=== PATIENT | female | born 1945 | race Caucasian/White ===

== ENCOUNTER 2017-12-15 11:50 | Emergency (ER) | payer MEDICARE, SELFPAY ==
[2017-12-15 11:50] VITALS: BP 149/100; PULSE 80; RESP 24; TEMP 37.1; O2SAT 94; BMI 43.2
--- NOTE | 2017-12-15 12:20 | VDLE_ITS ---
Reason For Study: RLE SWELLING RIGHT GSV is normal. CFV is compressible, spontaneous, phasic, competent and demonstrates normal augmentation. FV is compressible, spontaneous, phasic, competent and demonstrates normal augmentation. POP V is compressible, spontaneous, phasic, competent and demonstrates normal augmentation. T/P Trunk is compressible. PTV is compressible. RT PerV is compressible. Procedure Exam performed portable in ED. The exam was diagnostic. The study was technically difficult. A preliminary report was called and/or faxed to ED. Interpretation Summary There is no evidence of right lower extremity deep vein thrombosis. Right greater saphenous vein appears patent and compressible segmentally. Technically difficult examination Ordering Physician: Mika Bonilla Referring Physician: Adrien Kerr Performed By: Erika Hong, HIGINIO, RVT
[2017-12-15] MEDS: Ondansetron 4 MG/2 ML Vial IV (12:57)
[2017-12-15] MEDS: Morphine 4 MG/ML Syringe IV (12:57)
[2017-12-15 13:17] LABS: Absolute Lymphocyte Count 1.42 X10^3/ul (0.83-4.51); Absolute Neutrophil Count 7.2 X10^3/uL (2.0-7.7); Anion Gap 10 (5-15); BUN 26 mg/dL (7-18); BUN/Creat Ratio 14.8 RATIO (10-20); Basophil# 0.03 X10^3/uL; Basophil% 0.3 % (0-1); Calcium,Total 8.8 mg/dL (8.5-10.1); Chloride 107 mmol/L (98-107); Creatinine, Serum 1.76 mg/dL (0.55-1.02); EST Glomerular Filtration Rate 30 mL/min (>60); Eosinophil# 0.28 X10^3/uL; Eosinophils% 2.7 % (0-5); Est Glom Filt Rate - Afr Amer 37 mL/min (>60); Estimated Creatinine Clearance 26.38 ml/min; Glucose 237 mg/dL (74-106); Hemoglobin 10.6 g/dl (12.0-15.0); Lymphocyte # 1.42 X10^3/ul (4.0); Lymphocyte % 13.9 % (19-41); Mean Corp Hgb Conc 30.3 g/gl (32-36); Mean Corpuscular Hgb 29.2 pg (27.0-32.0); Mean Corpuscular Volume 96.4 fL (81-99); Mean Platelet Vol. 10.4 fl (6.2-12.0); Monocyte% 11.7 % (0-10); Neutrophil # 7.24 X10^3/uL (2.7-7.7); Neutrophil % 70.8 % (47-70); POSITIVE COUNT NO; POSITIVE DIFFERENTIAL NO; POSITIVE MORPHOLOGY NO; Platelet Count 288 K/mm3 (150-450); Potassium 5.1 mmol/L (3.5-5.1); RBC Distribution Width CV 14.8 % (11.6-14.6); RBC Distribution Width SD 52.1 fl (35.1-43.9); Red Blood Count 3.63 M/mm3 (4.2-5.4); Sodium Level 140 mmol/L (136-145); White Blood Count 10.2 K/mm3 (4.4-11.0)
[2017-12-15] MEDS: Diphth,Pertuss(Acell),Tet Vac 0.5 ML Vial IM (14:29)
[2017-12-15 15:13] VITALS: RESP 16; O2SAT 98
--- NOTE | 2017-12-15 15:20 | ED.VISSUMM ---
- ER Visit Summary Date of Service: 12/15/17 Chief Complaint: Right leg wound History of Present Illness: The patient is a [address] Adrien Kerr. She reports that she had a blister on her right leg that opened up approximately 3 weeks ago. States that she was on Bactrim initially and then begin clindamycin on December 12. Reports that she had a stabbing pain is 10 out of 10 with symptoms in a dependent position and 9 out of 10 when it is elevated. She denies any constitutional symptoms. No fever, chills, nausea, or vomiting. Physical Examination: Vitals: Stable. Afebrile. General: Well-nourished and well-developed. Head: Normocephalic atraumatic. Neck: Supple, no lymphadenopathy. No JVD. Nontender. Cardiovascular: Regular rate and rhythm. No murmurs. Respiratory: No respiratory distress. Clear to auscultation bilaterally. Abdominal: Soft, nontender, nondistended, normal bowel sounds. No guarding, rebound, or peritoneal signs. Back: Nontender. Extremities: There is an approximately 6 x 8 cm superficial ulcer that appears to be from an unroofed blister. There is minimal surrounding erythema. She has chronic venous stasis changes in her legs bilaterally. She does have a palpable dorsalis pedis pulse. Skin: Normal color, no rash. Neurologic: Alert and oriented ?3. Cranial nerves II through XII are intact. Normal strength and sensation. Psych: Normal affect. Test Results: CBC is marked for an H&H 10.6 35.0, segment neutrophils 71, lymphs at 14, monocytes 12. Chem-7 more for BUN 26, creatinine 1.76, Chris 237. Right lower extreme Dopplers negative. Emergency Department Course and Treatment: Patient had her tetanus updated. She was given morphine and vancomycin IV. She is resting comfortably. Treatment Plan: Patient is already scheduled for a appointment at the wound clinic in 2 days. She is instructed to continue her clindamycin and keep this appointment. A wound culture was sent. She is being given a prescription for Percocet. Return to the emergency department for any worsening symptoms. Disposition: To home in improved and stable condition. Impression: 1. Right leg wound. This note was generated with [employer] dictation software. It may contain incorrect words, spelling, and punctuation that were not noted in review of the chart prior to signing ED Disposition - Plan for ED Patient: Disposition: Home or Assisted Living Chief Complaint: Wound Instructions: ED Wound Care Prescriptions: Oxycodone HCl/Acetaminophen [Percocet 5/325] 1 tablet PO Q6H PRN PRN 3 Days #12 tablet PRN Reason: Pain Referrals: Clinic,Wound [None] - Keep Aaron appointment
[2017-12-15 16:04] VITALS: BP 128/46; PULSE 80; RESP 16; O2SAT 93
== END 2017-12-15 16:06 | disposition home or self-care (01) ==
PROVIDERS: Emergency Provider Emergency Medicine; Family Provider Family Medicine; PCP Family Medicine
DX: L97.919 Non-pressure chronic ulcer of unspecified part of right lower leg with unspecified severity (principal); S80.821A Blister (nonthermal), right lower leg, initial encounter; I87.8 Other specified disorders of veins; X58.XXXA Exposure to other specified factors, initial encounter; Y93.9 Activity, unspecified; Y92.9 Unspecified place or not applicable; E11.9 Type 2 diabetes mellitus without complications; I10 Essential (primary) hypertension; H40.9 Unspecified glaucoma; E03.9 Hypothyroidism, unspecified; M19.90 Unspecified osteoarthritis, unspecified site; Z79.82 Long term (current) use of aspirin; Z79.4 Long term (current) use of insulin; Z79.84 Long term (current) use of oral hypoglycemic drugs; Z79.899 Other long term (current) drug therapy; M79.604 Pain in right leg
CPT/HCPCS: 80048; 85025; 87070; 87075; 87076; 87186; 87205; 90715; 93971; 96365; 96374; 96375; 99282; J7030; J7040; J2405

== ENCOUNTER 2017-12-17 08:19 | Outpatient (RCR) | payer MEDICARE, SELFPAY ==
[2017-12-17 09:06] VITALS: BP 149/69; PULSE 70; RESP 18; TEMP 36.3; BMI 41.9
--- NOTE | 2017-12-17 12:07 | PCM.WC.HP ---
(1) Ulcer of right lower extremity with fat layer exposed Status: Chronic Current Visit: Yes Code(s): L97.912 - Non-pressure chronic ulcer of unspecified part of right lower leg with fat layer exposed (2) Type II diabetes mellitus Status: Chronic Current Visit: Yes Code(s): E11.9 - Type 2 diabetes mellitus without complications History of Present Illness Chief Complaint: Right lower extremity ulcers. History of Wound: Ms. Rivera is a 72-year-old was in a stable state of health until couple weeks ago when she developed cellulitis with subsequent blistering of her right lower extremity. She was seen by primary care physician and started on antibiotics and was also recommended Darwin wraps. She subsequently developed 2 ulcers in the right lower extremity and again was seen by her primary care physician who advised continued wrapping. Ulcer persisted and she was subsequently referred to the wound center. Apart from wrapping wound they have not done any other treatments to the wound. She denies chills, fever or otherwise feeling of unwell. Past Medical History Past Medical History: Chronic Problems Ulcer of right lower extremity with fat layer exposed (Chronic) Type II diabetes mellitus (Chronic) Allergies/Adverse Reactions: Allergies No Known Allergies Allergy (Verified 12/15/17 11:50) Home Medications: Ambulatory Orders Medication Instructions Recorded Clindamycin HCl 300 mg PO 4X/DAY 12/15/17 Furosemide [Lasix] 40 mg PO DAILY 12/15/17 Leflunomide 10 mg PO DAILY 12/15/17 Levothyroxine [Synthroid] 125 mcg PO DAILY 12/15/17 Lisinopril [Zestril] 20 mg PO DAILY 12/15/17 Lovastatin [Mevacor] 40 mg PO DAILY 12/15/17 Metformin HCl [Glucophage] 500 mg PO BIDCM 12/15/17 Omeprazole 40 mg PO DAILY 12/15/17 Albuterol Inhaler [Ventolin Hfa 2 puff INHALATION Q4H PRN PRN 12/17/17 (SP)] Amlodipine Besylate [Norvasc] 10 mg PO DAILY 12/17/17 Aspirin 81 mg PO DAILY 12/17/17 Atenolol 50 mg PO BID 12/17/17 Doxazosin Mesylate [Cardura] 4 mg PO QHS 12/17/17 Ergocalciferol [Vitamin D] 50,000 unit PO Q7D 12/17/17 Golimumab [Simponi Aria] 50 mg IV 12/17/17 Hydroxyzine HCl 25 mg PO Q4H PRN PRN 12/17/17 Insulin NPH Human Isophane 70 unit SQ DAILY 12/17/17 [Novolin N] Insulin NPH/Reg 70/30 [Novolin 40 units SC BIDAC 12/17/17 70/30] Prednisone 2.5 mg PO DAILY 12/17/17 Timolol Maleate [Timoptic-XE 0.5%] 1 drop EACH EYE BID 12/17/17 Smoking Status: Former smoker Review of Systems Constitutional: Denies: Anorexia, Malaise, Weakness Eyes: Denies: Pain, Redness HEENT: Denies: Difficulty Hearing, Difficulty Swallowing Cardiovascular: Denies: Chest Pain, Chest Tightness Respiratory: Denies: Cough, Hemoptysis Gastrointestinal: Denies: Abdominal Pain, Hematemesis, Vomiting Skin: Denies: Jaundice - Physical Exam Vital Signs Temp Pulse Resp BP 97.3 F L 70 18 149/69 H 12/17/17 09:06 12/17/17 09:06 12/17/17 09:06 12/17/17 09:06 General: Alert, Oriented x3, Cooperative, No apparent distress HEENT: Atraumatic Oral: Moist Mucosa Neck: Supple Lungs: Clear to auscultation, Normal air movement Cardiovascular: Regular rate, Regular Rhythm Abdomen: Soft, Non Tender, Obese Extremities: No cyanosis, Edema Skin: Ulcer/ Wound Wound Measurements and Assessment WC - Nurse 1 - General Ulcer Measurement Start: 12/17/17 08:38 Freq: Status: Active Protocol: Activity Type Activity Date Activity User E-Sign Co-Sign Detail Recorded Client Recorded Date Recorded By Document 12/17/17 09:06 [id number] 12/17/17 09:14 12/17/17 09:06 Wound Center Nurse 1 [Ulcer Assessment] #2 RIGHT ABERNATHY -Combined with other wound No -Current Size (cm) - Length 8.2 -Current Size (cm) - Width 6.3 -Current Size (cm) - Depth 0.1 -Total Square Cm 51.66 -Date of Last Picture (Recall this 12/17/17 field) -Photo Taken Yes -Epithelialization None Present -Tunneling No -Undermining/Tunneling No -Circular Undermining No -Exudate Amt Medium (34-66%) -Exudate Type Serosanguineous -Wound Margin Distinct, Outline Attached -Granulation Amt Large (67-100%) -Granulation Quality Red -Slough/Fibrin Yes -Necrosis Amt None Present (0 %) -Necrotic Tissue Type Adherent Slough -Structure Exposed None/Limited to Skin Breakdown -Texture (Lilia-wound Skin Appearance) No Abnormality Assessed -Moisture (Lilia-wound Skin Appearance No Abnormality ) Assessed -Temperature (Lilia-wound Skin No Abnormality Appearance) (Pt Warm) -Tenderness on Palpation (Lilia-wound Yes Skin Appearance) -Ulcer Cleansing Rinsed/ Irrigated with Saline -Foul Odor after Cleansing No -Anesthetic Used 4% Lidocaine Solution #1 RIGHT POST. CALF -Combined with other wound No -Current Size (cm) - Length 2.5 -Current Size (cm) - Width 3.0 -Current Size (cm) - Depth 0.1 -Total Square Cm 7.50 -Date of Last Picture (Recall this 12/17/17 field) -Photo Taken Yes -Epithelialization None Present -Tunneling No -Undermining/Tunneling No -Circular Undermining No -Exudate Amt Medium (34-66%) -Exudate Type Serosanguineous -Wound Margin Distinct, Outline Attached -Granulation Amt Medium (34-66%) -Granulation Quality Red -Slough/Fibrin Yes -Necrosis Amt None Present (0 %) -Necrotic Tissue Type Adherent Slough -Structure Exposed None/Limited to Skin Breakdown -Texture (Lilia-wound Skin Appearance) No Abnormality Assessed -Moisture (Lilia-wound Skin Appearance No Abnormality ) Assessed -Color (Lilia-wound Skin Appearance) No Abnormality Assessed -Temperature (Lilia-wound Skin No Abnormality Appearance) (Pt Warm) -Tenderness on Palpation (Lilia-wound Yes Skin Appearance) -Ulcer Cleansing Rinsed/ Irrigated with Saline -Foul Odor after Cleansing No -Anesthetic Used 4% Lidocaine Solution [Edema Assessment] -Lower Limb Edema Present Yes -Right Calf (cm) 37 -Right Ankle (cm) 22 -Left Calf (cm) 40 -Left Ankle (cm) 21.5 WC - Nurse 2 - General Ulcer CM Notes Start: 12/17/17 08:38 Freq: Status: Active Protocol: Activity Type Activity Date Activity User E-Sign Co-Sign Detail Recorded Client Recorded Date Recorded By Document 12/17/17 09:31 MW [id number] 12/17/17 09:40 MW 12/17/17 09:31 Wound Center Nurse 2 [Procedure/Treatment] #2 RIGHT ABERNATHY -Time 09:32 -Correct Patient Yes -Correct Side, Site, Position Yes -Correct Procedure Yes -Procedure Performed Yes -Type of Procedure Debridement -Clinical Debridement Subcutaneous -Post Debridement Size (cm) - Length 8.6 -Post Debridement Size (cm) - Width 6.8 -Post Debridement Size (cm) - Depth 0.1 -Total Square Cm 58.48 -Wound/Ulcer Outcome Not Healed -Ulcer Cleansing Rinsed/ Irrigated with Saline -Foul Odor after Cleansing No -Bioengineered Tissue No -Bleeding Controlled with Pressure -Treatment Response Procedure Tolerated Well #1 RIGHT POST. CALF -Time 09:32 -Correct Patient Yes -Correct Side, Site, Position Yes -Correct Procedure Yes -Procedure Performed Yes -Type of Procedure Debridement -Clinical Debridement Subcutaneous -Post Debridement Size (cm) - Length 2.5 -Post Debridement Size (cm) - Width 2.6 -Post Debridement Size (cm) - Depth 0.1 -Total Square Cm 6.50 -Wound/Ulcer Outcome Not Healed -Ulcer Cleansing Rinsed/ Irrigated with Saline -Foul Odor after Cleansing No -Bioengineered Tissue No -Bleeding Controlled with Pressure -Treatment Response Procedure Tolerated Well [See Physician Procedure note for Specifics] Pain Scale: 0-10 Numeric [Pain] -Is Patient Pain Free? Yes Musculoskeletal: No Muscle Wasting Neurological: Cranial nerves II-XII grossly intact Psych/Mental Status: Normal Affect Debridement Note Post-Debridement Measurements/Treatment WC - Nurse 2 - General Ulcer CM Notes Start: 12/17/17 08:38 Freq: Status: Active Protocol: Activity Type Activity Date Activity User E-Sign Co-Sign Detail Recorded Client Recorded Date Recorded By Document 12/17/17 09:31 MW [id number] 12/17/17 09:40 MW 12/17/17 09:31 Wound Center Nurse 2 #2 RIGHT ABERNATHY -Time 09:32 -Correct Patient Yes -Correct Side, Site, Position Yes -Correct Procedure Yes -Procedure Performed Yes -Type of Procedure Debridement -Clinical Debridement Subcutaneous -Post Debridement Size (cm) - Length 8.6 -Post Debridement Size (cm) - Width 6.8 -Post Debridement Size (cm) - Depth 0.1 -Total Square Cm 58.48 -Wound/Ulcer Outcome Not Healed -Ulcer Cleansing Rinsed/ Irrigated with Saline -Foul Odor after Cleansing No -Bioengineered Tissue No -Bleeding Controlled with Pressure -Treatment Response Procedure Tolerated Well #1 RIGHT POST. CALF -Time 09:32 -Correct Patient Yes -Correct Side, Site, Position Yes -Correct Procedure Yes -Procedure Performed Yes -Type of Procedure Debridement -Clinical Debridement Subcutaneous -Post Debridement Size (cm) - Length 2.5 -Post Debridement Size (cm) - Width 2.6 -Post Debridement Size (cm) - Depth 0.1 -Total Square Cm 6.50 -Wound/Ulcer Outcome Not Healed -Ulcer Cleansing Rinsed/ Irrigated with Saline -Foul Odor after Cleansing No -Bioengineered Tissue No -Bleeding Controlled with Pressure -Treatment Response Procedure Tolerated Well Pain Scale: 0-10 Numeric Is Patient Pain Free? Yes Wound debrided: Right lower extremity abernathy Wound Grade/Stage: Stage II Type of Debridement: Excisional debridement Anesthesia Used: 4% Lidocaine Solution Depth: Down to and including healthy tissue, in the subcutaneous layer Instrument Used: 7mm curette Tissue Removed: Slough and devitalized tissue Severity: Fat Layer Exposed Amount of bleeding with debridement: Mild Bleeding Controlled with: Pressure Patient tolerated procedure well - Additional Wound Wound debrided: Right lower extremity posterior Wound Grade/Stage: Stage II Type of Debridement: Excisional debridement Anesthesia Used: 4% Lidocaine Solution Depth: Down to and including healthy tissue, in the subcutaneous layer Percentage of wound debrided: 100 Instrument Used: 3mm curette Tissue Removed: Slough and devitalized tissue Severity: Fat Layer Exposed Amount of bleeding with debridement: Mild Patient tolerated procedure: Patient tolerated procedure well Assessment/Plan Active Problems Ulcer of right lower extremity with fat layer exposed (Chronic) Type II diabetes mellitus (Chronic) Assessment: Right anterior lower extremity ulcer with slightly exposed. Nonhealing. Right posterior lower extremity ulcer with fat layer exposed. Nonhealing. Type 2 diabetes mellitus. Plan: Debridement of both ulcers done as documented above. Procedure was well-tolerated. Free recall to both ulcers with Adaptic over top. Change daily to twice daily depending on drainage. Tubigrip's for edema management. Advised to elevate lower extremities when sitting and in bed. Increase protein intake also recommended. Avoid idle standing. Exercise and weight loss as tolerated. Optimal blood sugar control also recommended, follow-up with PCP. All her questions were answered and she was advised to call with any further questions or concerns. Follow-up in 1 week. This note was generated with [employer] software. It may contain incorrect words, spelling, and punctuation that were not noted in checking the note before signing.
== END 2017-12-21 23:59 ==
LOC: WC 08:19
PROVIDERS: Family Provider Family Medicine; PCP Family Medicine; Visit Provider Internal Medicine
DX: E11.622 Type 2 diabetes mellitus with other skin ulcer (principal); L97.812 Non-pressure chronic ulcer of other part of right lower leg with fat layer exposed; Z79.84 Long term (current) use of oral hypoglycemic drugs; Z79.899 Other long term (current) drug therapy; Z87.891 Personal history of nicotine dependence
CPT/HCPCS: 11042; 11045; 99213; G0463

== ENCOUNTER 2018-01-15 08:30 | Outpatient (RCR) | payer MEDICARE, SELFPAY ==
[2017-12-22 01:49] VITALS: BP 149/69; PULSE 70; RESP 18; TEMP 36.3
[2017-12-25 12:21] VITALS: BP 114/86; PULSE 83; RESP 18; TEMP 36.3
--- NOTE | 2017-12-25 13:31 | PCM.WC.PN ---
(1) Ulcer of right lower extremity with fat layer exposed Status: Chronic Current Visit: Yes Code(s): L97.912 - Non-pressure chronic ulcer of unspecified part of right lower leg with fat layer exposed (2) Type II diabetes mellitus Status: Chronic Current Visit: No Code(s): E11.9 - Type 2 diabetes mellitus without complications Type of Wound Chief Complaint: Right lower extremity ulcers. History of Wound: Ms. Rivera is a 72-year-old was in a stable state of health until couple weeks ago when she developed cellulitis with subsequent blistering of her right lower extremity. She was seen by primary care physician and started on antibiotics and was also recommended Darwin wraps. She subsequently developed 2 ulcers in the right lower extremity and again was seen by her primary care physician who advised continued wrapping. Ulcer persisted and she was subsequently referred to the wound center. Apart from wrapping wound they have not done any other treatments to the wound. She denies chills, fever or otherwise feeling of unwell. Progress of Wound: Stable. Has completed her course of antibiotic but still reports significant pain. - Physical Exam Vital Signs Temp Pulse Resp BP 97.3 F L 83 18 114/86 H 12/25/17 12:21 12/25/17 12:21 12/25/17 12:21 12/25/17 12:21 General: Alert, Oriented x3, Cooperative, No apparent distress HEENT: Atraumatic Oral: Moist Mucosa Neck: Supple Lungs: Normal air movement Extremities: No cyanosis, Edema Skin: Ulcer/ Wound Wound Measurements and Assessment WC - Nurse 1 - General Ulcer Measurement Start: 12/25/17 12:19 Freq: Status: Active Protocol: Activity Type Activity Date Activity User E-Sign Co-Sign Detail Recorded Client Recorded Date Recorded By Document 12/25/17 12:21 [id number] 12/25/17 12:24 TM 12/25/17 12:21 Wound Center Nurse 1 [Ulcer Assessment] #2 RIGHT BRIZUELA -Combined with other wound No -Current Size (cm) - Length 8.0 -Current Size (cm) - Width 6.2 -Current Size (cm) - Depth 0.1 -Total Square Cm 49.60 -Photo Taken No -Epithelialization Small 1-33% -Tunneling No -Undermining/Tunneling No -Circular Undermining No -Classification - Thickness Full Thickness without Exposed Support Structure -Exudate Amt Large (67-100%) -Exudate Type Serosanguineous -Wound Margin Distinct, Outline Attached -Granulation Amt Large (67-100%) -Granulation Quality Red -Slough/Fibrin Yes -Necrosis Amt Small (1-33%) -Necrotic Tissue Type Adherent Slough -Structure Exposed Fascia Fat Layer Exposed -Texture (Lilia-wound Skin Appearance) Assessed Friable Localized Edema -Moisture (Lilia-wound Skin Appearance No Abnormality ) Assessed -Color (Lilia-wound Skin Appearance) Assessed Erythema -Temperature (Lilia-wound Skin No Abnormality Appearance) (Pt Warm) -Tenderness on Palpation (Lilia-wound Yes Skin Appearance) -Ulcer Cleansing Rinsed/ Irrigated with Saline -Foul Odor after Cleansing No -Anesthetic Used 4% Lidocaine Solution 5% Lidocaine Gel #1 RIGHT POST. CALF -Combined with other wound No -Current Size (cm) - Length 2.1 -Current Size (cm) - Width 1.7 -Current Size (cm) - Depth 0.1 -Total Square Cm 3.57 -Photo Taken No -Epithelialization Small 1-33% -Tunneling No -Undermining/Tunneling No -Circular Undermining No -Classification - Thickness Full Thickness without Exposed Support Structure -Exudate Amt Small (1-33%) -Exudate Type Serosanguineous -Wound Margin Distinct, Outline Attached -Granulation Amt Medium (34-66%) -Granulation Quality So-Hi -Slough/Fibrin Yes -Necrosis Amt Medium (34-66%) -Necrotic Tissue Type Adherent Slough -Structure Exposed Fascia Fat Layer Exposed -Texture (Lilia-wound Skin Appearance) Assessed Localized Edema -Moisture (Lilia-wound Skin Appearance No Abnormality ) Assessed -Color (Lilia-wound Skin Appearance) Assessed Erythema -Temperature (Lilia-wound Skin No Abnormality Appearance) (Pt Warm) -Tenderness on Palpation (Lilia-wound No Skin Appearance) -Ulcer Cleansing Rinsed/ Irrigated with Saline -Foul Odor after Cleansing No -Anesthetic Used 4% Lidocaine Solution [Edema Assessment] -Lower Limb Edema Present Yes -Right Calf (cm) 36.6 -Right Ankle (cm) 21.7 WC - Nurse 2 - General Ulcer CM Notes Start: 12/25/17 12:19 Freq: Status: Active Protocol: Activity Type Activity Date Activity User E-Sign Co-Sign Detail Recorded Client Recorded Date Recorded By Document 12/25/17 12:42 MW [id number] 12/25/17 12:47 MW 12/25/17 12:42 Wound Center Nurse 2 [Procedure/Treatment] #2 RIGHT BRIZUELA -Time 12:44 -Correct Patient Yes -Correct Side, Site, Position Yes -Correct Procedure Yes -Procedure Performed Yes -Type of Procedure Debridement -Clinical Debridement Subcutaneous -Post Debridement Size (cm) - Length 8.0 -Post Debridement Size (cm) - Width 6.3 -Post Debridement Size (cm) - Depth 0.1 -Total Square Cm 50.40 -Wound/Ulcer Outcome Not Healed -Ulcer Cleansing Rinsed/ Irrigated with Saline -Foul Odor after Cleansing No -Bioengineered Tissue No -Bleeding Controlled with Pressure -Treatment Response Procedure Tolerated Well #1 RIGHT POST. CALF -Time 12:45 -Correct Patient Yes -Correct Side, Site, Position Yes -Correct Procedure Yes -Procedure Performed Yes -Type of Procedure Debridement -Clinical Debridement Subcutaneous -Post Debridement Size (cm) - Length 1.7 -Post Debridement Size (cm) - Width 2.0 -Post Debridement Size (cm) - Depth 0.1 -Total Square Cm 3.40 -Wound/Ulcer Outcome Not Healed -Ulcer Cleansing Rinsed/ Irrigated with Saline -Foul Odor after Cleansing No -Bioengineered Tissue No -Bleeding Controlled with Pressure -Treatment Response Procedure Tolerated Well [See Physician Procedure note for Specifics] Pain Scale: 0-10 Numeric [Pain] -Is Patient Pain Free? Yes Musculoskeletal: No Muscle Wasting Neurological: Cranial nerves II-XII grossly intact Psych/Mental Status: Normal Affect Debridement Note Post-Debridement Measurements/Treatment WC - Nurse 2 - General Ulcer CM Notes Start: 12/25/17 12:19 Freq: Status: Active Protocol: Activity Type Activity Date Activity User E-Sign Co-Sign Detail Recorded Client Recorded Date Recorded By Document 12/25/17 12:42 MW [id number] 12/25/17 12:47 MW 12/25/17 12:42 Wound Center Nurse 2 #2 RIGHT BRIZUELA -Time 12:44 -Correct Patient Yes -Correct Side, Site, Position Yes -Correct Procedure Yes -Procedure Performed Yes -Type of Procedure Debridement -Clinical Debridement Subcutaneous -Post Debridement Size (cm) - Length 8.0 -Post Debridement Size (cm) - Width 6.3 -Post Debridement Size (cm) - Depth 0.1 -Total Square Cm 50.40 -Wound/Ulcer Outcome Not Healed -Ulcer Cleansing Rinsed/ Irrigated with Saline -Foul Odor after Cleansing No -Bioengineered Tissue No -Bleeding Controlled with Pressure -Treatment Response Procedure Tolerated Well #1 RIGHT POST. CALF -Time 12:45 -Correct Patient Yes -Correct Side, Site, Position Yes -Correct Procedure Yes -Procedure Performed Yes -Type of Procedure Debridement -Clinical Debridement Subcutaneous -Post Debridement Size (cm) - Length 1.7 -Post Debridement Size (cm) - Width 2.0 -Post Debridement Size (cm) - Depth 0.1 -Total Square Cm 3.40 -Wound/Ulcer Outcome Not Healed -Ulcer Cleansing Rinsed/ Irrigated with Saline -Foul Odor after Cleansing No -Bioengineered Tissue No -Bleeding Controlled with Pressure -Treatment Response Procedure Tolerated Well Pain Scale: 0-10 Numeric Is Patient Pain Free? Yes Wound debrided: Right lower extremity ( Brizuela ) Wound Grade/Stage: Stage II Type of Debridement: Excisional debridement Anesthesia Used: 4% Lidocaine Solution Depth: Down to and including healthy tissue, in the subcutaneous layer Percentage of wound debrided: 100 Instrument Used: 7mm curette Tissue Removed: SLough and devitalized tissye Severity: Fat Layer Exposed Amount of bleeding with debridement: Mild Bleeding Controlled with: Pressure Patient tolerated procedure well - Additional Wound Wound debrided: Right lower extremity ( Posterior ) Wound Grade/Stage: Stage II Type of Debridement: Excisional debridement Anesthesia Used: 4% Lidocaine Solution Depth: Down to and including healthy tissue, in the subcutaneous layer Percentage of wound debrided: 100 Instrument Used: 7mm curette Tissue Removed: Slough and devitalized tissue Severity: Fat Layer Exposed Amount of bleeding with debridement: Mild Bleeding Controlled with: Pressure Patient tolerated procedure: Patient tolerated procedure well Assessment/Plan Active Problems Ulcer of right lower extremity with fat layer exposed (Chronic) Assessment: Right anterior lower extremity ulcer with slightly exposed. Nonhealing. Right posterior lower extremity ulcer with fat layer exposed. Nonhealing. Type 2 diabetes mellitus. Plan: Debridement of both ulcers done as documented above. Procedure was well-tolerated. Cultures taken due to significant tenderness. No differential warmth appreciated. Continue Fibrochol to both ulcers with adaptoc over top. Continue Tubigrip's for edema management. Advised to elevate lower extremities when sitting and in bed. Increased protein intake also recommended. Avoid idle standing. Exercise and weight loss as tolerated. Optimal blood sugar control, follow-up with PCP. All her questions were answered and she was advised to call with any further questions or concerns. Follow-up in 1 week. This note was generated with [employer] software. It may contain incorrect words, spelling, and punctuation that were not noted in checking the note before signing.
--- NOTE | 2017-12-25 13:36 | PN.PCM_ITS ---
(1) Ulcer of right lower extremity with fat layer exposed Status: Chronic Current Visit: Yes Code(s): L97.912 - Non-pressure chronic ulcer of unspecified part of right lower leg with fat layer exposed (2) Type II diabetes mellitus Status: Chronic Current Visit: No Code(s): E11.9 - Type 2 diabetes mellitus without complications Type of Wound Chief Complaint: Right lower extremity ulcers. History of Wound: Ms. Rivera is a 72-year-old was in a stable state of health until couple weeks ago when she developed cellulitis with subsequent blistering of her right lower extremity. She was seen by primary care physician and started on antibiotics and was also recommended Darwin wraps. She subsequently developed 2 ulcers in the right lower extremity and again was seen by her primary care physician who advised continued wrapping. Ulcer persisted and she was subsequently referred to the wound center. Apart from wrapping wound they have not done any other treatments to the wound. She denies chills, fever or otherwise feeling of unwell. Progress of Wound: Stable. Has completed her course of antibiotic but still reports significant pain. - Physical Exam Vital Signs Temp Pulse Resp BP 97.3 F L 83 18 114/86 H 12/25/17 12:21 12/25/17 12:21 12/25/17 12:21 12/25/17 12:21 General: Alert, Oriented x3, Cooperative, No apparent distress HEENT: Atraumatic Oral: Moist Mucosa Neck: Supple Lungs: Normal air movement Extremities: No cyanosis, Edema Skin: Ulcer/ Wound Wound Measurements and Assessment WC - Nurse 1 - General Ulcer Measurement Start: 12/25/17 12:19 Freq: Status: Active Protocol: Activity Type Activity Date Activity User E-Sign Co-Sign Detail Recorded Client Recorded Date Recorded By Document 12/25/17 12:21 [id number] 12/25/17 12:24 TM 12/25/17 12:21 Wound Center Nurse 1 [Ulcer Assessment] #2 RIGHT BRIZEULA -Combined with other wound No -Current Size (cm) - Length 8.0 -Current Size (cm) - Width 6.2 -Current Size (cm) - Depth 0.1 -Total Square Cm 49.60 -Photo Taken No -Epithelialization Small 1-33% -Tunneling No -Undermining/Tunneling No -Circular Undermining No -Classification - Thickness Full Thickness without Exposed Support Structure -Exudate Amt Large (67-100%) -Exudate Type Serosanguineous -Wound Margin Distinct, Outline Attached -Granulation Amt Large (67-100%) -Granulation Quality Red -Slough/Fibrin Yes -Necrosis Amt Small (1-33%) -Necrotic Tissue Type Adherent Slough -Structure Exposed Fascia Fat Layer Exposed -Texture (Lilia-wound Skin Appearance) Assessed Friable Localized Edema -Moisture (Lilia-wound Skin Appearance No Abnormality ) Assessed -Color (Lilia-wound Skin Appearance) Assessed Erythema -Temperature (Lilia-wound Skin No Abnormality Appearance) (Pt Warm) -Tenderness on Palpation (Lilia-wound Yes Skin Appearance) -Ulcer Cleansing Rinsed/ Irrigated with Saline -Foul Odor after Cleansing No -Anesthetic Used 4% Lidocaine Solution 5% Lidocaine Gel #1 RIGHT POST. CALF -Combined with other wound No -Current Size (cm) - Length 2.1 -Current Size (cm) - Width 1.7 -Current Size (cm) - Depth 0.1 -Total Square Cm 3.57 -Photo Taken No -Epithelialization Small 1-33% -Tunneling No -Undermining/Tunneling No -Circular Undermining No -Classification - Thickness Full Thickness without Exposed Support Structure -Exudate Amt Small (1-33%) -Exudate Type Serosanguineous -Wound Margin Distinct, Outline Attached -Granulation Amt Medium (34-66%) -Granulation Quality [place] -Slough/Fibrin Yes -Necrosis Amt Medium (34-66%) -Necrotic Tissue Type Adherent Slough -Structure Exposed Fascia Fat Layer Exposed -Texture (Lilia-wound Skin Appearance) Assessed Localized Edema -Moisture (Lilia-wound Skin Appearance No Abnormality ) Assessed -Color (Lilia-wound Skin Appearance) Assessed Erythema -Temperature (Lilia-wound Skin No Abnormality Appearance) (Pt Warm) -Tenderness on Palpation (Lilia-wound No Skin Appearance) -Ulcer Cleansing Rinsed/ Irrigated with Saline -Foul Odor after Cleansing No -Anesthetic Used 4% Lidocaine Solution [Edema Assessment] -Lower Limb Edema Present Yes -Right Calf (cm) 36.6 -Right Ankle (cm) 21.7 WC - Nurse 2 - General Ulcer CM Notes Start: 12/25/17 12:19 Freq: Status: Active Protocol: Activity Type Activity Date Activity User E-Sign Co-Sign Detail Recorded Client Recorded Date Recorded By Document 12/25/17 12:42 MW [id number] 12/25/17 12:47 MW 12/25/17 12:42 Wound Center Nurse 2 [Procedure/Treatment] #2 RIGHT BRIZUELA -Time 12:44 -Correct Patient Yes -Correct Side, Site, Position Yes -Correct Procedure Yes -Procedure Performed Yes -Type of Procedure Debridement -Clinical Debridement Subcutaneous -Post Debridement Size (cm) - Length 8.0 -Post Debridement Size (cm) - Width 6.3 -Post Debridement Size (cm) - Depth 0.1 -Total Square Cm 50.40 -Wound/Ulcer Outcome Not Healed -Ulcer Cleansing Rinsed/ Irrigated with Saline -Foul Odor after Cleansing No -Bioengineered Tissue No -Bleeding Controlled with Pressure -Treatment Response Procedure Tolerated Well #1 RIGHT POST. CALF -Time 12:45 -Correct Patient Yes -Correct Side, Site, Position Yes -Correct Procedure Yes -Procedure Performed Yes -Type of Procedure Debridement -Clinical Debridement Subcutaneous -Post Debridement Size (cm) - Length 1.7 -Post Debridement Size (cm) - Width 2.0 -Post Debridement Size (cm) - Depth 0.1 -Total Square Cm 3.40 -Wound/Ulcer Outcome Not Healed -Ulcer Cleansing Rinsed/ Irrigated with Saline -Foul Odor after Cleansing No -Bioengineered Tissue No -Bleeding Controlled with Pressure -Treatment Response Procedure Tolerated Well [See Physician Procedure note for Specifics] Pain Scale: 0-10 Numeric [Pain] -Is Patient Pain Free? Yes Musculoskeletal: No Muscle Wasting Neurological: Cranial nerves II-XII grossly intact Psych/Mental Status: Normal Affect Debridement Note Post-Debridement Measurements/Treatment WC - Nurse 2 - General Ulcer CM Notes Start: 12/25/17 12:19 Freq: Status: Active Protocol: Activity Type Activity Date Activity User E-Sign Co-Sign Detail Recorded Client Recorded Date Recorded By Document 12/25/17 12:42 MW [id number] 12/25/17 12:47 MW 12/25/17 12:42 Wound Center Nurse 2 #2 RIGHT BRIZUELA -Time 12:44 -Correct Patient Yes -Correct Side, Site, Position Yes -Correct Procedure Yes -Procedure Performed Yes -Type of Procedure Debridement -Clinical Debridement Subcutaneous -Post Debridement Size (cm) - Length 8.0 -Post Debridement Size (cm) - Width 6.3 -Post Debridement Size (cm) - Depth 0.1 -Total Square Cm 50.40 -Wound/Ulcer Outcome Not Healed -Ulcer Cleansing Rinsed/ Irrigated with Saline -Foul Odor after Cleansing No -Bioengineered Tissue No -Bleeding Controlled with Pressure -Treatment Response Procedure Tolerated Well #1 RIGHT POST. CALF -Time 12:45 -Correct Patient Yes -Correct Side, Site, Position Yes -Correct Procedure Yes -Procedure Performed Yes -Type of Procedure Debridement -Clinical Debridement Subcutaneous -Post Debridement Size (cm) - Length 1.7 -Post Debridement Size (cm) - Width 2.0 -Post Debridement Size (cm) - Depth 0.1 -Total Square Cm 3.40 -Wound/Ulcer Outcome Not Healed -Ulcer Cleansing Rinsed/ Irrigated with Saline -Foul Odor after Cleansing No -Bioengineered Tissue No -Bleeding Controlled with Pressure -Treatment Response Procedure Tolerated Well Pain Scale: 0-10 Numeric Is Patient Pain Free? Yes Wound debrided: Right lower extremity ( Brizuela ) Wound Grade/Stage: Stage II Type of Debridement: Excisional debridement Anesthesia Used: 4% Lidocaine Solution Depth: Down to and including healthy tissue, in the subcutaneous layer Percentage of wound debrided: 100 Instrument Used: 7mm curette Tissue Removed: SLough and devitalized tissye Severity: Fat Layer Exposed Amount of bleeding with debridement: Mild Bleeding Controlled with: Pressure Patient tolerated procedure well - Additional Wound Wound debrided: Right lower extremity ( Posterior ) Wound Grade/Stage: Stage II Type of Debridement: Excisional debridement Anesthesia Used: 4% Lidocaine Solution Depth: Down to and including healthy tissue, in the subcutaneous layer Percentage of wound debrided: 100 Instrument Used: 7mm curette Tissue Removed: Slough and devitalized tissue Severity: Fat Layer Exposed Amount of bleeding with debridement: Mild Bleeding Controlled with: Pressure Patient tolerated procedure: Patient tolerated procedure well Assessment/Plan Active Problems Ulcer of right lower extremity with fat layer exposed (Chronic) Assessment: Right anterior lower extremity ulcer with slightly exposed. Nonhealing. Right posterior lower extremity ulcer with fat layer exposed. Nonhealing. Type 2 diabetes mellitus. Plan: Debridement of both ulcers done as documented above. Procedure was well- tolerated. Cultures taken due to significant tenderness. No differential warmth appreciated. Continue Fibrochol to both ulcers with adaptoc over top. Continue Tubigrip's for edema management. Advised to elevate lower extremities when sitting and in bed. Increased protein intake also recommended. Avoid idle standing. Exercise and weight loss as tolerated. Optimal blood sugar control, follow-up with PCP. All her questions were answered and she was advised to call with any further questions or concerns. Follow-up in 1 week. This note was generated with [employer] software. It may contain incorrect words, spelling, and punctuation that were not noted in checking the note before signing.
--- NOTE | 2017-12-28 11:55 | LEAS ---
Arterial Study - Arterial Study Arterial Study: This is a 72-year-old female with a history of diabetes mellitus. She also presents with a history of peripheral arterial occlusive disease. She is brought to the noninvasive vascular laboratory at this time for the purpose of bilateral noninvasive lower extremity arterial assessment. Doppler signal assessment was used to evaluate the pulses at ankle level bilaterally. On the right, the posterior tibial pulse was monophasic. The right dorsalis pedis pulse was biphasic. The left posterior tibial pulse was monophasic. The left dorsalis pedis pulse was biphasic. Segmental limb pressures were obtained bilaterally. The right ankle pressure, as determined by posterior tibial pulse, was measured at 82 mmHg. The right ankle pressure, as determined by dorsalis pedis pulse, could not be determined due to the noncompressibility of the vasculature. The right digital pressure was measured at 54 mmHg. The left ankle pressure, as determined by posterior tibial and dorsalis pedis pulses, could not be determined due to the noncompressibility of the vasculature. The left digital pressure was measured at 52 mmHg. Pulse?volume recordings were obtained bilaterally and segmentally. Waveform amplitudes appeared to be satisfactory at all levels bilaterally, including low thigh, calf, ankle, and digital levels. The resting right ankle?brachial index wass calculated to be 0.44. The resting left ankle?brachial index could not be calculated due to the noncompressibility of the vasculature. Digital?brachial indices were calculated bilaterally. The right digital-brachial index was calculated to be 0.29. The left digital-brachial index was calculated to be 0.28. Impression: Based upon the findings of this resting noninvasive lower extremity arterial study, there is evidence of severe arterial occlusive disease in the lower extremities bilaterally. Monophasic and biphasic waveforms were noted at ankle level bilaterally, suggesting moderate to severe arterial occlusive disease bilaterally. Furthermore, the resting right ankle?brachial index is severely diminished, suggesting the presence of severe arterial occlusive disease at ankle level on the right. The resting left ankle?brachial index could not be calculated due to the noncompressibility of the vasculature. Digital-brachial indices are severely diminished bilaterally, suggesting severe impairment of arterial flow at digital levels bilaterally. Clinical correlation is advised.
--- NOTE | 2017-12-28 12:04 | LEAS_ITS ---
Arterial Study - Arterial Study Arterial Study: This is a 72-year-old female with a history of diabetes mellitus. She also presents with a history of peripheral arterial occlusive disease. She is brought to the noninvasive vascular laboratory at this time for the purpose of bilateral noninvasive lower extremity arterial assessment. Doppler signal assessment was used to evaluate the pulses at ankle level bilaterally. On the right, the posterior tibial pulse was monophasic. The right dorsalis pedis pulse was biphasic. The left posterior tibial pulse was monophasic. The left dorsalis pedis pulse was biphasic. Segmental limb pressures were obtained bilaterally. The right ankle pressure, as determined by posterior tibial pulse, was measured at 82 mmHg. The right ankle pressure, as determined by dorsalis pedis pulse, could not be determined due to the noncompressibility of the vasculature. The right digital pressure was measured at 54 mmHg. The left ankle pressure, as determined by posterior tibial and dorsalis pedis pulses, could not be determined due to the noncompressibility of the vasculature. The left digital pressure was measured at 52 mmHg. Pulse?volume recordings were obtained bilaterally and segmentally. Waveform amplitudes appeared to be satisfactory at all levels bilaterally, including low thigh, calf, ankle, and digital levels. The resting right ankle?brachial index wass calculated to be 0.44. The resting left ankle?brachial index could not be calculated due to the noncompressibility of the vasculature. Digital?brachial indices were calculated bilaterally. The right digital- brachial index was calculated to be 0.29. The left digital-brachial index was calculated to be 0.28. Impression: Based upon the findings of this resting noninvasive lower extremity arterial study, there is evidence of severe arterial occlusive disease in the lower extremities bilaterally. Monophasic and biphasic waveforms were noted at ankle level bilaterally, suggesting moderate to severe arterial occlusive disease bilaterally. Furthermore, the resting right ankle?brachial index is se verely diminished, suggesting the presence of severe arterial occlusive disease at ankle level on the right. The resting left ankle?brachial index could not be calculated due to the noncompressibility of the vasculature. Digital-brachial indices are severely diminished bilaterally, suggesting severe impairment of arterial flow at digital levels bilaterally. Clinical correlation is advised.
[2018-01-01 12:40] VITALS: BP 135/73; PULSE 73; RESP 16; TEMP 36.3
--- NOTE | 2018-01-01 16:02 | PCM.WC.PN ---
(1) Ulcer of right lower extremity with fat layer exposed Status: Chronic Current Visit: Yes Code(s): L97.912 - Non-pressure chronic ulcer of unspecified part of right lower leg with fat layer exposed (2) Type II diabetes mellitus Status: Chronic Current Visit: No Code(s): E11.9 - Type 2 diabetes mellitus without complications Type of Wound Date of Service: 01/01/18 Chief Complaint: Right lower extremity ulcers. History of Wound: Ms. Rivera is a 72-year-old was in a stable state of health until couple weeks ago when she developed cellulitis with subsequent blistering of her right lower extremity. She was seen by primary care physician and started on antibiotics and was also recommended Darwin wraps. She subsequently developed 2 ulcers in the right lower extremity and again was seen by her primary care physician who advised continued wrapping. Ulcer persisted and she was subsequently referred to the wound center. Apart from wrapping wound they have not done any other treatments to the wound. She denies chills, fever or otherwise feeling of unwell. Progress of Wound: No acute complaints at this time. Still reports significant right lower extremity pain. Has had her vascular studies done. - Physical Exam Vital Signs Temp Pulse Resp BP 97.3 F L 73 16 135/73 H 01/01/18 12:40 01/01/18 12:40 01/01/18 12:40 01/01/18 12:40 General: Alert, Oriented x3, Cooperative, No apparent distress HEENT: Atraumatic Oral: Moist Mucosa Neck: Supple Lungs: Normal air movement Extremities: No cyanosis, Edema Skin: Ulcer/ Wound Wound Measurements and Assessment WC - Nurse 1 - General Ulcer Measurement Start: 12/25/17 12:19 Freq: Status: Active Protocol: Activity Type Activity Date Activity User E-Sign Co-Sign Detail Recorded Client Recorded Date Recorded By Document 01/01/18 12:40 [facility] [id number] 01/01/18 12:48 [facility] 01/01/18 12:40 Wound Center Nurse 1 [Ulcer Assessment] #2 RIGHT JONES -Combined with other wound No -Current Size (cm) - Length 7.3 -Current Size (cm) - Width 4.5 -Current Size (cm) - Depth 0.1 -Total Square Cm 32.85 -Photo Taken No -Epithelialization Small 1-33% -Tunneling No -Undermining/Tunneling No -Circular Undermining No -Exudate Amt Small (1-33%) -Exudate Type Serosanguineous -Wound Margin Distinct, Outline Attached -Granulation Amt Medium (34-66%) -Granulation Quality Red -Slough/Fibrin Yes -Necrosis Amt Medium (34-66%) -Necrotic Tissue Type Adherent Slough -Texture (Lilia-wound Skin Appearance) Scarring -Moisture (Lilia-wound Skin Appearance Dry/Scaly ) -Color (Lilia-wound Skin Appearance) Assessed -Temperature (Lilia-wound Skin No Abnormality Appearance) (Pt Warm) -Tenderness on Palpation (Lilia-wound Yes Skin Appearance) -Ulcer Cleansing Rinsed/ Irrigated with Saline -Foul Odor after Cleansing No -Anesthetic Used 4% Lidocaine Solution 5% Lidocaine Gel #1 RIGHT POST. CALF -Combined with other wound No -Current Size (cm) - Length 0.8 -Current Size (cm) - Width 0.8 -Current Size (cm) - Depth 0.1 -Total Square Cm 0.64 -Photo Taken No -Epithelialization None Present -Tunneling No -Undermining/Tunneling No -Circular Undermining No -Exudate Amt Small (1-33%) -Exudate Type Serosanguineous -Wound Margin Distinct, Outline Attached -Granulation Amt Medium (34-66%) -Granulation Quality Red -Slough/Fibrin Yes -Necrosis Amt Medium (34-66%) -Necrotic Tissue Type Adherent Slough -Texture (Lilia-wound Skin Appearance) Scarring -Moisture (Lilia-wound Skin Appearance Dry/Scaly ) -Color (Lilia-wound Skin Appearance) Assessed -Temperature (Lilia-wound Skin No Abnormality Appearance) (Pt Warm) -Tenderness on Palpation (Lilia-wound Yes Skin Appearance) -Ulcer Cleansing Rinsed/ Irrigated with Saline -Foul Odor after Cleansing No -Anesthetic Used 4% Lidocaine Solution 5% Lidocaine Gel [Edema Assessment] -Lower Limb Edema Present Yes -Right Calf (cm) 38 -Right Ankle (cm) 21.5 WC - Nurse 2 - General Ulcer CM Notes Start: 12/25/17 12:19 Freq: Status: Active Protocol: Activity Type Activity Date Activity User E-Sign Co-Sign Detail Recorded Client Recorded Date Recorded By Document 01/01/18 12:53 MW [id number] 01/01/18 13:02 MW 01/01/18 12:53 Wound Center Nurse 2 [Procedure/Treatment] #2 RIGHT JONES -Time 12:53 -Correct Patient Yes -Correct Side, Site, Position Yes -Correct Procedure Yes -Procedure Performed Yes -Type of Procedure Debridement -Clinical Debridement Subcutaneous -Post Debridement Size (cm) - Length 7.0 -Post Debridement Size (cm) - Width 5.8 -Post Debridement Size (cm) - Depth 0.1 -Total Square Cm 40.60 -Wound/Ulcer Outcome Not Healed -Ulcer Cleansing Rinsed/ Irrigated with Saline -Foul Odor after Cleansing No -Bioengineered Tissue No -Bleeding Controlled with Pressure -Treatment Response Procedure Tolerated Well #1 RIGHT POST. CALF -Time 12:56 -Correct Patient Yes -Correct Side, Site, Position Yes -Correct Procedure Yes -Procedure Performed Yes -Type of Procedure Debridement -Clinical Debridement Subcutaneous -Post Debridement Size (cm) - Length 1.2 -Post Debridement Size (cm) - Width 1.3 -Post Debridement Size (cm) - Depth 0.1 -Total Square Cm 1.56 -Wound/Ulcer Outcome Not Healed -Ulcer Cleansing Rinsed/ Irrigated with Saline -Foul Odor after Cleansing No -Bioengineered Tissue No -Bleeding Controlled with Pressure -Treatment Response Procedure Tolerated Well [See Physician Procedure note for Specifics] Pain Scale: 0-10 Numeric [Pain] -Is Patient Pain Free? Yes Musculoskeletal: No Muscle Wasting Neurological: Cranial nerves II-XII grossly intact Psych/Mental Status: Normal Affect Debridement Note Post-Debridement Measurements/Treatment WC - Nurse 2 - General Ulcer CM Notes Start: 12/25/17 12:19 Freq: Status: Active Protocol: Activity Type Activity Date Activity User E-Sign Co-Sign Detail Recorded Client Recorded Date Recorded By Document 12/25/17 12:42 MW [id number] 12/25/17 12:47 MW Document 01/01/18 12:53 MW [id number] 01/01/18 13:02 MW 12/25/17 01/01/18 12:42 12:53 Wound Center Nurse 2 #2 RIGHT JONES -Time 12:44 12:53 -Correct Patient Yes Yes -Correct Side, Site, Position Yes Yes -Correct Procedure Yes Yes -Procedure Performed Yes Yes -Type of Procedure Debridement Debridement -Clinical Debridement Subcutaneous Subcutaneous -Post Debridement Size (cm) - Length 8.0 7.0 -Post Debridement Size (cm) - Width 6.3 5.8 -Post Debridement Size (cm) - Depth 0.1 0.1 -Total Square Cm 50.40 40.60 -Wound/Ulcer Outcome Not Healed Not Healed -Ulcer Cleansing Rinsed/ Rinsed/ Irrigated with Irrigated with Saline Saline -Foul Odor after Cleansing No No -Bioengineered Tissue No No -Bleeding Controlled with Pressure Pressure -Treatment Response Procedure Procedure Tolerated Well Tolerated Well #1 RIGHT POST. CALF -Time 12:45 12:56 -Correct Patient Yes Yes -Correct Side, Site, Position Yes Yes -Correct Procedure Yes Yes -Procedure Performed Yes Yes -Type of Procedure Debridement Debridement -Clinical Debridement Subcutaneous Subcutaneous -Post Debridement Size (cm) - Length 1.7 1.2 -Post Debridement Size (cm) - Width 2.0 1.3 -Post Debridement Size (cm) - Depth 0.1 0.1 -Total Square Cm 3.40 1.56 -Wound/Ulcer Outcome Not Healed Not Healed -Ulcer Cleansing Rinsed/ Rinsed/ Irrigated with Irrigated with Saline Saline -Foul Odor after Cleansing No No -Bioengineered Tissue No No -Bleeding Controlled with Pressure Pressure -Treatment Response Procedure Procedure Tolerated Well Tolerated Well Pain Scale: 0-10 Numeric Is Patient Pain Free? Yes Yes Wound debrided: Right lower extremity anterior Wound Grade/Stage: Stage II Type of Debridement: Excisional debridement Anesthesia Used: 4% Lidocaine Solution Depth: Down to and including healthy tissue, in the subcutaneous layer Percentage of wound debrided: 100 Instrument Used: 7mm curette Tissue Removed: Devitalized tissue and slough Severity: Fat Layer Exposed Amount of bleeding with debridement: Mild Bleeding Controlled with: Pressure Patient tolerated procedure well - Additional Wound Wound debrided: Right lower extremity posterior Wound Grade/Stage: Stage II Type of Debridement: Excisional debridement Anesthesia Used: 4% Lidocaine Solution Depth: Down to and including healthy tissue, in the subcutaneous layer Percentage of wound debrided: 100 Instrument Used: 7mm curette Tissue Removed: Slough and devitalized tissue Severity: Fat Layer Exposed Amount of bleeding with debridement: Mild Bleeding Controlled with: Pressure Patient tolerated procedure: Patient tolerated procedure well Assessment/Plan Active Problems Ulcer of right lower extremity with fat layer exposed (Chronic) Assessment: Right anterior lower extremity ulcer with slightly exposed. Nonhealing. Right posterior lower extremity ulcer with fat layer exposed. Nonhealing. Type 2 diabetes mellitus. Plan: Vascular studies suggestive of moderate - severe peripheral arterial disease on her bilateral lower extremity. Debridement of both ulcers done as documented above. Procedure was well-tolerated. Continue Fibracol with Adaptic over top. Change daily. Will start on ciprofloxacin per culture and sensitivity. Continue Tubigrip's for edema management. Advised to elevate lower extremities when sitting and in bed. Increased protein intake also recommended. Avoid idle standing. Exercise and weight loss as tolerated. Optimal blood sugar control, follow-up with PCP. Referred to Dr. Carrizales for management of peripheral arterial disease. All her questions were answered and she was advised to call with any further questions or concerns. Follow-up in 2 weeks. This note was generated with [employer] dictation software. It may contain incorrect words, spelling, and punctuation that were not noted in checking the note before signing.
--- NOTE | 2018-01-01 16:06 | PN.PCM_ITS ---
(1) Ulcer of right lower extremity with fat layer exposed Status: Chronic Current Visit: Yes Code(s): L97.912 - Non-pressure chronic ulcer of unspecified part of right lower leg with fat layer exposed (2) Type II diabetes mellitus Status: Chronic Current Visit: No Code(s): E11.9 - Type 2 diabetes mellitus without complications Type of Wound Date of Service: 01/01/18 Chief Complaint: Right lower extremity ulcers. History of Wound: Ms. Rivera is a 72-year-old was in a stable state of health until couple weeks ago when she developed cellulitis with subsequent blistering of her right lower extremity. She was seen by primary care physician and started on antibiotics and was also recommended Darwin wraps. She subsequently developed 2 ulcers in the right lower extremity and again was seen by her primary care physician who advised continued wrapping. Ulcer persisted and she was subsequently referred to the wound center. Apart from wrapping wound they have not done any other treatments to the wound. She denies chills, fever or otherwise feeling of unwell. Progress of Wound: No acute complaints at this time. Still reports significant right lower extremity pain. Has had her vascular studies done. - Physical Exam Vital Signs Temp Pulse Resp BP 97.3 F L 73 16 135/73 H 01/01/18 12:40 01/01/18 12:40 01/01/18 12:40 01/01/18 12:40 General: Alert, Oriented x3, Cooperative, No apparent distress HEENT: Atraumatic Oral: Moist Mucosa Neck: Supple Lungs: Normal air movement Extremities: No cyanosis, Edema Skin: Ulcer/ Wound Wound Measurements and Assessment WC - Nurse 1 - General Ulcer Measurement Start: 12/25/17 12:19 Freq: Status: Active Protocol: Activity Type Activity Date Activity User E-Sign Co-Sign Detail Recorded Client Recorded Date Recorded By Document 01/01/18 12:40 [facility] [id number] 01/01/18 12:48 [facility] 01/01/18 12:40 Wound Center Nurse 1 [Ulcer Assessment] #2 RIGHT JONES -Combined with other wound No -Current Size (cm) - Length 7.3 -Current Size (cm) - Width 4.5 -Current Size (cm) - Depth 0.1 -Total Square Cm 32.85 -Photo Taken No -Epithelialization Small 1-33% -Tunneling No -Undermining/Tunneling No -Circular Undermining No -Exudate Amt Small (1-33%) -Exudate Type Serosanguineous -Wound Margin Distinct, Outline Attached -Granulation Amt Medium (34-66%) -Granulation Quality Red -Slough/Fibrin Yes -Necrosis Amt Medium (34-66%) -Necrotic Tissue Type Adherent Slough -Texture (Lilia-wound Skin Appearance) Scarring -Moisture (Lilia-wound Skin Appearance Dry/Scaly ) -Color (Lilia-wound Skin Appearance) Assessed -Temperature (Lilia-wound Skin No Abnormality Appearance) (Pt Warm) -Tenderness on Palpation (Lilia-wound Yes Skin Appearance) -Ulcer Cleansing Rinsed/ Irrigated with Saline -Foul Odor after Cleansing No -Anesthetic Used 4% Lidocaine Solution 5% Lidocaine Gel #1 RIGHT POST. CALF -Combined with other wound No -Current Size (cm) - Length 0.8 -Current Size (cm) - Width 0.8 -Current Size (cm) - Depth 0.1 -Total Square Cm 0.64 -Photo Taken No -Epithelialization None Present -Tunneling No -Undermining/Tunneling No -Circular Undermining No -Exudate Amt Small (1-33%) -Exudate Type Serosanguineous -Wound Margin Distinct, Outline Attached -Granulation Amt Medium (34-66%) -Granulation Quality Red -Slough/Fibrin Yes -Necrosis Amt Medium (34-66%) -Necrotic Tissue Type Adherent Slough -Texture (Lilia-wound Skin Appearance) Scarring -Moisture (Lilia-wound Skin Appearance Dry/Scaly ) -Color (Lilia-wound Skin Appearance) Assessed -Temperature (Lilia-wound Skin No Abnormality Appearance) (Pt Warm) -Tenderness on Palpation (Lilia-wound Yes Skin Appearance) -Ulcer Cleansing Rinsed/ Irrigated with Saline -Foul Odor after Cleansing No -Anesthetic Used 4% Lidocaine Solution 5% Lidocaine Gel [Edema Assessment] -Lower Limb Edema Present Yes -Right Calf (cm) 38 -Right Ankle (cm) 21.5 WC - Nurse 2 - General Ulcer CM Notes Start: 12/25/17 12:19 Freq: Status: Active Protocol: Activity Type Activity Date Activity User E-Sign Co-Sign Detail Recorded Client Recorded Date Recorded By Document 01/01/18 12:53 MW [id number] 01/01/18 13:02 MW 01/01/18 12:53 Wound Center Nurse 2 [Procedure/Treatment] #2 RIGHT JONES -Time 12:53 -Correct Patient Yes -Correct Side, Site, Position Yes -Correct Procedure Yes -Procedure Performed Yes -Type of Procedure Debridement -Clinical Debridement Subcutaneous -Post Debridement Size (cm) - Length 7.0 -Post Debridement Size (cm) - Width 5.8 -Post Debridement Size (cm) - Depth 0.1 -Total Square Cm 40.60 -Wound/Ulcer Outcome Not Healed -Ulcer Cleansing Rinsed/ Irrigated with Saline -Foul Odor after Cleansing No -Bioengineered Tissue No -Bleeding Controlled with Pressure -Treatment Response Procedure Tolerated Well #1 RIGHT POST. CALF -Time 12:56 -Correct Patient Yes -Correct Side, Site, Position Yes -Correct Procedure Yes -Procedure Performed Yes -Type of Procedure Debridement -Clinical Debridement Subcutaneous -Post Debridement Size (cm) - Length 1.2 -Post Debridement Size (cm) - Width 1.3 -Post Debridement Size (cm) - Depth 0.1 -Total Square Cm 1.56 -Wound/Ulcer Outcome Not Healed -Ulcer Cleansing Rinsed/ Irrigated with Saline -Foul Odor after Cleansing No -Bioengineered Tissue No -Bleeding Controlled with Pressure -Treatment Response Procedure Tolerated Well [See Physician Procedure note for Specifics] Pain Scale: 0-10 Numeric [Pain] -Is Patient Pain Free? Yes Musculoskeletal: No Muscle Wasting Neurological: Cranial nerves II-XII grossly intact Psych/Mental Status: Normal Affect Debridement Note Post-Debridement Measurements/Treatment WC - Nurse 2 - General Ulcer CM Notes Start: 12/25/17 12:19 Freq: Status: Active Protocol: Activity Type Activity Date Activity User E-Sign Co-Sign Detail Recorded Client Recorded Date Recorded By Document 12/25/17 12:42 MW [id number] 12/25/17 12:47 MW Document 01/01/18 12:53 MW [id number] 01/01/18 13:02 MW 12/25/17 01/01/18 12:42 12:53 Wound Center Nurse 2 #2 RIGHT JONES -Time 12:44 12:53 -Correct Patient Yes Yes -Correct Side, Site, Position Yes Yes -Correct Procedure Yes Yes -Procedure Performed Yes Yes -Type of Procedure Debridement Debridement -Clinical Debridement Subcutaneous Subcutaneous -Post Debridement Size (cm) - Length 8.0 7.0 -Post Debridement Size (cm) - Width 6.3 5.8 -Post Debridement Size (cm) - Depth 0.1 0.1 -Total Square Cm 50.40 40.60 -Wound/Ulcer Outcome Not Healed Not Healed -Ulcer Cleansing Rinsed/ Rinsed/ Irrigated with Irrigated with Saline Saline -Foul Odor after Cleansing No No -Bioengineered Tissue No No -Bleeding Controlled with Pressure Pressure -Treatment Response Procedure Procedure Tolerated Well Tolerated Well #1 RIGHT POST. CALF -Time 12:45 12:56 -Correct Patient Yes Yes -Correct Side, Site, Position Yes Yes -Correct Procedure Yes Yes -Procedure Performed Yes Yes -Type of Procedure Debridement Debridement -Clinical Debridement Subcutaneous Subcutaneous -Post Debridement Size (cm) - Length 1.7 1.2 -Post Debridement Size (cm) - Width 2.0 1.3 -Post Debridement Size (cm) - Depth 0.1 0.1 -Total Square Cm 3.40 1.56 -Wound/Ulcer Outcome Not Healed Not Healed -Ulcer Cleansing Rinsed/ Rinsed/ Irrigated with Irrigated with Saline Saline -Foul Odor after Cleansing No No -Bioengineered Tissue No No -Bleeding Controlled with Pressure Pressure -Treatment Response Procedure Procedure Tolerated Well Tolerated Well Pain Scale: 0-10 Numeric Is Patient Pain Free? Yes Yes Wound debrided: Right lower extremity anterior Wound Grade/Stage: Stage II Type of Debridement: Excisional debridement Anesthesia Used: 4% Lidocaine Solution Depth: Down to and including healthy tissue, in the subcutaneous layer Percentage of wound debrided: 100 Instrument Used: 7mm curette Tissue Removed: Devitalized tissue and slough Severity: Fat Layer Exposed Amount of bleeding with debridement: Mild Bleeding Controlled with: Pressure Patient tolerated procedure well - Additional Wound Wound debrided: Right lower extremity posterior Wound Grade/Stage: Stage II Type of Debridement: Excisional debridement Anesthesia Used: 4% Lidocaine Solution Depth: Down to and including healthy tissue, in the subcutaneous layer Percentage of wound debrided: 100 Instrument Used: 7mm curette Tissue Removed: Slough and devitalized tissue Severity: Fat Layer Exposed Amount of bleeding with debridement: Mild Bleeding Controlled with: Pressure Patient tolerated procedure: Patient tolerated procedure well Assessment/Plan Active Problems Ulcer of right lower extremity with fat layer exposed (Chronic) Assessment: Right anterior lower extremity ulcer with slightly exposed. Nonhealing. Right posterior lower extremity ulcer with fat layer exposed. Nonhealing. Type 2 diabetes mellitus. Plan: Vascular studies suggestive of moderate - severe peripheral arterial disease on her bilateral lower extremity. Debridement of both ulcers done as documented above. Procedure was well-tolerated. Continue Fibracol with Adaptic over top. Change daily. Will start on ciprofloxacin per culture and sensitivity. Continue Tubigrip's for edema management. Advised to elevate lower extremities when sitting and in bed. Increased protein intake also recommended. Avoid idle standing. Exercise and weight loss as tolerated. Optimal blood sugar control, follow-up with PCP. Referred to Dr. Carrizales for management of peripheral arterial disease. All her questions were answered and she was advised to call with any further questions or concerns. Follow-up in 2 weeks. This note was generated with [employer] dictation software. It may contain incorrect words, spelling, and punctuation that were not noted in checking the n ote before signing.
[2018-01-08 10:18] VITALS: BP 109/54; PULSE 71; RESP 18; TEMP 35.9
[2018-01-15 08:44] VITALS: BP 127/50; PULSE 75; RESP 18; TEMP 36.6
--- NOTE | 2018-01-15 11:17 | PCM.WC.PN ---
(1) Ulcer of right lower extremity with fat layer exposed Status: Chronic Current Visit: Yes Code(s): L97.912 - Non-pressure chronic ulcer of unspecified part of right lower leg with fat layer exposed (2) Type II diabetes mellitus Status: Chronic Current Visit: No Code(s): E11.9 - Type 2 diabetes mellitus without complications Type of Wound Chief Complaint: Right lower extremity ulcers. History of Wound: Ms. Rivera is a 72-year-old was in a stable state of health until couple weeks ago when she developed cellulitis with subsequent blistering of her right lower extremity. She was seen by primary care physician and started on antibiotics and was also recommended Darwin wraps. She subsequently developed 2 ulcers in the right lower extremity and again was seen by her primary care physician who advised continued wrapping. Ulcer persisted and she was subsequently referred to the wound center. Apart from wrapping wound they have not done any other treatments to the wound. She denies chills, fever or otherwise feeling of unwell. Progress of Wound: No new complaints at this time. Yet to follow-up with vascular surgery. - Physical Exam Vital Signs Temp Pulse Resp BP 97.9 F 75 18 127/50 H 01/15/18 08:44 01/15/18 08:44 01/15/18 08:44 01/15/18 08:44 General: Alert, Oriented x3, Cooperative, No apparent distress HEENT: Atraumatic Oral: Moist Mucosa Neck: Supple Lungs: Normal air movement Extremities: No cyanosis, Edema Skin: Ulcer/ Wound Wound Measurements and Assessment WC - Nurse 1 - General Ulcer Measurement Start: 12/25/17 12:19 Freq: Status: Active Protocol: Activity Type Activity Date Activity User E-Sign Co-Sign Detail Recorded Client Recorded Date Recorded By Document 01/15/18 08:44 RB [id number] 01/15/18 08:49 RB 01/15/18 08:44 Wound Center Nurse 1 [Ulcer Assessment] #2 RIGHT JONES -Combined with other wound No -Current Size (cm) - Length 6 -Current Size (cm) - Width 4 -Current Size (cm) - Depth 0.1 -Total Square Cm 24 -Photo Taken No -Tunneling No -Undermining/Tunneling No -Circular Undermining No -Exudate Amt Small (1-33%) -Exudate Type Serosanguineous -Wound Margin Distinct, Outline Attached -Granulation Amt Large (67-100%) -Granulation Quality [place] Red -Slough/Fibrin Yes -Necrosis Amt Small (1-33%) -Necrotic Tissue Type Adherent Slough -Structure Exposed N/A -Texture (Lilia-wound Skin Appearance) Assessed -Moisture (Lilia-wound Skin Appearance Assessed ) -Color (Lilia-wound Skin Appearance) Hemosiderin Staining -Temperature (Lilia-wound Skin No Abnormality Appearance) (Pt Warm) -Tenderness on Palpation (Lilia-wound No Skin Appearance) -Ulcer Cleansing Rinsed/ Irrigated with Saline -Foul Odor after Cleansing No -Anesthetic Used 4% Lidocaine Solution 5% Lidocaine Gel #1 RIGHT POST. CALF -Combined with other wound No -Current Size (cm) - Length 0.2 -Current Size (cm) - Width 0.3 -Current Size (cm) - Depth 0.1 -Total Square Cm 0.06 -Photo Taken No -Tunneling No -Undermining/Tunneling No -Circular Undermining No -Exudate Amt Small (1-33%) -Exudate Type Serosanguineous -Wound Margin Distinct, Outline Attached -Granulation Amt Small (1-33%) -Granulation Quality [place] -Slough/Fibrin Yes -Necrosis Amt Medium (34-66%) -Necrotic Tissue Type Adherent Slough -Structure Exposed N/A -Texture (Lilia-wound Skin Appearance) Assessed -Moisture (Lilia-wound Skin Appearance Assessed ) -Color (Lilia-wound Skin Appearance) Assessed -Temperature (Lilia-wound Skin No Abnormality Appearance) (Pt Warm) -Ulcer Cleansing Rinsed/ Irrigated with Saline -Anesthetic Used 4% Lidocaine Solution 5% Lidocaine Gel [Edema Assessment] -Lower Limb Edema Present Yes -Right Calf (cm) 37 -Right Ankle (cm) 22 WC - Nurse 2 - General Ulcer CM Notes Start: 12/25/17 12:19 Freq: Status: Active Protocol: Activity Type Activity Date Activity User E-Sign Co-Sign Detail Recorded Client Recorded Date Recorded By Document 01/15/18 09:05 MW [id number] 01/15/18 09:12 MW 01/15/18 09:05 Wound Center Nurse 2 [Procedure/Treatment] #2 RIGHT JONES -Time 09:05 -Correct Patient Yes -Correct Side, Site, Position Yes -Correct Procedure Yes -Procedure Performed Yes -Type of Procedure Debridement -Clinical Debridement Subcutaneous -Post Debridement Size (cm) - Length 5.7 -Post Debridement Size (cm) - Width 3.3 -Post Debridement Size (cm) - Depth 0.1 -Total Square Cm 18.81 -Wound/Ulcer Outcome Not Healed -Ulcer Cleansing Rinsed/ Irrigated with Saline -Foul Odor after Cleansing No -Bioengineered Tissue No -Bleeding Controlled with Pressure -Treatment Response Procedure Tolerated Well #1 RIGHT POST. CALF -Time 09:06 -Correct Patient Yes -Correct Side, Site, Position Yes -Correct Procedure Yes -Procedure Performed Yes -Type of Procedure Debridement -Clinical Debridement Subcutaneous -Post Debridement Size (cm) - Length 0.6 -Post Debridement Size (cm) - Width 0.5 -Post Debridement Size (cm) - Depth 0.1 -Total Square Cm 0.30 -Wound/Ulcer Outcome Not Healed -Ulcer Cleansing Rinsed/ Irrigated with Saline -Foul Odor after Cleansing No -Bioengineered Tissue No -Bleeding Controlled with Pressure -Treatment Response Procedure Tolerated Well [See Physician Procedure note for Specifics] Pain Scale: 0-10 Numeric [Pain] -Is Patient Pain Free? Yes Musculoskeletal: No Muscle Wasting Neurological: Cranial nerves II-XII grossly intact Psych/Mental Status: Normal Affect Debridement Note Post-Debridement Measurements/Treatment WC - Nurse 2 - General Ulcer CM Notes Start: 12/25/17 12:19 Freq: Status: Active Protocol: Activity Type Activity Date Activity User E-Sign Co-Sign Detail Recorded Client Recorded Date Recorded By Document 12/25/17 12:42 MW [id number] 12/25/17 12:47 MW Document 01/01/18 12:53 MW [id number] 01/01/18 13:02 MW Document 01/15/18 09:05 MW [id number] 01/15/18 09:12 MW 12/25/17 01/01/18 01/15/18 12:42 12:53 09:05 Wound Center Nurse 2 #2 RIGHT JONES -Time 12:44 12:53 09:05 -Correct Patient Yes Yes Yes -Correct Side, Site, Position Yes Yes Yes -Correct Procedure Yes Yes Yes -Procedure Performed Yes Yes Yes -Type of Procedure Debridement Debridement Debridement -Clinical Debridement Subcutaneous Subcutaneous Subcutaneous -Post Debridement Size (cm) - Length 8.0 7.0 5.7 -Post Debridement Size (cm) - Width 6.3 5.8 3.3 -Post Debridement Size (cm) - Depth 0.1 0.1 0.1 -Total Square Cm 50.40 40.60 18.81 -Wound/Ulcer Outcome Not Healed Not Healed Not Healed -Ulcer Cleansing Rinsed/ Rinsed/ Rinsed/ Irrigated with Irrigated with Irrigated with Saline Saline Saline -Foul Odor after Cleansing No No No -Bioengineered Tissue No No No -Bleeding Controlled with Pressure Pressure Pressure -Treatment Response Procedure Procedure Procedure Tolerated Well Tolerated Well Tolerated Well #1 RIGHT POST. CALF -Time 12:45 12:56 09:06 -Correct Patient Yes Yes Yes -Correct Side, Site, Position Yes Yes Yes -Correct Procedure Yes Yes Yes -Procedure Performed Yes Yes Yes -Type of Procedure Debridement Debridement Debridement -Clinical Debridement Subcutaneous Subcutaneous Subcutaneous -Post Debridement Size (cm) - Length 1.7 1.2 0.6 -Post Debridement Size (cm) - Width 2.0 1.3 0.5 -Post Debridement Size (cm) - Depth 0.1 0.1 0.1 -Total Square Cm 3.40 1.56 0.30 -Wound/Ulcer Outcome Not Healed Not Healed Not Healed -Ulcer Cleansing Rinsed/ Rinsed/ Rinsed/ Irrigated with Irrigated with Irrigated with Saline Saline Saline -Foul Odor after Cleansing No No No -Bioengineered Tissue No No No -Bleeding Controlled with Pressure Pressure Pressure -Treatment Response Procedure Procedure Procedure Tolerated Well Tolerated Well Tolerated Well Pain Scale: 0-10 Numeric Is Patient Pain Free? Yes Yes Yes Wound debrided: Right lower extremity anterior Wound Grade/Stage: Stage II Type of Debridement: Excisional debridement Anesthesia Used: 4% Lidocaine Solution Depth: Down to and including healthy tissue, in the subcutaneous layer Percentage of wound debrided: 100 Instrument Used: 7mm curette Tissue Removed: Slough and devitalized tissue Severity: Fat Layer Exposed Amount of bleeding with debridement: Mild Bleeding Controlled with: Pressure Patient tolerated procedure well - Additional Wound Wound debrided: Right lower extremity posterior Wound Grade/Stage: Stage II Type of Debridement: Excisional debridement Anesthesia Used: 4% Lidocaine Solution Depth: Down to and including healthy tissue, in the subcutaneous layer Percentage of wound debrided: 100 Instrument Used: 7mm curette Tissue Removed: Slough and devitalized tissue Severity: Fat Layer Exposed Amount of bleeding with debridement: Mild Bleeding Controlled with: Pressure Patient tolerated procedure: Patient tolerated procedure well Assessment/Plan Active Problems Ulcer of right lower extremity with fat layer exposed (Chronic) Assessment: Right anterior lower extremity ulcer with slightly exposed. Nonhealing. Right posterior lower extremity ulcer with fat layer exposed. Nonhealing. Type 2 diabetes mellitus. Plan: Both ulcers continue to show very good improvement. Debridement of both ulcers done as documented above. Procedure was well-tolerated. Continue Fibracol with Adaptic over top. Change daily. Continue Tubigrip's for edema management. Advised to elevate lower extremities when sitting and in bed. Increased protein intake also recommended. Avoid idle standing. Exercise and weight loss as tolerated. Optimal blood sugar control, follow-up with PCP. Referred to Dr. Carrizales for management of peripheral arterial disease. All her questions were answered and she was advised to call with any further questions or concerns. Follow-up in 1 week. This note was generated with [employer] dictation software. It may contain incorrect words, spelling, and punctuation that were not noted in checking the note before signing.
--- NOTE | 2018-01-15 11:20 | PN.PCM_ITS ---
(1) Ulcer of right lower extremity with fat layer exposed Status: Chronic Current Visit: Yes Code(s): L97.912 - Non-pressure chronic ulcer of unspecified part of right lower leg with fat layer exposed (2) Type II diabetes mellitus Status: Chronic Current Visit: No Code(s): E11.9 - Type 2 diabetes mellitus without complications Type of Wound Chief Complaint: Right lower extremity ulcers. History of Wound: Ms. Rivera is a 72-year-old was in a stable state of health until couple weeks ago when she developed cellulitis with subsequent blistering of her right lower extremity. She was seen by primary care physician and started on antibiotics and was also recommended Darwin wraps. She subsequently developed 2 ulcers in the right lower extremity and again was seen by her primary care physician who advised continued wrapping. Ulcer persisted and she was subsequently referred to the wound center. Apart from wrapping wound they have not done any other treatments to the wound. She denies chills, fever or otherwise feeling of unwell. Progress of Wound: No new complaints at this time. Yet to follow-up with vascular surgery. - Physical Exam Vital Signs Temp Pulse Resp BP 97.9 F 75 18 127/50 H 01/15/18 08:44 01/15/18 08:44 01/15/18 08:44 01/15/18 08:44 General: Alert, Oriented x3, Cooperative, No apparent distress HEENT: Atraumatic Oral: Moist Mucosa Neck: Supple Lungs: Normal air movement Extremities: No cyanosis, Edema Skin: Ulcer/ Wound Wound Measurements and Assessment WC - Nurse 1 - General Ulcer Measurement Start: 12/25/17 12:19 Freq: Status: Active Protocol: Activity Type Activity Date Activity User E-Sign Co-Sign Detail Recorded Client Recorded Date Recorded By Document 01/15/18 08:44 RB [id number] 01/15/18 08:49 RB 01/15/18 08:44 Wound Center Nurse 1 [Ulcer Assessment] #2 RIGHT JONES -Combined with other wound No -Current Size (cm) - Length 6 -Current Size (cm) - Width 4 -Current Size (cm) - Depth 0.1 -Total Square Cm 24 -Photo Taken No -Tunneling No -Undermining/Tunneling No -Circular Undermining No -Exudate Amt Small (1-33%) -Exudate Type Serosanguineous -Wound Margin Distinct, Outline Attached -Granulation Amt Large (67-100%) -Granulation Quality [place] Red -Slough/Fibrin Yes -Necrosis Amt Small (1-33%) -Necrotic Tissue Type Adherent Slough -Structure Exposed N/A -Texture (Lilia-wound Skin Appearance) Assessed -Moisture (Lilia-wound Skin Appearance Assessed ) -Color (Lilia-wound Skin Appearance) Hemosiderin Staining -Temperature (Lilia-wound Skin No Abnormality Appearance) (Pt Warm) -Tenderness on Palpation (Lilia-wound No Skin Appearance) -Ulcer Cleansing Rinsed/ Irrigated with Saline -Foul Odor after Cleansing No -Anesthetic Used 4% Lidocaine Solution 5% Lidocaine Gel #1 RIGHT POST. CALF -Combined with other wound No -Current Size (cm) - Length 0.2 -Current Size (cm) - Width 0.3 -Current Size (cm) - Depth 0.1 -Total Square Cm 0.06 -Photo Taken No -Tunneling No -Undermining/Tunneling No -Circular Undermining No -Exudate Amt Small (1-33%) -Exudate Type Serosanguineous -Wound Margin Distinct, Outline Attached -Granulation Amt Small (1-33%) -Granulation Quality [place] -Slough/Fibrin Yes -Necrosis Amt Medium (34-66%) -Necrotic Tissue Type Adherent Slough -Structure Exposed N/A -Texture (Lilia-wound Skin Appearance) Assessed -Moisture (Lilia-wound Skin Appearance Assessed ) -Color (Lilia-wound Skin Appearance) Assessed -Temperature (Lilia-wound Skin No Abnormality Appearance) (Pt Warm) -Ulcer Cleansing Rinsed/ Irrigated with Saline -Anesthetic Used 4% Lidocaine Solution 5% Lidocaine Gel [Edema Assessment] -Lower Limb Edema Present Yes -Right Calf (cm) 37 -Right Ankle (cm) 22 WC - Nurse 2 - General Ulcer CM Notes Start: 12/25/17 12:19 Freq: Status: Active Protocol: Activity Type Activity Date Activity User E-Sign Co-Sign Detail Recorded Client Recorded Date Recorded By Document 01/15/18 09:05 MW [id number] 01/15/18 09:12 MW 01/15/18 09:05 Wound Center Nurse 2 [Procedure/Treatment] #2 RIGHT JONES -Time 09:05 -Correct Patient Yes -Correct Side, Site, Position Yes -Correct Procedure Yes -Procedure Performed Yes -Type of Procedure Debridement -Clinical Debridement Subcutaneous -Post Debridement Size (cm) - Length 5.7 -Post Debridement Size (cm) - Width 3.3 -Post Debridement Size (cm) - Depth 0.1 -Total Square Cm 18.81 -Wound/Ulcer Outcome Not Healed -Ulcer Cleansing Rinsed/ Irrigated with Saline -Foul Odor after Cleansing No -Bioengineered Tissue No -Bleeding Controlled with Pressure -Treatment Response Procedure Tolerated Well #1 RIGHT POST. CALF -Time 09:06 -Correct Patient Yes -Correct Side, Site, Position Yes -Correct Procedure Yes -Procedure Performed Yes -Type of Procedure Debridement -Clinical Debridement Subcutaneous -Post Debridement Size (cm) - Length 0.6 -Post Debridement Size (cm) - Width 0.5 -Post Debridement Size (cm) - Depth 0.1 -Total Square Cm 0.30 -Wound/Ulcer Outcome Not Healed -Ulcer Cleansing Rinsed/ Irrigated with Saline -Foul Odor after Cleansing No -Bioengineered Tissue No -Bleeding Controlled with Pressure -Treatment Response Procedure Tolerated Well [See Physician Procedure note for Specifics] Pain Scale: 0-10 Numeric [Pain] -Is Patient Pain Free? Yes Musculoskeletal: No Muscle Wasting Neurological: Cranial nerves II-XII grossly intact Psych/Mental Status: Normal Affect Debridement Note Post-Debridement Measurements/Treatment WC - Nurse 2 - General Ulcer CM Notes Start: 12/25/17 12:19 Freq: Status: Active Protocol: Activity Type Activity Date Activity User E-Sign Co-Sign Detail Recorded Client Recorded Date Recorded By Document 12/25/17 12:42 MW [id number] 12/25/17 12:47 MW Document 01/01/18 12:53 MW [id number] 01/01/18 13:02 MW Document 01/15/18 09:05 MW [id number] 01/15/18 09:12 MW 12/25/17 01/01/18 01/15/18 12:42 12:53 09:05 Wound Center Nurse 2 #2 RIGHT JONES -Time 12:44 12:53 09:05 -Correct Patient Yes Yes Yes -Correct Side, Site, Position Yes Yes Yes -Correct Procedure Yes Yes Yes -Procedure Performed Yes Yes Yes -Type of Procedure Debridement Debridement Debridement -Clinical Debridement Subcutaneous Subcutaneous Subcutaneous -Post Debridement Size (cm) - Length 8.0 7.0 5.7 -Post Debridement Size (cm) - Width 6.3 5.8 3.3 -Post Debridement Size (cm) - Depth 0.1 0.1 0.1 -Total Square Cm 50.40 40.60 18.81 -Wound/Ulcer Outcome Not Healed Not Healed Not Healed -Ulcer Cleansing Rinsed/ Rinsed/ Rinsed/ Irrigated with Irrigated with Irrigated with Saline Saline Saline -Foul Odor after Cleansing No No No -Bioengineered Tissue No No No -Bleeding Controlled with Pressure Pressure Pressure -Treatment Response Procedure Procedure Procedure Tolerated Well Tolerated Well Tolerated Well #1 RIGHT POST. CALF -Time 12:45 12:56 09:06 -Correct Patient Yes Yes Yes -Correct Side, Site, Position Yes Yes Yes -Correct Procedure Yes Yes Yes -Procedure Performed Yes Yes Yes -Type of Procedure Debridement Debridement Debridement -Clinical Debridement Subcutaneous Subcutaneous Subcutaneous -Post Debridement Size (cm) - Length 1.7 1.2 0.6 -Post Debridement Size (cm) - Width 2.0 1.3 0.5 -Post Debridement Size (cm) - Depth 0.1 0.1 0.1 -Total Square Cm 3.40 1.56 0.30 -Wound/Ulcer Outcome Not Healed Not Healed Not Healed -Ulcer Cleansing Rinsed/ Rinsed/ Rinsed/ Irrigated with Irrigated with Irrigated with Saline Saline Saline -Foul Odor after Cleansing No No No -Bioengineered Tissue No No No -Bleeding Controlled with Pressure Pressure Pressure -Treatment Response Procedure Procedure Procedure Tolerated Well Tolerated Well Tolerated Well Pain Scale: 0-10 Numeric Is Patient Pain Free? Yes Yes Yes Wound debrided: Right lower extremity anterior Wound Grade/Stage: Stage II Type of Debridement: Excisional debridement Anesthesia Used: 4% Lidocaine Solution Depth: Down to and including healthy tissue, in the subcutaneous layer Percentage of wound debrided: 100 Instrument Used: 7mm curette Tissue Removed: Slough and devitalized tissue Severity: Fat Layer Exposed Amount of bleeding with debridement: Mild Bleeding Controlled with: Pressure Patient tolerated procedure well - Additional Wound Wound debrided: Right lower extremity posterior Wound Grade/Stage: Stage II Type of Debridement: Excisional debridement Anesthesia Used: 4% Lidocaine Solution Depth: Down to and including healthy tissue, in the subcutaneous layer Percentage of wound debrided: 100 Instrument Used: 7mm curette Tissue Removed: Slough and devitalized tissue Severity: Fat Layer Exposed Amount of bleeding with debridement: Mild Bleeding Controlled with: Pressure Patient tolerated procedure: Patient tolerated procedure well Assessment/Plan Active Problems Ulcer of right lower extremity with fat layer exposed (Chronic) Assessment: Right anterior lower extremity ulcer with slightly exposed. Nonhealing. Right posterior lower extremity ulcer with fat layer exposed. Nonhealing. Type 2 diabetes mellitus. Plan: Both ulcers continue to show very good improvement. Debridement of both ulcers done as documented above. Procedure was well-tolerated. Continue Fibracol with Adaptic over top. Change daily. Continue Tubigrip's for edema management. Advised to elevate lower extremities when sitting and in bed. Increased protein intake also recommended. Avoid idle standing. Exercise and weight loss as tolerated. Optimal blood sugar control, follow-up with PCP. Referred to Dr. Carrizales for management of peripheral arterial disease. All her questions were answered and she was advised to call with any further questions or concerns. Follow-up in 1 week. This note was generated with [employer] dictation software. It may contain incorrect words, spelling, and punctuation that were not noted in checking the note before signing.
== END 2018-01-21 23:59 ==
LOC: WC 08:30
PROVIDERS: Family Provider Family Medicine; PCP Family Medicine; Referring Provider Internal Medicine; Visit Provider Internal Medicine
DX: E11.622 Type 2 diabetes mellitus with other skin ulcer (principal); L97.812 Non-pressure chronic ulcer of other part of right lower leg with fat layer exposed; E11.51 Type 2 diabetes mellitus with diabetic peripheral angiopathy without gangrene
CPT/HCPCS: 11042; 11045; 87070; 87075; 87077; 87186; 87205; 93923; 99212; G0463

== ENCOUNTER 2018-02-11 10:15 | Outpatient (RCR) | payer MEDICARE, SELFPAY ==
[2018-01-22 01:46] VITALS: BP 127/50; PULSE 75; RESP 18; TEMP 36.6
[2018-01-22 11:00] VITALS: BP 123/64; PULSE 78; RESP 18; TEMP 35.9
--- NOTE | 2018-01-22 12:06 | PN.PCM_ITS ---
(1) Type II diabetes mellitus Status: Chronic Current Visit: No Code(s): E11.9 - Type 2 diabetes mellitus without complications (2) Ulcer of right lower extremity with fat layer exposed Status: Chronic Current Visit: No Code(s): L97.912 - Non-pressure chronic ulcer of unspecified part of right lower leg with fat layer exposed (3) Peripheral arterial disease Status: Acute Current Visit: Yes Code(s): I73.9 - Peripheral vascular disease, unspecified Type of Wound Chief Complaint: Right lower extremity ulcers. History of Wound: Ms. Rivera is a 72-year-old was in a stable state of health until couple weeks ago when she developed cellulitis with subsequent blistering of her right lower extremity. She was seen by primary care physician and started on antibiotics and was also recommended Darwin wraps. She subsequently developed 2 ulcers in the right lower extremity and again was seen by her primary care physician who advised continued wrapping. Ulcer persisted and she was subsequently referred to the wound center. Apart from wrapping wound they have not done any other treatments to the wound. She denies chills, fever or otherwise feeling of unwell. Progress of Wound: Improving. - Physical Exam Vital Signs Temp Pulse Resp BP 96.7 F L 78 18 123/64 H 01/22/18 11:00 01/22/18 11:00 01/22/18 11:00 01/22/18 11:00 General: Alert, Oriented x3, Cooperative, No apparent distress HEENT: Atraumatic Oral: Moist Mucosa Neck: Supple Lungs: Normal air movement Extremities: No cyanosis, Edema Skin: Ulcer/ Wound Wound Measurements and Assessment WC - Nurse 1 - General Ulcer Measurement Start: 01/22/18 11:00 Freq: Status: Active Protocol: Activity Type Activity Date Activity User E-Sign Co-Sign Detail Recorded Client Recorded Date Recorded By Document 01/22/18 11:00 DL [id number] 01/22/18 11:12 DL 01/22/18 11:00 Wound Center Nurse 1 [Ulcer Assessment] #2 RIGHT JONES -Current Size (cm) - Length 5 -Current Size (cm) - Width 3.1 -Current Size (cm) - Depth 0.1 -Total Square Cm 15.5 -Photo Taken No -Exudate Amt Small (1-33%) -Exudate Type Serosanguineous -Wound Margin Distinct, Outline Attached -Granulation Amt Large (67-100%) -Granulation Quality Red -Necrosis Amt Small (1-33%) -Necrotic Tissue Type Adherent Slough -Texture (Lilia-wound Skin Appearance) Scarring -Moisture (Lilia-wound Skin Appearance Dry/Scaly ) -Color (Lilia-wound Skin Appearance) Hemosiderin Staining -Temperature (Lilia-wound Skin No Abnormality Appearance) (Pt Warm) -Tenderness on Palpation (Lilia-wound No Skin Appearance) -Ulcer Cleansing Rinsed/ Irrigated with Saline -Foul Odor after Cleansing No -Anesthetic Used 4% Lidocaine Solution 5% Lidocaine Gel #1 RIGHT POST. CALF -Current Size (cm) - Length 0.3 -Current Size (cm) - Width 0.3 -Current Size (cm) - Depth 0.1 -Total Square Cm 0.09 -Photo Taken No -Exudate Amt None Present (0 %) -Wound Margin Flat & Intact -Granulation Amt Small (1-33%) -Granulation Quality [place] -Necrosis Amt Small (1-33%) -Necrotic Tissue Type Eschar -Structure Exposed N/A -Texture (Lilia-wound Skin Appearance) Scarring -Moisture (Lilia-wound Skin Appearance No Abnormality ) -Color (Lilia-wound Skin Appearance) Hemosiderin Staining -Temperature (Lilia-wound Skin No Abnormality Appearance) (Pt Warm) -Tenderness on Palpation (Lilia-wound No Skin Appearance) -Ulcer Cleansing Rinsed/ Irrigated with Saline -Foul Odor after Cleansing No -Anesthetic Used 4% Lidocaine Solution [Edema Assessment] -Right Calf (cm) 34.6 -Right Ankle (cm) 20.8 WC - Nurse 2 - General Ulcer CM Notes Start: 01/22/18 11:00 Freq: Status: Active Protocol: Activity Type Activity Date Activity User E-Sign Co-Sign Detail Recorded Client Recorded Date Recorded By Document 01/22/18 11:21 MW [id number] 01/22/18 11:25 MW 01/22/18 11:21 Wound Center Nurse 2 [Procedure/Treatment] #2 RIGHT JONES -Time 11:21 -Correct Patient Yes -Correct Side, Site, Position Yes -Correct Procedure Yes -Procedure Performed Yes -Type of Procedure Debridement -Clinical Debridement Subcutaneous -Post Debridement Size (cm) - Length 5.0 -Post Debridement Size (cm) - Width 2.7 -Post Debridement Size (cm) - Depth 0.1 -Total Square Cm 13.50 -Wound/Ulcer Outcome Not Healed -Ulcer Cleansing Rinsed/ Irrigated with Saline -Foul Odor after Cleansing No -Bioengineered Tissue No -Bleeding Controlled with Pressure -Treatment Response Procedure Tolerated Well #1 RIGHT POST. CALF -Time 11:22 -Correct Patient Yes -Correct Side, Site, Position Yes -Correct Procedure Yes -Procedure Performed Yes -Type of Procedure Debridement -Clinical Debridement Subcutaneous -Post Debridement Size (cm) - Length 0.1 -Post Debridement Size (cm) - Width 0.1 -Post Debridement Size (cm) - Depth 0.1 -Total Square Cm 0.01 -Wound/Ulcer Outcome Not Healed -Ulcer Cleansing Rinsed/ Irrigated with Saline -Foul Odor after Cleansing No -Bioengineered Tissue No -Bleeding Controlled with Pressure -Treatment Response Procedure Tolerated Well [See Physician Procedure note for Specifics] Pain Scale: 0-10 Numeric [Pain] -Is Patient Pain Free? Yes Musculoskeletal: No Muscle Wasting Neurological: Cranial nerves II-XII grossly intact Psych/Mental Status: Normal Affect Debridement Note Post-Debridement Measurements/Treatment WC - Nurse 2 - General Ulcer CM Notes Start: 01/22/18 11:00 Freq: Status: Active Protocol: Activity Type Activity Date Activity User E-Sign Co-Sign Detail Recorded Client Recorded Date Recorded By Document 01/22/18 11:21 MW [id number] 01/22/18 11:25 MW 01/22/18 11:21 Wound Center Nurse 2 #2 RIGHT JONES -Time 11:21 -Correct Patient Yes -Correct Side, Site, Position Yes -Correct Procedure Yes -Procedure Performed Yes -Type of Procedure Debridement -Clinical Debridement Subcutaneous -Post Debridement Size (cm) - Length 5.0 -Post Debridement Size (cm) - Width 2.7 -Post Debridement Size (cm) - Depth 0.1 -Total Square Cm 13.50 -Wound/Ulcer Outcome Not Healed -Ulcer Cleansing Rinsed/ Irrigated with Saline -Foul Odor after Cleansing No -Bioengineered Tissue No -Bleeding Controlled with Pressure -Treatment Response Procedure Tolerated Well #1 RIGHT POST. CALF -Time 11:22 -Correct Patient Yes -Correct Side, Site, Position Yes -Correct Procedure Yes -Procedure Performed Yes -Type of Procedure Debridement -Clinical Debridement Subcutaneous -Post Debridement Size (cm) - Length 0.1 -Post Debridement Size (cm) - Width 0.1 -Post Debridement Size (cm) - Depth 0.1 -Total Square Cm 0.01 -Wound/Ulcer Outcome Not Healed -Ulcer Cleansing Rinsed/ Irrigated with Saline -Foul Odor after Cleansing No -Bioengineered Tissue No -Bleeding Controlled with Pressure -Treatment Response Procedure Tolerated Well Pain Scale: 0-10 Numeric Is Patient Pain Free? Yes Wound debrided: Right lower extremity anterior Wound Grade/Stage: Stage II Type of Debridement: Excisional debridement Anesthesia Used: 4% Lidocaine Solution Depth: Down to and including healthy tissue, in the subcutaneous layer Percentage of wound debrided: 100 Instrument Used: 7mm curette Tissue Removed: Slough and devitalized tissue Severity: Fat Layer Exposed Amount of bleeding with debridement: Mild Bleeding Controlled with: Pressure Patient tolerated procedure well - Additional Wound Wound debrided: Right lower extremity posterior Wound Grade/Stage: Stage II Type of Debridement: Excisional debridement Anesthesia Used: 4% Lidocaine Solution Depth: Down to and including healthy tissue, in the subcutaneous layer Percentage of wound debrided: 100 Instrument Used: 7mm curette Tissue Removed: Slough and devitalized tissue Severity: Fat Layer Exposed Amount of bleeding with debridement: Mild Bleeding Controlled with: Pressure Patient tolerated procedure: Patient tolerated procedure well Assessment/Plan Active Problems Peripheral arterial disease (Acute) Assessment: Right anterior lower extremity ulcer with slightly exposed. Nonhealing. Right posterior lower extremity ulcer with fat layer exposed. Nonhealing. Type 2 diabetes mellitus. Plan: Both ulcers continue to show very good improvement. Debridement of both ulcers done as documented above. Procedure was well-tolerated. Continue Fibracol with Adaptic over top. Change daily. Continue Tubigrip's for edema management. Advised to elevate lower extremities when sitting and in bed. Increased protein intake also recommended. Avoid idle standing. Exercise and weight loss as tolerated. Optimal blood sugar control, follow-up with PCP. Referred to Dr. Carrizales for management of peripheral arterial disease. Yet to see. All her questions were answered and she was advised to call with any further questions or concerns. Follow-up in 1 week. This note was generated with [employer] software. It may contain incorrect words, spelling, and punctuation that were not noted in checking the note before signing.
[2018-01-29 10:58] VITALS: BP 106/48; PULSE 58; RESP 16; TEMP 36.7
--- NOTE | 2018-01-29 11:26 | PN.PCM_ITS ---
(1) Type II diabetes mellitus Status: Chronic Current Visit: No Code(s): E11.9 - Type 2 diabetes mellitus without complications (2) Ulcer of right lower extremity with fat layer exposed Status: Chronic Current Visit: No Code(s): L97.912 - Non-pressure chronic ulcer of unspecified part of right lower leg with fat layer exposed (3) Peripheral arterial disease Status: Acute Current Visit: Yes Code(s): I73.9 - Peripheral vascular disease, unspecified Type of Wound Chief Complaint: Right lower extremity ulcers. History of Wound: Ms. Rivera is a 72-year-old was in a stable state of health until couple weeks ago when she developed cellulitis with subsequent blistering of her right lower extremity. She was seen by primary care physician and started on antibiotics and was also recommended Darwin wraps. She subsequently developed 2 ulcers in the right lower extremity and again was seen by her primary care physician who advised continued wrapping. Ulcer persisted and she was subsequently referred to the wound center. Apart from wrapping wound they have not done any other treatments to the wound. She denies chills, fever or otherwise feeling of unwell. Progress of Wound: Improving. - Physical Exam Vital Signs Temp Pulse Resp BP 98.0 F 58 L 16 106/48 L 01/29/18 10:58 01/29/18 10:58 01/29/18 10:58 01/29/18 10:58 General: Alert, Oriented x3, Cooperative, No apparent distress HEENT: Atraumatic Oral: Moist Mucosa Neck: Supple Lungs: Normal air movement Extremities: No cyanosis Skin: Ulcer/ Wound Wound Measurements and Assessment WC - Nurse 1 - General Ulcer Measurement Start: 01/22/18 11:00 Freq: Status: Active Protocol: Activity Type Activity Date Activity User E-Sign Co-Sign Detail Recorded Client Recorded Date Recorded By Document 01/29/18 10:58 [id number] 01/29/18 11:08 01/29/18 10:58 Wound Center Nurse 1 [Ulcer Assessment] #2 RIGHT ABERNATHY -Combined with other wound No -Current Size (cm) - Length 4.3 -Current Size (cm) - Width 3.0 -Current Size (cm) - Depth 0.1 -Total Square Cm 12.90 -Date of Last Picture (Recall this 01/29/18 field) -Photo Taken Yes -Epithelialization Medium 34-66% -Tunneling No -Undermining/Tunneling No -Circular Undermining No -Exudate Amt Medium (34-66%) -Exudate Type Serosanguineous -Wound Margin Distinct, Outline Attached -Granulation Amt Large (67-100%) -Granulation Quality Red -Slough/Fibrin Yes -Necrosis Amt Small (1-33%) -Necrotic Tissue Type Adherent Slough -Texture (Lilia-wound Skin Appearance) Assessed Scarring -Moisture (Lilia-wound Skin Appearance No Abnormality ) Assessed -Color (Lilia-wound Skin Appearance) No Abnormality Assessed -Temperature (Lilia-wound Skin No Abnormality Appearance) (Pt Warm) -Tenderness on Palpation (Lilia-wound No Skin Appearance) -Ulcer Cleansing Rinsed/ Irrigated with Saline -Foul Odor after Cleansing No -Anesthetic Used 4% Lidocaine Solution [Edema Assessment] -Right Calf (cm) 38 -Right Ankle (cm) 23 WC - Nurse 2 - General Ulcer CM Notes Start: 01/22/18 11:00 Freq: Status: Active Protocol: Activity Type Activity Date Activity User E-Sign Co-Sign Detail Recorded Client Recorded Date Recorded By Document 01/29/18 11:19 MW [id number] 01/29/18 11:22 MW 01/29/18 11:19 Wound Center Nurse 2 [Procedure/Treatment] #2 RIGHT ABERNATHY -Time 11:20 -Correct Patient Yes -Correct Side, Site, Position Yes -Correct Procedure Yes -Procedure Performed Yes -Type of Procedure Debridement -Clinical Debridement Subcutaneous -Post Debridement Size (cm) - Length 4.2 -Post Debridement Size (cm) - Width 3.0 -Post Debridement Size (cm) - Depth 0.1 -Total Square Cm 12.60 -Wound/Ulcer Outcome Not Healed -Ulcer Cleansing Rinsed/ Irrigated with Saline -Foul Odor after Cleansing No -Bioengineered Tissue No -Bleeding Controlled with Pressure -Treatment Response Procedure Tolerated Well #1 RIGHT POST. CALF -Time 11:20 -Correct Patient Yes -Correct Side, Site, Position Yes -Correct Procedure Yes -Procedure Performed Yes -Type of Procedure Debridement -Clinical Debridement Selective -Post Debridement Size (cm) - Length 0.1 -Post Debridement Size (cm) - Width 0.1 -Post Debridement Size (cm) - Depth 0.1 -Total Square Cm 0.01 -Wound/Ulcer Outcome Not Healed -Ulcer Cleansing Rinsed/ Irrigated with Saline -Foul Odor after Cleansing No -Bioengineered Tissue No -Bleeding Controlled with Pressure -Treatment Response Procedure Tolerated Well [See Physician Procedure note for Specifics] Pain Scale: 0-10 Numeric [Pain] -Is Patient Pain Free? Yes Musculoskeletal: No Muscle Wasting Neurological: Cranial nerves II-XII grossly intact Psych/Mental Status: Normal Affect Debridement Note Post-Debridement Measurements/Treatment WC - Nurse 2 - General Ulcer CM Notes Start: 01/22/18 11:00 Freq: Status: Active Protocol: Activity Type Activity Date Activity User E-Sign Co-Sign Detail Recorded Client Recorded Date Recorded By Document 01/22/18 11:21 MW [id number] 01/22/18 11:25 MW Document 01/29/18 11:19 MW [id number] 01/29/18 11:22 MW 01/22/18 01/29/18 11:21 11:19 Wound Center Nurse 2 #2 RIGHT ABERNATHY -Time 11:21 11:20 -Correct Patient Yes Yes -Correct Side, Site, Position Yes Yes -Correct Procedure Yes Yes -Procedure Performed Yes Yes -Type of Procedure Debridement Debridement -Clinical Debridement Subcutaneous Subcutaneous -Post Debridement Size (cm) - Length 5.0 4.2 -Post Debridement Size (cm) - Width 2.7 3.0 -Post Debridement Size (cm) - Depth 0.1 0.1 -Total Square Cm 13.50 12.60 -Wound/Ulcer Outcome Not Healed Not Healed -Ulcer Cleansing Rinsed/ Rinsed/ Irrigated with Irrigated with Saline Saline -Foul Odor after Cleansing No No -Bioengineered Tissue No No -Bleeding Controlled with Pressure Pressure -Treatment Response Procedure Procedure Tolerated Well Tolerated Well #1 RIGHT POST. CALF -Time 11:22 11:20 -Correct Patient Yes Yes -Correct Side, Site, Position Yes Yes -Correct Procedure Yes Yes -Procedure Performed Yes Yes -Type of Procedure Debridement Debridement -Clinical Debridement Subcutaneous Selective -Post Debridement Size (cm) - Length 0.1 0.1 -Post Debridement Size (cm) - Width 0.1 0.1 -Post Debridement Size (cm) - Depth 0.1 0.1 -Total Square Cm 0.01 0.01 -Wound/Ulcer Outcome Not Healed Not Healed -Ulcer Cleansing Rinsed/ Rinsed/ Irrigated with Irrigated with Saline Saline -Foul Odor after Cleansing No No -Bioengineered Tissue No No -Bleeding Controlled with Pressure Pressure -Treatment Response Procedure Procedure Tolerated Well Tolerated Well Pain Scale: 0-10 Numeric Is Patient Pain Free? Yes Yes Wound debrided: Right lower extremity posterior Wound Grade/Stage: Stage II Type of Debridement: Selective debridement Anesthesia Used: 4% Lidocaine Solution Depth: Down to and including healthy tissue Percentage of wound debrided: 100 Instrument Used: 3mm curette Tissue Removed: Devitalized tissue Severity: Limited To Skin Breakdown Amount of bleeding with debridement: Mild Bleeding Controlled with: Pressure Patient tolerated procedure well - Additional Wound Wound debrided: Right lower extremity abernathy Wound Grade/Stage: Stage II Type of Debridement: Excisional debridement Anesthesia Used: 4% Lidocaine Solution Depth: Down to and including healthy tissue, in the subcutaneous layer Percentage of wound debrided: 100 Instrument Used: 3mm curette Tissue Removed: Slough and devitalized tissue Severity: Fat Layer Exposed Amount of bleeding with debridement: Mild Bleeding Controlled with: Pressure Patient tolerated procedure: Patient tolerated procedure well Assessment/Plan Active Problems Peripheral arterial disease (Acute) Assessment: Right anterior lower extremity ulcer with slightly exposed. Nonhealing. Right posterior lower extremity ulcer with fat layer exposed. Nonhealing. Type 2 diabetes mellitus. Plan: Both ulcers continue to show very good improvement. Debridement of both ulcers done as documented above. Procedure was well-tolerated. Continue Fibra col with Adaptic over top. Change daily. Continue Tubigrip's for edema management. Advised to elevate lower extremities when sitting and in bed. Increased protein intake also recommended. Avoid idle standing. Exercise and weight loss as tolerated. Optimal blood sugar control, follow-up with PCP. Referred to Dr. Carrizales for management of peripheral arterial disease. First visit scheduled for February. All her questions were answered and she was advised to call with any further questions or concerns. Follow-up in 2 weeks due to family constraints. This note was generated with [employer] dictation software. It may contain incorrect words, spelling, and punctuation that were not noted in checking the note before signing.
[2018-02-11 10:56] VITALS: BP 141/64; PULSE 79; RESP 16; TEMP 36.3
--- NOTE | 2018-02-11 12:28 | PN.PCM_ITS ---
(1) Type II diabetes mellitus Status: Chronic Current Visit: No Code(s): E11.9 - Type 2 diabetes mellitus without complications (2) Ulcer of right lower extremity with fat layer exposed Status: Chronic Current Visit: No Code(s): L97.912 - Non-pressure chronic ulcer of unspecified part of right lower leg with fat layer exposed (3) Peripheral arterial disease Status: Acute Current Visit: Yes Code(s): I73.9 - Peripheral vascular disease, unspecified Type of Wound Chief Complaint: Right lower extremity ulcers. History of Wound: Ms. Rivera is a 72-year-old was in a stable state of health until couple weeks ago when she developed cellulitis with subsequent blistering of her right lower extremity. She was seen by primary care physician and started on antibiotics and was also recommended Darwin wraps. She subsequently developed 2 ulcers in the right lower extremity and again was seen by her primary care physician who advised continued wrapping. Ulcer persisted and she was subsequently referred to the wound center. Apart from wrapping wound they have not done any other treatments to the wound. She denies chills, fever or otherwise feeling of unwell. Progress of Wound: Improving. - Physical Exam Vital Signs Temp Pulse Resp BP 97.3 F L 79 16 141/64 H 02/11/18 10:56 02/11/18 10:56 02/11/18 10:56 02/11/18 10:56 General: Alert, Oriented x3, Cooperative, No apparent distress HEENT: Atraumatic, Normocephalic Oral: Moist Mucosa Neck: Supple Lungs: Normal air movement Abdomen: Non Tender Extremities: No cyanosis Skin: Ulcer/ Wound Wound Measurements and Assessment WC - Nurse 1 - General Ulcer Measurement Start: 01/22/18 11:00 Freq: Status: Active Protocol: Activity Type Activity Date Activity User E-Sign Co-Sign Detail Recorded Client Recorded Date Recorded By Document 02/11/18 10:56 [facility] [id number] 02/11/18 11:02 [facility] 02/11/18 10:56 Wound Center Nurse 1 [Ulcer Assessment] #2 RIGHT JONES -Combined with other wound No -Current Size (cm) - Length 3.6 -Current Size (cm) - Width 2.0 -Current Size (cm) - Depth 0.1 -Total Square Cm 7.20 -Photo Taken No -Epithelialization Small 1-33% -Tunneling No -Undermining/Tunneling No -Circular Undermining No -Exudate Amt Small (1-33%) -Exudate Type Serosanguineous -Wound Margin Distinct, Outline Attached -Granulation Amt Large (67-100%) -Granulation Quality Pale Red -Slough/Fibrin Yes -Necrosis Amt Small (1-33%) -Necrotic Tissue Type Adherent Slough -Texture (Lilia-wound Skin Appearance) Scarring -Moisture (Lilia-wound Skin Appearance Dry/Scaly ) -Color (Lilia-wound Skin Appearance) Erythema -Temperature (Lilia-wound Skin No Abnormality Appearance) (Pt Warm) -Tenderness on Palpation (Lilia-wound No Skin Appearance) -Ulcer Cleansing Rinsed/ Irrigated with Saline -Foul Odor after Cleansing No -Anesthetic Used 4% Lidocaine Solution #1 RIGHT POST. CALF -Combined with other wound No -Current Size (cm) - Length 0.1 -Current Size (cm) - Width 0.1 -Current Size (cm) - Depth 0.1 -Total Square Cm 0.01 -Epithelialization Large 67-100% -Texture (Lilia-wound Skin Appearance) Scarring -Moisture (Lilia-wound Skin Appearance Dry/Scaly ) -Color (Lilia-wound Skin Appearance) Assessed -Temperature (Lilia-wound Skin No Abnormality Appearance) (Pt Warm) -Tenderness on Palpation (Lilia-wound No Skin Appearance) -Ulcer Cleansing Rinsed/ Irrigated with Saline -Foul Odor after Cleansing No -Anesthetic Used 4% Lidocaine Solution [Edema Assessment] -Lower Limb Edema Present Yes -Right Calf (cm) 34.5 -Right Ankle (cm) 21 WC - Nurse 2 - General Ulcer CM Notes Start: 01/22/18 11:00 Freq: Status: Active Protocol: Activity Type Activity Date Activity User E-Sign Co-Sign Detail Recorded Client Recorded Date Recorded By Document 02/11/18 11:10 MW [id number] 02/11/18 11:16 MW 02/11/18 11:10 Wound Center Nurse 2 [Procedure/Treatment] #2 RIGHT JONES -Time 11:11 -Correct Patient Yes -Correct Side, Site, Position Yes -Correct Procedure Yes -Procedure Performed Yes -Type of Procedure Debridement -Clinical Debridement Subcutaneous -Post Debridement Size (cm) - Length 3.6 -Post Debridement Size (cm) - Width 2.0 -Post Debridement Size (cm) - Depth 0.1 -Total Square Cm 7.20 -Wound/Ulcer Outcome Not Healed -Ulcer Cleansing Rinsed/ Irrigated with Saline -Foul Odor after Cleansing No -Bioengineered Tissue No -Bleeding Controlled with Pressure -Treatment Response Procedure Tolerated Well #1 RIGHT POST. CALF -Time 11:11 -Correct Patient Yes -Correct Side, Site, Position Yes -Correct Procedure Yes -Procedure Performed No -Post Debridement Size (cm) - Length 0 -Post Debridement Size (cm) - Width 0 -Post Debridement Size (cm) - Depth 0 -Total Square Cm 0 -Wound/Ulcer Outcome Healed- Epithelialized -Ulcer Cleansing Rinsed/ Irrigated with Saline -Foul Odor after Cleansing No -Bioengineered Tissue No -Bleeding Controlled with NA -Treatment Response Procedure Tolerated Well [See Physician Procedure note for Specifics] Pain Scale: 0-10 Numeric [Pain] -Is Patient Pain Free? Yes Musculoskeletal: No Muscle Wasting Neurological: Cranial nerves II-XII grossly intact Psych/Mental Status: Normal Affect Debridement Note Post-Debridement Measurements/Treatment WC - Nurse 2 - General Ulcer CM Notes Start: 01/22/18 11:00 Freq: Status: Active Protocol: Activity Type Activity Date Activity User E-Sign Co-Sign Detail Recorded Client Recorded Date Recorded By Document 01/22/18 11:21 MW [id number] 01/22/18 11:25 MW Document 01/29/18 11:19 MW [id number] 01/29/18 11:22 MW Document 02/11/18 11:10 MW [id number] 02/11/18 11:16 MW 01/22/18 01/29/18 02/11/18 11:21 11:19 11:10 Wound Center Nurse 2 #2 RIGHT JONES -Time 11:21 11:20 11:11 -Correct Patient Yes Yes Yes -Correct Side, Site, Position Yes Yes Yes -Correct Procedure Yes Yes Yes -Procedure Performed Yes Yes Yes -Type of Procedure Debridement Debridement Debridement -Clinical Debridement Subcutaneous Subcutaneous Subcutaneous -Post Debridement Size (cm) - Length 5.0 4.2 3.6 -Post Debridement Size (cm) - Width 2.7 3.0 2.0 -Post Debridement Size (cm) - Depth 0.1 0.1 0.1 -Total Square Cm 13.50 12.60 7.20 -Wound/Ulcer Outcome Not Healed Not Healed Not Healed -Ulcer Cleansing Rinsed/ Rinsed/ Rinsed/ Irrigated with Irrigated with Irrigated with Saline Saline Saline -Foul Odor after Cleansing No No No -Bioengineered Tissue No No No -Bleeding Controlled with Pressure Pressure Pressure -Treatment Response Procedure Procedure Procedure Tolerated Well Tolerated Well Tolerated Well #1 RIGHT POST. CALF -Time 11:22 11:20 11:11 -Correct Patient Yes Yes Yes -Correct Side, Site, Position Yes Yes Yes -Correct Procedure Yes Yes Yes -Procedure Performed Yes Yes No -Type of Procedure Debridement Debridement -Clinical Debridement Subcutaneous Selective -Post Debridement Size (cm) - Length 0.1 0.1 0 -Post Debridement Size (cm) - Width 0.1 0.1 0 -Post Debridement Size (cm) - Depth 0.1 0.1 0 -Total Square Cm 0.01 0.01 0 -Wound/Ulcer Outcome Not Healed Not Healed Healed- Epithelialized -Ulcer Cleansing Rinsed/ Rinsed/ Rinsed/ Irrigated with Irrigated with Irrigated with Saline Saline Saline -Foul Odor after Cleansing No No No -Bioengineered Tissue No No No -Bleeding Controlled with Pressure Pressure NA -Treatment Response Procedure Procedure Procedure Tolerated Well Tolerated Well Tolerated Well Pain Scale: 0-10 Numeric Is Patient Pain Free? Yes Yes Yes Wound debrided: Right lower extremity Wound Grade/Stage: Stage 2 Type of Debridement: Excisional debridement Anesthesia Used: 4% Lidocaine Solution Depth: Down to and including healthy tissue, in the subcutaneous layer Percentage of wound debrided: 100 Instrument Used: 3mm curette Tissue Removed: Slough and devitalized tissue Severity: Fat Layer Exposed Amount of bleeding with debridement: Mild Bleeding Controlled with: Pressure Patient tolerated procedure well Assessment/Plan Active Problems Peripheral arterial disease (Acute) Assessment: Right anterior lower extremity ulcer with slightly exposed. Nonhealing. Right posterior lower extremity ulcer with fat layer exposed. Nonhealing. Type 2 diabetes mellitus. Plan: Posterior ulcer has healed. Debridement done as documented above. Procedure was well-tolerated. Continue Fibracol with Adaptic over top. Change daily. Continue Tubigrip's for edema management. Advised to elevate lower extremities when sitting and in bed. Increased protein intake also recommended. Avoid idle standing. Exercise and weight loss as tolerated. Optimal blood sugar control, follow-up with PCP. Referred to Dr. Carrizales for management of peripheral arterial disease. First visit scheduled for February. All her questions were answered and she was advised to call with any further questions or concerns. Follow-up in 2 weeks due to family constraints. This note was generated with [employer] software. It may contain incorrect words, spelling, and punctuation that were not noted in checking the note before signing.
== END 2018-02-20 23:59 ==
LOC: WC 10:15
PROVIDERS: Family Provider Family Medicine; PCP Family Medicine; Referring Provider Internal Medicine; Visit Provider Internal Medicine
DX: E11.622 Type 2 diabetes mellitus with other skin ulcer (principal); L97.812 Non-pressure chronic ulcer of other part of right lower leg with fat layer exposed; E11.51 Type 2 diabetes mellitus with diabetic peripheral angiopathy without gangrene
CPT/HCPCS: 11042; 97597

== ENCOUNTER 2018-03-19 11:00 | Outpatient (RCR) | payer MEDICARE, SELFPAY ==
[2018-02-21 01:26] VITALS: BP 141/64; PULSE 79; RESP 16; TEMP 36.3
[2018-02-26 11:17] VITALS: BP 91/44; PULSE 80; RESP 18; TEMP 36.2
[2018-03-05 11:29] VITALS: BP 140/61; PULSE 80; RESP 18; TEMP 36.8
--- NOTE | 2018-03-05 11:53 | PCM.WC.PN ---
(1) Ulcer of right lower extremity with fat layer exposed Status: Chronic Current Visit: Yes Code(s): L97.912 - Non-pressure chronic ulcer of unspecified part of right lower leg with fat layer exposed (2) Peripheral arterial disease Status: Acute Current Visit: No Code(s): I73.9 - Peripheral vascular disease, unspecified (3) Type II diabetes mellitus Status: Chronic Current Visit: No Code(s): E11.9 - Type 2 diabetes mellitus without complications Type of Wound Chief Complaint: Right lower extremity ulcers. History of Wound: Ms. Rivera is a 72-year-old was in a stable state of health until couple weeks ago when she developed cellulitis with subsequent blistering of her right lower extremity. She was seen by primary care physician and started on antibiotics and was also recommended Darwin wraps. She subsequently developed 2 ulcers in the right lower extremity and again was seen by her primary care physician who advised continued wrapping. Ulcer persisted and she was subsequently referred to the wound center. Apart from wrapping wound they have not done any other treatments to the wound. She denies chills, fever or otherwise feeling of unwell. Progress of Wound: Improving. - Physical Exam Vital Signs Temp Pulse Resp BP 98.2 F 80 18 140/61 H 03/05/18 11:29 03/05/18 11:29 03/05/18 11:29 03/05/18 11:29 General: Alert, Oriented x3, Cooperative, No apparent distress HEENT: Atraumatic, Normocephalic Oral: Moist Mucosa Neck: Supple Lungs: Normal air movement Abdomen: Non Tender Extremities: No cyanosis Skin: Ulcer/ Wound Wound Measurements and Assessment WC - Nurse 1 - General Ulcer Measurement Start: 02/26/18 11:17 Freq: Status: Active Protocol: Activity Type Activity Date Activity User E-Sign Co-Sign Detail Recorded Client Recorded Date Recorded By Document 03/05/18 11:29 [id number] 03/05/18 11:32 RB 03/05/18 11:29 Wound Center Nurse 1 [Ulcer Assessment] #2 RIGHT JONES -Combined with other wound No -Current Size (cm) - Length 2.3 -Current Size (cm) - Width 1 -Current Size (cm) - Depth 0.1 -Total Square Cm 2.3 -Photo Taken No -Tunneling No -Undermining/Tunneling No -Circular Undermining No -Exudate Amt Small (1-33%) -Exudate Type Serosanguineous -Wound Margin Distinct, Outline Attached -Granulation Amt Large (67-100%) -Granulation Quality [place] -Slough/Fibrin Yes -Necrosis Amt Small (1-33%) -Necrotic Tissue Type Adherent Slough -Structure Exposed N/A -Texture (Lilia-wound Skin Appearance) Assessed -Moisture (Lilia-wound Skin Appearance Assessed ) -Color (Lilia-wound Skin Appearance) Assessed -Temperature (Lilia-wound Skin No Abnormality Appearance) (Pt Warm) -Tenderness on Palpation (Lilia-wound No Skin Appearance) -Ulcer Cleansing Rinsed/ Irrigated with Saline -Foul Odor after Cleansing No -Anesthetic Used 5% Lidocaine Gel [Edema Assessment] -Lower Limb Edema Present Yes -Right Calf (cm) 36 -Right Ankle (cm) 21 WC - Nurse 2 - General Ulcer CM Notes Start: 02/26/18 11:17 Freq: Status: Active Protocol: Activity Type Activity Date Activity User E-Sign Co-Sign Detail Recorded Client Recorded Date Recorded By Document 03/05/18 11:51 MW [id number] 03/05/18 11:52 MW 03/05/18 11:51 Wound Center Nurse 2 [Procedure/Treatment] #2 RIGHT JONES -Time 11:51 -Correct Patient Yes -Correct Side, Site, Position Yes -Correct Procedure Yes -Procedure Performed Yes -Type of Procedure Debridement -Clinical Debridement Subcutaneous -Post Debridement Size (cm) - Length 2.3 -Post Debridement Size (cm) - Width 0.7 -Post Debridement Size (cm) - Depth 0.1 -Total Square Cm 1.61 -Wound/Ulcer Outcome Not Healed -Ulcer Cleansing Rinsed/ Irrigated with Saline -Foul Odor after Cleansing No -Bioengineered Tissue No -Bleeding Controlled with Pressure -Offloading No -Treatment Response Procedure Tolerated Well [See Physician Procedure note for Specifics] Pain Scale: 0-10 Numeric [Pain] -Is Patient Pain Free? Yes Musculoskeletal: No Muscle Wasting Neurological: Cranial nerves II-XII grossly intact Psych/Mental Status: Normal Affect Debridement Note Post-Debridement Measurements/Treatment WC - Nurse 2 - General Ulcer CM Notes Start: 02/26/18 11:17 Freq: Status: Active Protocol: Activity Type Activity Date Activity User E-Sign Co-Sign Detail Recorded Client Recorded Date Recorded By Document 03/05/18 11:51 MW [id number] 03/05/18 11:52 MW 03/05/18 11:51 Wound Center Nurse 2 #2 RIGHT JONES -Time 11:51 -Correct Patient Yes -Correct Side, Site, Position Yes -Correct Procedure Yes -Procedure Performed Yes -Type of Procedure Debridement -Clinical Debridement Subcutaneous -Post Debridement Size (cm) - Length 2.3 -Post Debridement Size (cm) - Width 0.7 -Post Debridement Size (cm) - Depth 0.1 -Total Square Cm 1.61 -Wound/Ulcer Outcome Not Healed -Ulcer Cleansing Rinsed/ Irrigated with Saline -Foul Odor after Cleansing No -Bioengineered Tissue No -Bleeding Controlled with Pressure -Offloading No -Treatment Response Procedure Tolerated Well Pain Scale: 0-10 Numeric Is Patient Pain Free? Yes Wound debrided: Right lower extremity Wound Grade/Stage: Stage II Type of Debridement: Excisional debridement Anesthesia Used: 4% Lidocaine Solution Depth: Down to and including healthy tissue, in the subcutaneous layer Percentage of wound debrided: 100 Instrument Used: 3mm curette Tissue Removed: Slough adn devitalized tissue Severity: Fat Layer Exposed Amount of bleeding with debridement: Mild Bleeding Controlled with: Pressure Patient tolerated procedure well Assessment/Plan Active Problems Ulcer of right lower extremity with fat layer exposed (Chronic) Assessment: Right anterior lower extremity ulcer with slightly exposed. Nonhealing. Right posterior lower extremity ulcer with fat layer exposed. Nonhealing. Type 2 diabetes mellitus. Plan: Improving. Debridement done as documented above. Procedure was well-tolerated. Continue Fibracol with Adaptic over top. Change daily. Continue Tubigrip's for edema management. Advised to elevate lower extremities when sitting and in bed. Increased protein intake also recommended. Avoid idle standing. Exercise and weight loss also recommended. Optimal blood sugar control, follow-up with PCP. Vascular surgery for PAD. All her questions were answered and she was advised to call with any further questions or concerns. Follow-up in 2 weeks due to family constraints. This note was generated with [employer] software. It may contain incorrect words, spelling, and punctuation that were not noted in checking the note before signing.
--- NOTE | 2018-03-05 11:56 | PN.PCM_ITS ---
(1) Ulcer of right lower extremity with fat layer exposed Status: Chronic Current Visit: Yes Code(s): L97.912 - Non-pressure chronic ulcer of unspecified part of right lower leg with fat layer exposed (2) Peripheral arterial disease Status: Acute Current Visit: No Code(s): I73.9 - Peripheral vascular disease, unspecified (3) Type II diabetes mellitus Status: Chronic Current Visit: No Code(s): E11.9 - Type 2 diabetes mellitus without complications Type of Wound Chief Complaint: Right lower extremity ulcers. History of Wound: Ms. Rivera is a 72-year-old was in a stable state of health until couple weeks ago when she developed cellulitis with subsequent blistering of her right lower extremity. She was seen by primary care physician and started on antibiotics and was also recommended Darwin wraps. She subsequently developed 2 ulcers in the right lower extremity and again was seen by her primary care physician who advised continued wrapping. Ulcer persisted and she was subsequently referred to the wound center. Apart from wrapping wound they have not done any other treatments to the wound. She denies chills, fever or otherwise feeling of unwell. Progress of Wound: Improving. - Physical Exam Vital Signs Temp Pulse Resp BP 98.2 F 80 18 140/61 H 03/05/18 11:29 03/05/18 11:29 03/05/18 11:29 03/05/18 11:29 General: Alert, Oriented x3, Cooperative, No apparent distress HEENT: Atraumatic, Normocephalic Oral: Moist Mucosa Neck: Supple Lungs: Normal air movement Abdomen: Non Tender Extremities: No cyanosis Skin: Ulcer/ Wound Wound Measurements and Assessment WC - Nurse 1 - General Ulcer Measurement Start: 02/26/18 11:17 Freq: Status: Active Protocol: Activity Type Activity Date Activity User E-Sign Co-Sign Detail Recorded Client Recorded Date Recorded By Document 03/05/18 11:29 [id number] 03/05/18 11:32 RB 03/05/18 11:29 Wound Center Nurse 1 [Ulcer Assessment] #2 RIGHT JONES -Combined with other wound No -Current Size (cm) - Length 2.3 -Current Size (cm) - Width 1 -Current Size (cm) - Depth 0.1 -Total Square Cm 2.3 -Photo Taken No -Tunneling No -Undermining/Tunneling No -Circular Undermining No -Exudate Amt Small (1-33%) -Exudate Type Serosanguineous -Wound Margin Distinct, Outline Attached -Granulation Amt Large (67-100%) -Granulation Quality [place] -Slough/Fibrin Yes -Necrosis Amt Small (1-33%) -Necrotic Tissue Type Adherent Slough -Structure Exposed N/A -Texture (Lilia-wound Skin Appearance) Assessed -Moisture (Lilia-wound Skin Appearance Assessed ) -Color (Lilia-wound Skin Appearance) Assessed -Temperature (Lilia-wound Skin No Abnormality Appearance) (Pt Warm) -Tenderness on Palpation (Lilia-wound No Skin Appearance) -Ulcer Cleansing Rinsed/ Irrigated with Saline -Foul Odor after Cleansing No -Anesthetic Used 5% Lidocaine Gel [Edema Assessment] -Lower Limb Edema Present Yes -Right Calf (cm) 36 -Right Ankle (cm) 21 WC - Nurse 2 - General Ulcer CM Notes Start: 02/26/18 11:17 Freq: Status: Active Protocol: Activity Type Activity Date Activity User E-Sign Co-Sign Detail Recorded Client Recorded Date Recorded By Document 03/05/18 11:51 MW [id number] 03/05/18 11:52 MW 03/05/18 11:51 Wound Center Nurse 2 [Procedure/Treatment] #2 RIGHT JONES -Time 11:51 -Correct Patient Yes -Correct Side, Site, Position Yes -Correct Procedure Yes -Procedure Performed Yes -Type of Procedure Debridement -Clinical Debridement Subcutaneous -Post Debridement Size (cm) - Length 2.3 -Post Debridement Size (cm) - Width 0.7 -Post Debridement Size (cm) - Depth 0.1 -Total Square Cm 1.61 -Wound/Ulcer Outcome Not Healed -Ulcer Cleansing Rinsed/ Irrigated with Saline -Foul Odor after Cleansing No -Bioengineered Tissue No -Bleeding Controlled with Pressure -Offloading No -Treatment Response Procedure Tolerated Well [See Physician Procedure note for Specifics] Pain Scale: 0-10 Numeric [Pain] -Is Patient Pain Free? Yes Musculoskeletal: No Muscle Wasting Neurological: Cranial nerves II-XII grossly intact Psych/Mental Status: Normal Affect Debridement Note Post-Debridement Measurements/Treatment WC - Nurse 2 - General Ulcer CM Notes Start: 02/26/18 11:17 Freq: Status: Active Protocol: Activity Type Activity Date Activity User E-Sign Co-Sign Detail Recorded Client Recorded Date Recorded By Document 03/05/18 11:51 MW [id number] 03/05/18 11:52 MW 03/05/18 11:51 Wound Center Nurse 2 #2 RIGHT JONES -Time 11:51 -Correct Patient Yes -Correct Side, Site, Position Yes -Correct Procedure Yes -Procedure Performed Yes -Type of Procedure Debridement -Clinical Debridement Subcutaneous -Post Debridement Size (cm) - Length 2.3 -Post Debridement Size (cm) - Width 0.7 -Post Debridement Size (cm) - Depth 0.1 -Total Square Cm 1.61 -Wound/Ulcer Outcome Not Healed -Ulcer Cleansing Rinsed/ Irrigated with Saline -Foul Odor after Cleansing No -Bioengineered Tissue No -Bleeding Controlled with Pressure -Offloading No -Treatment Response Procedure Tolerated Well Pain Scale: 0-10 Numeric Is Patient Pain Free? Yes Wound debrided: Right lower extremity Wound Grade/Stage: Stage II Type of Debridement: Excisional debridement Anesthesia Used: 4% Lidocaine Solution Depth: Down to and including healthy tissue, in the subcutaneous layer Percentage of wound debrided: 100 Instrument Used: 3mm curette Tissue Removed: Slough adn devitalized tissue Severity: Fat Layer Exposed Amount of bleeding with debridement: Mild Bleeding Controlled with: Pressure Patient tolerated procedure well Assessment/Plan Active Problems Ulcer of right lower extremity with fat layer exposed (Chronic) Assessment: Right anterior lower extremity ulcer with slightly exposed. Nonhealing. Right posterior lower extremity ulcer with fat layer exposed. Nonhealing. Type 2 diabetes mellitus. Plan: Improving. Debridement done as documented above. Procedure was well- tolerated. Continue Fibracol with Adaptic over top. Change daily. Continue Tubigrip's for edema management. Advised to elevate lower extremities when sitting and in bed. Increased protein intake also recommended. Avoid idle standing. Exercise and weight loss also recommended. Optimal blood sugar control, follow-up with PCP. Vascular surgery for PAD. All her questions were answered and she was advised to call with any further questions or concerns. Follow-up in 2 weeks due to family constraints. This note was generated with [employer] software. It may contain incorrect words, spelling, and punctuation that were not noted in checking the note before signing.
[2018-03-19 11:36] VITALS: BP 141/62; PULSE 83; RESP 18; TEMP 36.2
--- NOTE | 2018-03-19 12:55 | PCM.WC.PN ---
(1) Ulcer of right lower extremity with fat layer exposed Status: Chronic Current Visit: Yes Code(s): L97.912 - Non-pressure chronic ulcer of unspecified part of right lower leg with fat layer exposed (2) Peripheral arterial disease Status: Acute Current Visit: No Code(s): I73.9 - Peripheral vascular disease, unspecified (3) Type II diabetes mellitus Status: Chronic Current Visit: No Code(s): E11.9 - Type 2 diabetes mellitus without complications Type of Wound Chief Complaint: Right lower extremity ulcers. History of Wound: Ms. Rivera is a 72-year-old was in a stable state of health until couple weeks ago when she developed cellulitis with subsequent blistering of her right lower extremity. She was seen by primary care physician and started on antibiotics and was also recommended Darwin wraps. She subsequently developed 2 ulcers in the right lower extremity and again was seen by her primary care physician who advised continued wrapping. Ulcer persisted and she was subsequently referred to the wound center. Apart from wrapping wound they have not done any other treatments to the wound. She denies chills, fever or otherwise feeling of unwell. Progress of Wound: Improving. - Physical Exam Vital Signs Temp Pulse Resp BP 97.1 F L 83 18 141/62 H 03/19/18 11:36 03/19/18 11:36 03/19/18 11:36 03/19/18 11:36 General: Alert, Cooperative, No apparent distress HEENT: Atraumatic, Normocephalic Oral: Moist Mucosa Neck: Supple Lungs: Normal air movement Abdomen: Obese Extremities: No cyanosis Skin: Ulcer/ Wound Wound Measurements and Assessment WC - Nurse 1 - General Ulcer Measurement Start: 02/26/18 11:17 Freq: Status: Active Protocol: Activity Type Activity Date Activity User E-Sign Co-Sign Detail Recorded Client Recorded Date Recorded By Document 03/19/18 11:36 [id number] 03/19/18 11:46 RB 03/19/18 11:36 Wound Center Nurse 1 [Ulcer Assessment] #2 RIGHT JONES -Combined with other wound No -Current Size (cm) - Length 1.3 -Current Size (cm) - Width 0.4 -Current Size (cm) - Depth 0.1 -Total Square Cm 0.52 -Photo Taken No -Tunneling No -Undermining/Tunneling No -Circular Undermining No -Exudate Amt Small (1-33%) -Exudate Type Serosanguineous -Wound Margin Distinct, Outline Attached -Granulation Amt Large (67-100%) -Granulation Quality [place] -Slough/Fibrin Yes -Necrosis Amt Small (1-33%) -Necrotic Tissue Type Adherent Slough -Texture (Lilia-wound Skin Appearance) Assessed -Moisture (Lilia-wound Skin Appearance Assessed ) -Color (Lilia-wound Skin Appearance) Assessed -Temperature (Lilia-wound Skin No Abnormality Appearance) (Pt Warm) -Tenderness on Palpation (Lilia-wound No Skin Appearance) -Ulcer Cleansing Rinsed/ Irrigated with Saline -Foul Odor after Cleansing No -Anesthetic Used 5% Lidocaine Gel [Edema Assessment] -Lower Limb Edema Present Yes -Right Calf (cm) 36.5 -Right Ankle (cm) 21.6 Musculoskeletal: No Muscle Wasting Neurological: Cranial nerves II-XII grossly intact Psych/Mental Status: Normal Affect Debridement Note Post-Debridement Measurements/Treatment WC - Nurse 2 - General Ulcer CM Notes Start: 02/26/18 11:17 Freq: Status: Active Protocol: Activity Type Activity Date Activity User E-Sign Co-Sign Detail Recorded Client Recorded Date Recorded By Document 03/05/18 11:51 MW [id number] 03/05/18 11:52 MW 03/05/18 11:51 Wound Center Nurse 2 #2 RIGHT JONES -Time 11:51 -Correct Patient Yes -Correct Side, Site, Position Yes -Correct Procedure Yes -Procedure Performed Yes -Type of Procedure Debridement -Clinical Debridement Subcutaneous -Post Debridement Size (cm) - Length 2.3 -Post Debridement Size (cm) - Width 0.7 -Post Debridement Size (cm) - Depth 0.1 -Total Square Cm 1.61 -Wound/Ulcer Outcome Not Healed -Ulcer Cleansing Rinsed/ Irrigated with Saline -Foul Odor after Cleansing No -Bioengineered Tissue No -Bleeding Controlled with Pressure -Offloading No -Treatment Response Procedure Tolerated Well Pain Scale: 0-10 Numeric Is Patient Pain Free? Yes Wound debrided: Right lower extremity Wound Grade/Stage: Stage II Type of Debridement: Excisional debridement Anesthesia Used: 4% Lidocaine Solution Depth: Down to and including healthy tissue, in the subcutaneous layer Percentage of wound debrided: 100 Instrument Used: 3mm curette Tissue Removed: Slough and devitalized tissue Severity: Fat Layer Exposed Amount of bleeding with debridement: Mild Bleeding Controlled with: Pressure Patient tolerated procedure well Assessment/Plan Active Problems Ulcer of right lower extremity with fat layer exposed (Chronic) Assessment: Right anterior lower extremity ulcer with slightly exposed. Nonhealing. Right posterior lower extremity ulcer with fat layer exposed. Nonhealing. Type 2 diabetes mellitus. Plan: Improving. Debridement done as documented above. Procedure was well-tolerated. Continue Fibracol with Adaptic over top. Change daily. Continue Tubigrip's for edema management. Advised to elevate lower extremities when sitting and in bed. Increased protein intake also recommended. Avoid idle standing. Exercise and weight loss also recommended. Optimal blood sugar control, follow-up with PCP. Vascular surgery for PAD. All her questions were answered and she was advised to call with any further questions or concerns. Follow-up in 2 weeks. This note was generated with [employer] dictation software. It may contain incorrect words, spelling, and punctuation that were not noted in checking the note before signing.
== END 2018-03-23 23:59 ==
LOC: WC 11:00
PROVIDERS: Family Provider Family Medicine; PCP Family Medicine; Referring Provider Internal Medicine; Visit Provider Internal Medicine
DX: E11.622 Type 2 diabetes mellitus with other skin ulcer (principal); E11.51 Type 2 diabetes mellitus with diabetic peripheral angiopathy without gangrene; L97.812 Non-pressure chronic ulcer of other part of right lower leg with fat layer exposed
CPT/HCPCS: 11042; 99212; G0463

== ENCOUNTER 2018-04-01 07:38 | Outpatient (RCR) | payer MEDICARE, SELFPAY ==
[2018-03-24 01:00] VITALS: BP 141/62; PULSE 83; RESP 18; TEMP 36.2
[2018-04-01 09:52] VITALS: BP 111/42; PULSE 80; RESP 18; TEMP 36.3
--- NOTE | 2018-04-01 12:26 | PN.PCM_ITS ---
(1) Ulcer of right lower extremity with fat layer exposed Status: Chronic Current Visit: Yes Code(s): L97.912 - Non-pressure chronic ulcer of unspecified part of right lower leg with fat layer exposed Type of Wound Chief Complaint: Right lower extremity ulcers. History of Wound: Ms. Rivera is a 72-year-old was in a stable state of health until couple weeks ago when she developed cellulitis with subsequent blistering of her right lower extremity. She was seen by primary care physician and started on antibiotics and was also recommended Darwin wraps. She subsequently developed 2 ulcers in the right lower extremity and again was seen by her primary care physician who advised continued wrapping. Ulcer persisted and she was subsequently referred to the wound center. Apart from wrapping wound they have not done any other treatments to the wound. She denies chills, fever or otherwise feeling of unwell. Progress of Wound: Healed. - Physical Exam Vital Signs Temp Pulse Resp BP 97.3 F L 80 18 111/42 L 04/01/18 09:52 04/01/18 09:52 04/01/18 09:52 04/01/18 09:52 General: Alert, Oriented x3, Cooperative, No apparent distress HEENT: Atraumatic Oral: Moist Mucosa Neck: Supple Lungs: Normal air movement Extremities: No cyanosis, Edema Wound Measurements and Assessment WC - Nurse 1 - General Ulcer Measurement Start: 04/01/18 09:52 Freq: Status: Active Protocol: Activity Type Activity Date Activity User E-Sign Co-Sign Detail Recorded Client Recorded Date Recorded By Document 04/01/18 09:52 [id number] 04/01/18 09:59 04/01/18 09:52 Wound Center Nurse 1 [Ulcer Assessment] #2 RIGHT JONES -Combined with other wound No -Current Size (cm) - Length 0.1 -Current Size (cm) - Width 0.1 -Current Size (cm) - Depth 0.1 -Total Square Cm 0.01 -Date of Last Picture (Recall this 04/01/18 field) -Photo Taken Yes -Epithelialization Medium 34-66% -Tunneling No -Undermining/Tunneling No -Circular Undermining No -Exudate Amt None Present -Granulation Quality N/A -Necrosis Amt Large (67-100%) -Necrotic Tissue Type Adherent Slough -Temperature (Lilia-wound Skin No Abnormality Appearance) (Pt Warm) -Tenderness on Palpation (Lilia-wound No Skin Appearance) -Ulcer Cleansing Rinsed/ Irrigated with Saline -Anesthetic Used 4% Lidocaine Solution [Edema Assessment] -Lower Limb Edema Present No -Right Calf (cm) 36 -Right Ankle (cm) 21.5 WC - Nurse 2 - General Ulcer CM Notes Start: 04/01/18 09:52 Freq: Status: Active Protocol: Activity Type Activity Date Activity User E-Sign Co-Sign Detail Recorded Client Recorded Date Recorded By Document 04/01/18 10:20 MW [id number] 04/01/18 10:22 MW 04/01/18 10:20 Wound Center Nurse 2 [Procedure/Treatment] #2 RIGHT JONES -Time 10:21 -Correct Patient Yes -Correct Side, Site, Position Yes -Correct Procedure Yes -Procedure Performed No -Post Debridement Size (cm) - Length 0 -Post Debridement Size (cm) - Width 0 -Post Debridement Size (cm) - Depth 0 -Total Square Cm 0 -Wound/Ulcer Outcome Healed- Epithelialized [See Physician Procedure note for Specifics] Pain Scale: 0-10 Numeric [Pain] -Is Patient Pain Free? Yes Musculoskeletal: No Muscle Wasting Neurological: Cranial nerves II-XII grossly intact Debridement Note Post-Debridement Measurements/Treatment WC - Nurse 2 - General Ulcer CM Notes Start: 04/01/18 09:52 Freq: Status: Active Protocol: Activity Type Activity Date Activity User E-Sign Co-Sign Detail Recorded Client Recorded Date Recorded By Document 04/01/18 10:20 MW [id number] 04/01/18 10:22 MW 04/01/18 10:20 Wound Center Nurse 2 #2 RIGHT JONES -Time 10:21 -Correct Patient Yes -Correct Side, Site, Position Yes -Correct Procedure Yes -Procedure Performed No -Post Debridement Size (cm) - Length 0 -Post Debridement Size (cm) - Width 0 -Post Debridement Size (cm) - Depth 0 -Total Square Cm 0 -Wound/Ulcer Outcome Healed- Epithelialized Pain Scale: 0-10 Numeric Is Patient Pain Free? Yes No debridement was completed today Assessment/Plan Active Problems Ulcer of right lower extremity with fat layer exposed (Chronic) Assessment: Right anterior lower extremity ulcer with slightly exposed. Nonhealing. Right posterior lower extremity ulcer with fat layer exposed. Nonhealing. Type 2 diabetes mellitus. Plan: Healed. No debridement completed today. Continue Adaptic over top for 2 weeks. Continue compression stockings for compression. Elevate lower extremities when seated in bed. Advised to call with any questions or concerns. Discharged from the wound clinic. This note was generated with [employer] dictation software. It may contain incorrect words, spelling, and punctuation that were not noted in checking the note before signing.
== END 2018-04-23 23:59 ==
LOC: WC 07:38
PROVIDERS: Family Provider Family Medicine; PCP Family Medicine; Referring Provider Internal Medicine; Visit Provider Internal Medicine
DX: Z09 Encounter for follow-up examination after completed treatment for conditions other than malignant neoplasm (principal); E11.51 Type 2 diabetes mellitus with diabetic peripheral angiopathy without gangrene
CPT/HCPCS: 99213; G0463

== ENCOUNTER 2021-01-30 06:26 | Inpatient (IN) | payer MEDICARE, SELFPAY ==
[2021-01-30 06:27] VITALS: BP 127/37; PULSE 142; RESP 18; TEMP 36.6; O2SAT 100; BMI 40.1
--- NOTE | 2021-01-30 06:50 | CT_ITS ---
STUDY: CT BRAIN WITHOUT CONTRAST REASON FOR EXAM: Female, 75 years old. fall, weakness RADIATION DOSAGE (If Supplied By Facility): CTDIvol = ( 44.99 ) mGy, DLP = ( 846.73 ) mGycm TECHNIQUE: Transaxial CT imaging of the brain was performed without administration of intravenous contrast material. Individualized dose optimization techniques were used for this CT. COMPARISON: No relevant priors. FINDINGS: Normal soft tissue structures. Normal calvarium. Normal size ventricles and extra-axial spaces for the patient''s age. There are areas of decreased attenuation within the white matter tracts of the supratentorial brain, consistent with microvascular disease changes. Normal basal ganglia and thalami. Normal brainstem. Normal cerebellum. There is no intracranial hemorrhage. There are no findings of an acute ischemic infarction. Normal visualized paranasal sinuses. CT/Brain/Head without Contrast IMPRESSION: Chronic involutional changes of the brain. Electronically Signed: Zachary Daily MD at 8:05 EST Tel , Service support ,
--- NOTE | 2021-01-30 06:50 | RAD_ITS ---
STUDY: X-RAY CHEST REASON FOR EXAM: Female, 75 years old. weakness , fall 1 week ago TECHNIQUE: AP COMPARISON: None FINDINGS: EKG leads project over the chest. No airspace consolidation. There is no demonstrated pleural abnormality. Normal size heart. Normal mediastinum and alexsandra. Normal visualized pulmonary arteries. There is atherosclerotic tortuosity of the aortic arch and descending thoracic aorta. No acute bony process. There is no demonstrated abnormality of the visualized soft tissue structures of the upper abdomen. RAD/Chest 1 View (Portable) IMPRESSION: Nonacute portable x-ray examination of the chest. Electronically Signed: Earl Sierra MD ([place]) at 7:52 EST , Service support ,
--- NOTE | 2021-01-30 06:51 | EKG12_ITS ---
Test Reason : FALL Blood Pressure : / mmHG Vent. Rate : 136 BPM Atrial Rate : 136 BPM P-R Int : 122 ms QRS Dur : 056 ms QT Int : 302 ms P-R-T Axes : 068 057 053 degrees QTc Int : 454 ms Sinus tachycardia Low voltage QRS Nonspecific ST abnormality Abnormal ECG Confirmed by SHER JONES, SUMA ([id number]), editor trade journal GALA JACOME ([id number]) on 01/31/2021 9:24:19 AM Referred By: NOÉ Confirmed By:SUMA OLIVAREZ MD
--- NOTE | 2021-01-30 06:52 | RAD_ITS ---
STUDY: X-RAY - RIGHT FOOT CLINICAL: Female, 75 years old. Injury/Pain TECHNIQUE: 3 view(s) of the foot. COMPARISON: None. FINDINGS: There is demineralization of the rear and midfoot bones. Normal visualized subtalar, talonavicular, calcaneocuboid, tarsal and tarsometatarsal articulations. There is demineralization of the metatarsi. There is degenerative arthrosis of the metatarsophalangeal joint of the hallux with a hallux valgus deformity. Normal tibial and fibular sesamoid bones. Normal interphalangeal joint of the great toe. Nondisplaced fracture of the proximal phalanx of the big toe Normal second through fifth metatarsophalangeal joints. There is nondisplaced fracture of the base of the proximal phalanx of the second toe. The soft tissue structures are unremarkable. RAD/Foot min 3 Views IMPRESSION: Nondisplaced fracture of the proximal phalanx of the big toe There is nondisplaced fracture of the base of the proximal phalanx of the second toe. Electronically Signed: Zachary Daily MD at 8:02 EST Tel , Service support ,
--- NOTE | 2021-01-30 06:52 | RAD_ITS ---
STUDY: X-RAY - PELVIS AND RIGHT HIP REASON FOR EXAM: Female, 75 years old. Injury/Pain TECHNIQUE: 3 views of the pelvis and hip. COMPARISON: None. FINDINGS: There is a non-specific bowel gas pattern. Normal visualized soft tissue structures. There is narrowing with cortical sclerosis and osteophyte formation of the sacroiliac joint consistent with degenerative osteoarthritic changes. Normal bilateral superior and inferior pubic rami. There are degenerative changes of the pubic symphysis with articular narrowing and sclerosis. Normal bilateral ischial tuberosities. There are osteoarthritic changes of the femoral head with marginal osteophyte formation. Normal acetabulum. Normal hip joint. 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 Electronically Signed: Zachary Daily MD at 8:05 EST Tel , Service support ,
--- NOTE | 2021-01-30 06:57 | NURSING ---
NO OLD EKGS
[2021-01-30 07:13] VITALS: PULSE 136; RESP 18; O2SAT 96
[2021-01-30] MEDS: Morphine 4 MG/ML Syringe IV (07:15)
--- NOTE | 2021-01-30 07:16 | RAD_ITS ---
STUDY: X-RAY - RIGHT ANKLE REASON FOR EXAM: Female, 75 years old. fall. pain TECHNIQUE: History view(s) of the ankle. COMPARISON: None. FINDINGS: Demineralization of the visualized distal tibia and fibula. Normal medial and lateral malleoli. Normal tibiotalar articulation and ankle mortise. Normal visualized talus and calcaneus. The visualized subtalar, talonavicular, calcaneocuboid and tarsal articulations are normal. There are atherosclerotic calcifications. RAD/Ankle min 3 Views IMPRESSION: Degenerative changes of the ankle. Electronically Signed: Zachary Daily MD at 8:03 EST Tel , Service support ,
--- NOTE | 2021-01-30 07:17 | EDS_ITS ---
HPI History of Present Illness Chief Complaint: Neuro S/Sx Informant: patient and spouse/S.O. Onset/Context/Timing Onset: Today Current Severity: Mild Maximum Severity: Moderate Narrative Narrative: 75 female history of diabetes, rheumatoid arthritis peripheral arterial disease. For weeks to months she has had weakness in her right lower extremity and difficulty ambulating. She has rheumatoid arthritis and is also had numbness in the right leg. says it gives her great difficulty in standing. Now it is causing her at falls. She fell x2 yesterday. No LOC. No head injury. She complains of pain in her right ankle. She is not on any blood thinners. She denies any recent nausea, vomiting or diarrhea. No dysuria or fever. She denies any recent illness. Or hospitalization. Prior similar symptoms: Yes Recent Illness/Hospitalization: No [facility] Medical History (Updated 01/30/21 @ 08:[address] Kali Hardin MD) Diabetes Hypertension Hypothyroidism Peripheral vascular disease Rheumatoid arthritis Home Medications clindamycin HCl 300 mg PO 4X/DAY 12/15/17 [History Last Taken Unknown] furosemide 40 mg PO DAILY 12/15/17 [History Last Taken Unknown] leflunomide 10 mg PO DAILY 12/15/17 [History Last Taken Unknown] levothyroxine 125 mcg PO DAILY 12/15/17 [History Last Taken Unknown] lisinopril 40 mg PO DAILY 12/15/17 [History Last Taken Unknown] lovastatin 40 mg PO DAILY 12/15/17 [History Last Taken Unknown] metformin 500 mg PO BIDCM 12/15/17 [History Last Taken Unknown] albuterol sulfate [Ventolin Hfa (SP)] 2 puff INHALATION Q4H PRN PRN 12/17/17 [History Last Taken Unknown] amlodipine [Norvasc] 10 mg PO DAILY 12/17/17 [History Last Taken Unknown] aspirin 81 mg PO DAILY 12/17/17 [History Last Taken Unknown] atenolol 50 mg PO BID 12/17/17 [History Last Taken Unknown] doxazosin 4 mg PO QHS 12/17/17 [History Last Taken Unknown] ergocalciferol (vitamin D2) [Vitamin D] 50,000 unit PO Q7D 12/17/17 [History Last Taken Unknown] golimumab [Simponi Aria] See Rx Instructions .ROUTE .COMPLEX 12/17/17 [History Last Taken Unknown] hydroxyzine HCl 25 mg PO Q4H PRN PRN 12/17/17 [History Last Taken Unknown] insulin NPH and regular human [Novolin 70/30] 40 units SUBCUT BIDAC 12/17/17 [History Last Taken Unknown] insulin NPH isoph U-100 human [Novolin N] 70 unit SQ DAILY 12/17/17 [History Last Taken Unknown] prednisone 2.5 mg PO DAILY 12/17/17 [History Last Taken Unknown] timolol maleate [Timoptic-XE 0.5%] 1 drp EACH EYE BID 12/17/17 [History Last Taken Unknown] Allergy/AdvReac Type Severity Reaction Status Date / Time No Known Allergies Allergy Verified 01/30/21 07:26 Social History Smoking Status: Former smoker ROS ROS ED ROS Narrative Denies recent illness. Review of Systems ROS Unobtainable: Denies due to encephalopathy Constitutional Constitutional ED: Denies fever(s) Eyes Eyes: Denies change in vision ENT ENT ED: Denies ear pain Cardiovascular Cardiovascular: Denies chest pain Respiratory/Chest Respiratory/Chest: Denies cough or dyspnea Gastrointestinal Gastrointestinal: Denies abdominal pain, diarrhea, nausea or vomiting Genitourinary Genitourinary ED: Denies dysuria Musculoskeletal Musculoskeletal: Denies myalgias Integumentary Denies rash Neurologic Neurologic: Denies headache(s) Psychiatric Psychiatric: Denies depression Endocrine Endocrinology: Denies polyuria Allergic/Immunologic Allergic/Immunologic ED: Denies urticaria EXAM Physical Exam Narrative Exam Narrative: Older female no acute distress. She is tachycardic at 140 range. H EENT exam unremarkable atraumatic. Moist mucous memories. Neck nontender. Lungs clear to auscultation. Heart tachycardic rate about 140 no murmur. Abdomen soft nontender. Normal bowel sounds no peritoneal signs. Pelvic girdle intact. She has pain in her right ankle and abrasions to her lower leg. Pain on palpation of the right ankle. No deformity. Neurologically she is awake. She is alert. She is answering questions and following commands. She moves all 4 extremities but she is decreased range of motion, strength and sensation in the right lower extremity. Const Vital Signs: 01/30/21 06:27 01/30/21 07:13 01/30/21 07:21 Temperature 97.9 F Temperature Source Oral Pulse Rate 142 H 136 H Respiratory Rate 18 18 Respiratory Effort Short of Breath Blood Pressure 127/37 H Blood Pressure Mean 67 Pulse Ox 100 96 Oxygen Delivery Method Room Air Room Air Positive well nourished, well developed and obese; Negative for cachectic, contractures or unkempt General Appearance ED: well developed; Negative for unkempt, cachectic, contractures, cyanotic, diaphoretic or NAD Nutritional Appearance: obese; Negative for cachectic HEENT Reports moist mucous membranes Negative for trauma or tenderness Eyes PERRL and EOMs intact bilaterally Neck no lymphadenopathy, supple and no JVD General: Negative for tenderness Chest Wall inspection of chest normal and palpation of chest normal Resp normal respiratory effort and clear to auscultation bilaterally Auscultation: Negative for rales, rhonchi or wheezes Cardio regular rhythm, S1 normal heart sound, S2 normal heart sound and no murmurs Rate: tachycardic GI normal to inspection, nondistended, normoactive bowel sounds, non-tender, non- distended and no masses Inspection: Negative for abdominal distention Auscultation: normoactive bowel sounds Palpation: soft; Negative for tender, guarding or rebound tenderness present Back/Spine no CVA tenderness General Back: Negative for CVA tenderness Cervical Spine: Negative for cervical spine tenderness Thoracic Spine / Upper Back: Negative for thoracic spinal tenderness or paraspinal muscle tenderness Extremity Extremity Narrative: Right ankle tenderness. Abrasion. Able to move both lower extremities limited on the right. No gross bony deformity. General Extremety ED: Yes tenderness Neuro oriented x3 and CN's II-XII intact bilaterally Sensorium / Orientation: alert; Negative for orientation impaired, lethargic or stuporous Motor Exam: Negative for strength 5/5 throughout Psych mental status grossly normal Appearance: Negative for unkempt Mood & Affect: Negative for depressed or tearful Skin no rashes or lesions noted Skin Narrative: Abrasions right lower extremity. MDM MDM MDM Narrative Medical decision making narrative: Elderly female falls yesterday. Has injury to her right lower extremity. That will need x-rayed. She is in the undergo screening labs and a CT of her brain. She will need admitted for further evaluation and work-up. She is a tremendous fall risk at home. Repeat exam patient is doing well at Lab Data Attestation: I reviewed the patient's lab results. Lab results narrative: CBC shows a white count 8.7. Hemoglobin 10.8. She has a baseline anemia. Electrolytes sodium 148. Chloride 122. Gap 13. BUN of 56 creatinine 1.72 consistent with dehydration and acute on chronic renal insufficiency. Glucose 285. Troponins elevated 116. Labs: Laboratory Results - last 24 hr 01/30/21 01/30/21 07:10 07:10 WBC 8.7 RBC 3.34 L Hgb 10.8 L Hct 35.0 L MCV 104.8 H MCH 32.3 H MCHC 30.9 L RDW Std Deviation 72.2 H RDW Coeff of Sarah 19.1 H Plt Count 204 MPV 11.9 Immature Gran % (Auto) 1.000 H Neut % (Auto) 73.2 H Lymph % (Auto) 9.2 L Gregg % (Auto) 15.7 H Eos % (Auto) 0.6 Baso % (Auto) 0.3 Absolute Neuts (auto) 6.3 Absolute Lymphs (auto) 0.80 L Nucleated RBC % 0.5 Sodium 148 H Potassium 5.0 Chloride 122 H Carbon Dioxide 13.0 L Anion Gap 13 BUN 56 H Creatinine 1.72 H Estim Creat Clear Calc 20.61 Est GFR (MDRD) Af Amer 37 L Est GFR (MDRD) Non-Af 31 L BUN/Creatinine Ratio 32.6 H Glucose 285 H Calcium 10.0 Troponin I High Sens 116 H Radiography Chest X-Ray - ED: 1 View, Read by ED Physician, Heart, Lungs, Mediastinum, Bony Structures, No Acute Disease and Chronic Changes Diagnostic Testing: Clinical Impression(s) from Imaging Studies Brain CT 01/30/21 06:50 IMPRESSION: Chronic involutional changes of the brain. Electronically Signed: Zachary Daily MD at 8:05 EST Tel , Service support , Chest X-Ray 01/30/21 06:50 IMPRESSION: Nonacute portable x-ray examination of the chest. Electronically Signed: Earl Sierra MD (Brooks) at 7:52 EST , Service support , Foot X-Ray 01/30/21 06:52 IMPRESSION: Nondisplaced fracture of the proximal phalanx of the big toe There is nondisplaced fracture of the base of the proximal phalanx of the second toe. Electronically Signed: Zachary Daily MD at 8:02 EST Tel , Service support , Hip/Pelvis X-Ray 01/30/21 06:52 IMPRESSION: Degenerative arthrosis of the pelvis and hip. Electronically Signed: Zachary Daily MD at 8:05 EST Tel , Service support , Ankle X-Ray 01/30/21 07:16 IMPRESSION: Degenerative changes of the ankle. Electronically Signed: Zachary Daily MD at 8:03 EST Tel , Service support , Chest x-ray 1 view interpreted by myself shows no acute abnormality. Normal cardiac silhouette. No infiltrate. Right foot x-ray 3 views interpreted by myself shows a proximal phalanx fracture of the second toe. Otherwise chronic changes. Right ankle x-ray shows no acute fracture. 3 views interpreted by myself. Right hip x-ray shows no acute process. Chronic changes and arthritis. Interpreted by myself. 2 views. Rhythm Strip Rhythm Strip: Sinus Tach Rate: 136 Ectopy: None EKG Initial EKG: Attestation: I personally reviewed and interpreted this EKG as follows: Interpretation: No Acute Injury Pattern and Sinus Tachycardia Comments: Sinus tachycardia rate of 136 no acute signs of LA nor ischemia. Discharge Plan Dx/Rx/DC Orders Clinical Impression: Type II diabetes mellitus, Peripheral arterial disease, Multiple falls, Acute dehydration, Acute on chronic renal insufficiency, Closed fracture of phalanx of right second toe, Abrasion of multiple sites of right lower extremity, Adult failure to thrive Disposition Disposition: [facility]
[2021-01-30] MEDS: 0.9% Normal Saline 1,000 ML 150 ML IV (07:26)
[2021-01-30 07:27] LABS: Absolute Neutrophil Count 6.3 X10^3/uL (2.0-7.7); Basophil# 0.03 X10^3/uL; Basophil% 0.3 % (0-1); Eosinophil# 0.05 X10^3/uL; Eosinophils% 0.6 % (0-5); Hemoglobin 10.8 g/dL (12.0-15.0); Lymphocyte % 9.2 % (19-41); Mean Corp Hgb Conc 30.9 g/dL (32-36); Mean Corpuscular Hgb 32.3 pg (27.0-32.0); Mean Corpuscular Volume 104.8 fL (81-99); Mean Platelet Vol. 11.9 fl (6.2-12.0); Monocyte# 1.36 X10^3/uL; Monocyte% 15.7 % (0-10); NRBC Flagged by Analyzer 0.5 % (0-5); Neutrophil # 6.32 X10^3/uL (2.7-7.7); Neutrophil % 73.2 % (47-70); POSITIVE MORPHOLOGY YES; Platelet Count 204 K/mm3 (150-450); RBC Distribution Width CV 19.1 % (11.6-14.6); RBC Distribution Width SD 72.2 fl (35.1-43.9); Red Blood Count 3.34 M/mm3 (4.2-5.4); White Blood Count 8.7 K/mm3 (4.4-11.0)
[2021-01-30 07:48] LABS: Anion Gap 13 (5-15); BUN 56 mg/dL (7-18); BUN/Creat Ratio 32.6 RATIO (10-20); Chloride 122 mmol/L (98-107); Creatinine, Serum 1.72 mg/dL (0.55-1.02); EST Glomerular Filtration Rate 31 mL/min (>60); Est Glom Filt Rate - Afr Amer 37 mL/min (>60); Estimated Creatinine Clearance 20.61 ml/min; Glucose 285 mg/dL (74-106); Sodium Level 148 mmol/L (136-145); Troponin-I HS 116 pg/mL (3.0-54.0)
[2021-01-30 07:49] LABS: Differential Indicated SCAN CRITERIA MET
--- NOTE | 2021-01-30 08:05 | NURSING ---
DR ANGEL FOR DR UMANZOR
--- NOTE | 2021-01-30 08:24 | NURSING ---
128 JEANNE FAILURE TO THRIVE, FALLS, DEHYDRATION, RENAL INSUFF, RT LEG WEAKNESS
--- NOTE | 2021-01-30 09:08 | PCM.HP.STD ---
HPI - General General Date of Admission: 01/30/21 HPI Narrative MILAGRO MEDRANO, is a 75 F with history of protracted rheumatoid arthritis, peripheral vascular disease on Biologics was brought to ED for fall 2 times in last 1 week, right foot and leg weakness ongoing for last 2 weeks, numbness of right foot chronic and generalized weakness and dehydration. Patient fell on her back. Mild left paraspinal muscle pain otherwise no bladder retention, fecal incontinence or signs or symptoms concerning of cauda equina syndrome or stroke. Denies fever or chills. Patient also has high creatinine 1.72.8 similar 1.76 in November 2017. BUN elevated. Sodium, chloride high, bicarb 13, anion gap 13. Isolated troponin 116 with patient does not have chest pain or shortness of breath. Patient twelve-lead EKG shows sinus tachycardia 136 bpm, QTC 454 ms. Low voltage QRS complexes. Patient vitals in the ER heart rate 142/min, BP, RR and pulse ox in normal range. Patient has bruise, skin laceration of right foot and toes [facility] Medical History Diabetes Hypertension Hypothyroidism Peripheral vascular disease Rheumatoid arthritis Home Medications clindamycin HCl 300 mg PO 4X/DAY 12/15/17 [History Last Taken Unknown] furosemide 40 mg PO DAILY 12/15/17 [History Last Taken Unknown] leflunomide 10 mg PO DAILY 12/15/17 [History Last Taken Unknown] levothyroxine 125 mcg PO DAILY 12/15/17 [History Last Taken Unknown] lisinopril 40 mg PO DAILY 12/15/17 [History Last Taken Unknown] lovastatin 40 mg PO DAILY 12/15/17 [History Last Taken Unknown] metformin 500 mg PO BIDCM 12/15/17 [History Last Taken Unknown] albuterol sulfate [Ventolin Hfa (SP)] 2 puff INHALATION Q4H PRN PRN 12/17/17 [History Last Taken Unknown] amlodipine [Norvasc] 10 mg PO DAILY 12/17/17 [History Last Taken Unknown] aspirin 81 mg PO DAILY 12/17/17 [History Last Taken Unknown] atenolol 50 mg PO BID 12/17/17 [History Last Taken Unknown] doxazosin 4 mg PO QHS 12/17/17 [History Last Taken Unknown] ergocalciferol (vitamin D2) [Vitamin D] 50,000 unit PO Q7D 12/17/17 [History Last Taken Unknown] golimumab [Simponi Aria] See Rx Instructions .ROUTE .COMPLEX 12/17/17 [History Last Taken Unknown] hydroxyzine HCl 25 mg PO Q4H PRN PRN 12/17/17 [History Last Taken Unknown] insulin NPH and regular human [Novolin 70/30] 40 units SUBCUT BIDAC 12/17/17 [History Last Taken Unknown] insulin NPH isoph U-100 human [Novolin N] 70 unit SQ DAILY 12/17/17 [History Last Taken Unknown] prednisone 2.5 mg PO DAILY 12/17/17 [History Last Taken Unknown] timolol maleate [Timoptic-XE 0.5%] 1 drp EACH EYE BID 12/17/17 [History Last Taken Unknown] Allergy/AdvReac Type Severity Reaction Status Date / Time No Known Allergies Allergy Verified 01/30/21 07:26 Social History Smoking Status: Former smoker ROS ROS Narrative ROS taken from patient and her at the bedside Constitutional: Reports fatigue and weakness, recurrent fall, generalized health poor. Decreased mobility on walker HEENT: Reports systems reviewed and no addt'l complaints, except as documented Respiratory/Chest: Denies chest pain, shortness of breath at rest or with exertion Gastrointestinal: Denies coffee ground emesis, hematemesis or vomiting Genitourinary: Denies burning urination or new urinary tract symptoms Musculoskeletal: Reports joint pain and limited range of motion, rheumatoid arthritis. Mild back pain after fall. Neurologic: Denies seizure-like activity chronic numbness, diabetic neuropathy. skin: Bruises and a skin laceration over foot. Endocrinology: Hypothyroidism and diabetes. Reports systems reviewed and no addt'l complaints, except as documented Hematologic/Lymphatic: Reports systems reviewed and no addt'l complaints, except as documented Rest 12 ROS are negative except as mentioned in HPI Vital Signs Vital Signs Vital Signs: 01/30/21 06:27 01/30/21 07:13 01/30/21 07:21 Temperature 97.9 F Temperature Source Oral Pulse Rate 142 H 136 H Respiratory Rate 18 18 Respiratory Effort Short of Breath Blood Pressure 127/37 H Blood Pressure Mean 67 Pulse Ox 100 96 Oxygen Delivery Method Room Air Room Air Weight Weight: 205 lb 7.533 oz Body Mass Index (BMI) 40.1 Physical Exam Narrative General: Alert, Oriented x3, Cooperative HEENT: Atraumatic, PERRLA, EOMI, Normocephalic Oral: Oral mucosa very dry. Dehydrated. No Gingival or Mucosal Lesions/ Ulcerations Neck: Supple, No JVD, Negative Carotid Bruits Lungs: Air entry diminished in bilateral lung bases. No crepitation/rhonchi Cardiovascular: Sinus tachycardia, Normal S1, Normal S2, No murmurs Abdomen: Bowel Sounds Present, Soft, Non Tender, Non-Distended : No renal angle tenderness. No suprapubic tenderness. Extremities: No edema, Capillary Refill Less than 3 Seconds Skin: Skin bruises, skin off/laceration from the right foot. Musculoskeletal: ROM restricted. Tenderness and fracture of right second toe Weakness of right foot at ankle joint. RLE weakness, 3+/5. No Tenderness to Palpation of Joints or Neurological: Cranial nerves II-XII grossly intact, DTR 2+/4 and Symmetrical, Neuro grossly intact Psych/Mental Status: Flat affect. Results Lab / Micro Data Result Diagrams: 01/30/21 07:10 01/30/21 07:10 Labs: Laboratory Results - last 24 hr 01/30/21 07:10: WBC 8.7, RBC 3.34 L, Hgb 10.8 L, Hct 35.0 L, MCV 104.8 H, MCH 32.3 H, MCHC 30.9 L, RDW Std Deviation 72.2 H, RDW Coeff of Sarah 19.1 H, Plt Count 204, MPV 11.9, Immature Gran % (Auto) 1.000 H, Neut % (Auto) 73.2 H, Lymph % (Auto) 9.2 L, Holt % (Auto) 15.7 H, Eos % (Auto) 0.6, Baso % (Auto) 0.3, Absolute Neuts (auto) 6.3, Absolute Lymphs (auto) 0.80 L, Nucleated RBC % 0.5 01/30/21 07:10: Sodium 148 H, Potassium 5.0, Chloride 122 H, Carbon Dioxide 13.0 L, Anion Gap 13, BUN 56 H, Creatinine 1.72 H, Estim Creat Clear Calc 20.61, Est GFR (MDRD) Af Amer 37 L, Est GFR (MDRD) Non-Af 31 L, BUN/Creatinine Ratio 32.6 H, Glucose 285 H, Calcium 10.0, Troponin I High Sens 116 H Rhythm Strip Rhythm Strip: Sinus Tach Rate: 136 Ectopy: None Radiology Impression Brain CT 01/30/21 06:50 IMPRESSION: Chronic involutional changes of the brain. Electronically Signed: Zachary Daily MD at 8:05 EST Tel , Service support , Chest X-Ray 01/30/21 06:50 IMPRESSION: Nonacute portable x-ray examination of the chest. Electronically Signed: Earl Sierra MD ([place]) at 7:52 EST , Service support , Foot X-Ray 01/30/21 06:52 IMPRESSION: Nondisplaced fracture of the proximal phalanx of the big toe There is nondisplaced fracture of the base of the proximal phalanx of the second toe. Electronically Signed: Zachary Daily MD at 8:02 EST Tel , Service support , Hip/Pelvis X-Ray 01/30/21 06:52 IMPRESSION: Degenerative arthrosis of the pelvis and hip. Electronically Signed: Zachary Daily MD at 8:05 EST Tel , Service support , Ankle X-Ray 01/30/21 07:16 IMPRESSION: Degenerative changes of the ankle. Electronically Signed: Zachary Daily MD at 8:03 EST Tel , Service support , Assessment & Plan Assessment/Plan (1) Acute on chronic renal insufficiency: (2) Ulcer of right lower extremity with fat layer exposed: (3) Closed fracture of phalanx of right second toe: QUALIFIERS: Encounter type: initial encounter Qualified Code(s): S92.501A - Displaced unspecified fracture of right lesser toe(s), initial encounter for closed fracture PLAN: 1. Acute kidney injury on CKD stage IIIb mainly prerenal from hypovolemia: Patient is being admitted on MedSurg. Patient is getting 1 L normal saline bolus and then start on Ringer lactate. Patient has hyponatremia, hyperchloremia, nonanion gap metabolic acidosis. Bicarb 13. If kidney function will not improve, will need nephrology consult, urine lites and renal ultrasound. 2. Multiple recurrent fall, right second toe proximal phalanx fracture, right foot and lower extremity weakness: Right lower extremity foot weakness seems local from fall, pain, reactive, chronic from peripheral diabetic neuropathy, diabetic carotid arteriopathy, rheumatoid arthritis: PT and OT ordered. [employer] consult for fracture. Wound care nurse and local wound care. 3. Chronic rheumatological condition: Patient had chronic rheumatoid arthritis and follows Dr. Hayes. She is on leflunomide, prednisone, golimumab. Because of acute kidney, will hold leflunomide. Golimumab to be given as an outpatient when she is on baseline health. 4. Endocrinology diseases: Diabetes mellitus type 2 complicated with diabetic nephropathy, neuropathy and vasculopathy. Hypothyroidism status post thyroid surgery: Patient home dose of Novolin 70/30 and Novolin and continued along with sliding scale Humalog insulin coverage. TSH tomorrow a.m. On levothyroxine 125 mcg daily. 5. Other chronic conditions include hypertension, decreased physical/exercise capacity on walker: PT and OT ordered. Living will/advanced directive/end of life care: Patient does have living will or advanced directive. After discussion of benefits/risks procedures involved with full code, DNR CC arrest and DNR CC, the patient and her opted for DNR-CC Arrest with no intubation Patient does not want artificial life support including intubation, tube feed, ventilator and/chest compression, central venous catheter, vasopressor and DC shock if needed Total time spent in [id number] encounter in discussion of advanced directive 16 minutes. Charges/Coding Visit Charges Inpatient E&M: 14334 Init Hosp L3 Procedures Hospitalists Procedures: 86939 Advncd Care Plan 30 Min
[2021-01-30 09:25] LABS: CPK Total, Creatine Kinase 221 U/L (26-192); Phosphorus 3.4 mg/dL (2.5-4.9)
--- NOTE | 2021-01-30 10:01 | PCS.PANDOC ---
PANDEMIC DOCUMENTATION INITIATED: Date: 11/06/2020 Time: 190
[2021-01-30 10:18] VITALS: BMI 36.1
--- NOTE | 2021-01-30 10:24 | NURSING ---
got covid vaccine J&J at [facility] - unsure of date thinking feb 2020 or mar 2020
[2021-01-30] MEDS: Lactated Ringers 1,000 ML 100 ML IV (10:48)
--- NOTE | 2021-01-30 11:45 | CASEMGMT ---
ISABELA BERNABE Face to Face with patient for initial transition planning/care coordination assessment. RN CM introduced self and role at [facility]. Patient lying in bed, alert and oriented. Patient willing to participate in assessment and is able to answer all questions appropriately. Care providers, pharmacy, and demographics verified. Patient wishes to discharge home, but is willing to go to SNF if needed for additional therapy. Patient states she has no further needs or concerns at this time. SW updated regarding possible SNF placement. CM to follow for discharge planning needs that may arise. PCP: Shiva Kerr Specialists: RA Gilberto Oseguera Pharmacy: [facility] Insurance: [employer] Prescription Benefit: yes Living Will/HPOA: yes, Haseeb Rivera LNOK: Living Arrangements: Patient lives with in a raised ranch with 2 steps to enter the home. Patient states that has been assisting with ADLs but it is getting difficult for him to help lift patient. Transportation: DME/HHC: Patient states she has shower chair, raised toilet, walker, and wheelchairs at home. Patient denies previous HHC or SNF. Disposition Plan: HHC vs SNF pending progress with therapy. Krystina ROSS, RN, CM
--- NOTE | 2021-01-30 12:12 | WOUNDNOTE ---
wound photo: right lower leg
--- NOTE | 2021-01-30 12:13 | WOUNDNOTE ---
wound photo: right foot
[2021-01-30 12:20] LABS: Bedside Glucose 162 mg/dL (70-110)
[2021-01-30] MEDS: Enoxaparin 40 MG/0.4 ML Syringe 30 MG SC (12:34)
[2021-01-30] MEDS: Atenolol 25 MG Tablet PO ×2 (12:34→22:23)
[2021-01-30] MEDS: Aspirin 81 MG TAB.CHEW PO (12:34)
[2021-01-30] MEDS: Insulin Lispro 100 UNIT/ML INSULN.PEN SC (12:35)
[2021-01-30 12:39] VITALS: BP 138/95; PULSE 120; RESP 18; TEMP 36.9; O2SAT 100
[2021-01-30] MEDS: Insulin Human 75/25 Kwickpen 40 UNIT SC (13:49)
--- NOTE | 2021-01-30 16:18 | NURSING ---
Pt states she feels chilled. temp is currently 97.5. warm blanket provided. patient denies further needs at this time.
[2021-01-30 16:45] LABS: Bedside Glucose 64 mg/dL (70-110)
--- NOTE | 2021-01-30 17:28 | ART_ITS ---
Reason For Study: PVD Procedure A bilateral lower extremity continuous wave Doppler with analog waveform analysis,segmental pressures,and ankle brachial indexes without exercise. Left Segmental Pressures Left posterior tibial artery = >254mmHg. Left dorsalis pedis artery = >254mmHg. Left digit = 73 mmHg. The left dorsalis pedis waveforms are monophasic. The left posterior tibial artery waveforms are monophasic. Right Segmental Pressures Right brachial= 109mmHg. Right calf = >254mmHg. Right posterior tibial artery = 45mmHg. The right posterior tibial artery waveforms are monophasic. Indices The right ankle brachial index by the posterior tibial artery is 0.41. The left ankle brachial index by the dorsalis pedis is NC. The left ankle brachial index by the posterior tibial artery is NC. The left digital-brachial index is 0.67. VL/Lower Ext Art Exam w/o Exercis Interpretation Summary Noncompressible right calf making into see not calculable. Right PT index abnormal at 0.41 with a monophasic waveform consistent with carolee re disease. Noncompressible left posterior tibial dorsalis pedis vessels. Abnormal left pos terior tibial dorsalis pedis monophasic Doppler waveforms consistent with severe disease. Abnormal left digital brachial index of 0.67. This is a technically limited study. Ordering Physician: Ramon Obrien Referring Physician: Adrien Kerr MD Performed By: Krystina Patel RVT
--- NOTE | 2021-01-30 17:28 | PCM.CONS.GEN ---
Assessment & Plan Assessment/Plan (1) Ulcer of right lower extremity with fat layer exposed: (2) Type II diabetes mellitus: (3) Peripheral arterial disease: (4) Closed fracture of phalanx of right second toe: QUALIFIERS: Encounter type: initial encounter Qualified Code(s): S92.501A - Displaced unspecified fracture of right lesser toe(s), initial encounter for closed fracture (5) Abrasion of multiple sites of right lower extremity: PLAN: Evaluation performed. Reviewed diagnostic data. Labs and right foot and ankle xrays reviewed. Xrays of the right foot and ankle 3 views each show significant arterial calcification noted, there are degenerative (chronic) changes to foot and ankle, there is nondisplaced proximal phalanx fracture of the 2nd toe, no other fractures noted, no dislocations noted. Ordered surgical shoe for right foot - use with all weightbearing and ambulation right foot. Ok for partial weightbearnig right foot with use of surgical shoe and walker as long as no pain. Wound care - cleanse with normal saline soln, adaptic to right ankle wound, cover with gauze and kerlix dressing - change daily. Ordered LEAS for further evaluation of lower extremity arterial flow. Will plan to debride toenails in near future - not urgent at this time. Podiatry will continue to follow, thank you for consult. HPI Consult Data Date of Consult: 01/30/21 HPI Narrative HPI Narrative: MILAGRO MEDRANO, is a 75 F who presents due to a fall she had this past Friday, she injured her right foot - found to have a nondisplaced right 2nd toe fracture, also has some abrasions on foot and right ankle area from the fall. She relates symptoms have been worsening so she can to the ER today. She was admitted. Podiatry was consulted by the medicine team. Patient also noted to have hx of PVD and has been seen by Dr. Carrizales in the past. Patient also has long thickened painful toenails which need to be reduced. [facility] Medical History (Updated 01/30/21 @ 10:46 by Abbey Avendaño) Asthma Diabetes Former smoker Hypertension Hypothyroidism Peripheral vascular disease Rheumatoid arthritis Home Medications clindamycin HCl 300 mg PO 4X/DAY 12/15/17 [History Last Taken Unknown] furosemide 40 mg PO DAILY 12/15/17 [History Last Taken Unknown] leflunomide 10 mg PO DAILY 12/15/17 [History Last Taken Unknown] levothyroxine 125 mcg PO DAILY 12/15/17 [History Last Taken Unknown] lisinopril 40 mg PO DAILY 12/15/17 [History Last Taken Unknown] lovastatin 40 mg PO DAILY 12/15/17 [History Last Taken Unknown] metformin 500 mg PO BIDCM 12/15/17 [History Last Taken Unknown] albuterol sulfate [Ventolin Hfa (SP)] 2 puff INHALATION Q4H PRN PRN 12/17/17 [History Last Taken Unknown] amlodipine [Norvasc] 10 mg PO DAILY 12/17/17 [History Last Taken Unknown] aspirin 81 mg PO DAILY 12/17/17 [History Last Taken Unknown] atenolol 50 mg PO BID 12/17/17 [History Last Taken Unknown] doxazosin 4 mg PO QHS 12/17/17 [History Last Taken Unknown] ergocalciferol (vitamin D2) [Vitamin D] 50,000 unit PO Q7D 12/17/17 [History Last Taken Unknown] golimumab [Simponi Aria] See Rx Instructions .ROUTE .COMPLEX 12/17/17 [History Last Taken Unknown] hydroxyzine HCl 25 mg PO Q4H PRN PRN 12/17/17 [History Last Taken Unknown] insulin NPH and regular human [Novolin 70/30] 40 units SUBCUT BIDAC 12/17/17 [History Last Taken Unknown] insulin NPH isoph U-100 human [Novolin N] 70 unit SQ QHS 12/17/17 [History Last Taken Unknown] prednisone 2.5 mg PO DAILY 12/17/17 [History Last Taken Unknown] timolol maleate [Timoptic-XE 0.5%] 1 drp EACH EYE BID 12/17/17 [History Last Taken Unknown] Allergy/AdvReac Type Severity Reaction Status Date / Time No Known Allergies Allergy Verified 01/30/21 07:26 Social History Smoking Status: Former smoker Physical Exam Const alert, oriented x3 and no apparent distress Extremity Extremity Narrative: There is noted to be some ecchymosis to the right forefoot, also noted to be a very superficial abrasion to the dorsal distal 2nd toe, there is an open wound to the right lateral anterior ankle - down to subcutaneous tissue, there is no cellulitis, no purulence, no necrosis, no maloder, no fluctuance, no crepitus, no visible abscess, no evidence of infection noted to the right foot. No open lesions to the left foot or ankle. There is POP to the base of the right 2nd toe c/w fracture, there is no dislocations, no displacement bilateral foot or ankle. Muscle strength decreased bilateral foot and ankle but it is intact in all planes and to major muscle groups of the foot and ankle. There is no gross instability to the foot or ankle bilateral. No evidence of acute ischemia or charcot neuroarthropathy to the foot or ankle bilateral. Pedal pulses difficult to palpate bilateral foot. CFT < 2 seconds to all toes bilateral foot. Sensation intact to light touch bilateral foot. Toenails 1,2,3,4,5 bilateral are elongated, thickened, dystrophic, incurvated with subungal debris. Lab / Micro Data Result Diagrams: 01/30/21 07:10 01/30/21 07:10 Labs: Laboratory Results - last 24 hr 01/30/21 07:10: WBC 8.7, RBC 3.34 L, Hgb 10.8 L, Hct 35.0 L, MCV 104.8 H, MCH 32.3 H, MCHC 30.9 L, RDW Std Deviation 72.2 H, RDW Coeff of Sarah 19.1 H, Plt Count 204, MPV 11.9, Immature Gran % (Auto) 1.000 H, Neut % (Auto) 73.2 H, Lymph % (Auto) 9.2 L, [place] % (Auto) 15.7 H, Eos % (Auto) 0.6, Baso % (Auto) 0.3, Absolute Neuts (auto) 6.3, Absolute Lymphs (auto) 0.80 L, Nucleated RBC % 0.5 01/30/21 07:10: Sodium 148 H, Potassium 5.0, Chloride 122 H, Carbon Dioxide 13.0 L, Anion Gap 13, BUN 56 H, Creatinine 1.72 H, Estim Creat Clear Calc 20.61, Est GFR (MDRD) Af Amer 37 L, Est GFR (MDRD) Non-Af 31 L, BUN/Creatinine Ratio 32.6 H, Glucose 285 H, Calcium 10.0, Troponin I High Sens 116 H 01/30/21 07:10: Phosphorus 3.4, Magnesium 2.0, Total Creatine Kinase 221 H 01/30/21 12:15: POC Glucose 162 H 01/30/21 16:37: POC Glucose 64 L Rhythm Strip Rhythm Strip: Sinus Tach Rate: 136 Ectopy: None Radiology Impression Brain CT 01/30/21 06:50 IMPRESSION: Chronic involutional changes of the brain. Electronically Signed: Zachary Daily MD at 8:05 EST Tel , Service support , Chest X-Ray 01/30/21 06:50 IMPRESSION: Nonacute portable x-ray examination of the chest. Electronically Signed: Earl Sierra MD ([place]) at 7:52 EST , Service support , Foot X-Ray 01/30/21 06:52 IMPRESSION: Nondisplaced fracture of the proximal phalanx of the big toe There is nondisplaced fracture of the base of the proximal phalanx of the second toe. Electronically Signed: Zachary Daily MD at 8:02 EST Tel , Service support , Hip/Pelvis X-Ray 01/30/21 06:52 IMPRESSION: Degenerative arthrosis of the pelvis and hip. Electronically Signed: Zachary Daily MD at 8:05 EST Tel , Service support , Ankle X-Ray 01/30/21 07:16 IMPRESSION: Degenerative changes of the ankle. Electronically Signed: Zachary Daily MD at 8:03 EST Tel , Service support ,
[2021-01-30] MEDS: oxyCODONE 5 MG Tablet PO ×2 (17:56→22:22)
[2021-01-30 18:00] LABS: Bedside Glucose 115 mg/dL (70-110)
[2021-01-30] MEDS: Juven (unflavored) Packet 1 PACKET PO (18:10)
--- NOTE | 2021-01-30 18:27 | WOUNDNOTE ---
small skin tear noted to the left buttock when placing patient on bedpan. small amount of bleeding noted. cleansed wound and pat dry. applied a small Mepilex dressing for protection. patient has some dry patchy areas to the right lower buttock as well. pt denies pain. will monitor.
[2021-01-30 19:30] VITALS: BP 93/71; PULSE 100; RESP 18; TEMP 36.8; O2SAT 98
[2021-01-30] MEDS: Doxazosin 4 MG Tablet PO (22:23)
[2021-01-30] MEDS: Timolol 0.5% 5ML OPTH.BTL 1 DRP EACH EYE (22:25)
[2021-01-30 22:30] LABS: Bedside Glucose 115 mg/dL (70-110)
[2021-01-31 02:00] VITALS: BP 112/41; PULSE 93; RESP 18; TEMP 37; O2SAT 95
[2021-01-31 02:45] LABS: Mucous, Urine 0 SEEN /hpf (<or=2+)
[2021-01-31 02:46] LABS: Color, Urine Yellow (Yellow); Glucose, Dipstick Normal (Normal); Ketone-Dipstick Negative (Negative); Leukocyte Esterase-Dipstick 500 /ul (Negative); Nitrite-Dipstick Negative (Negative); Occult Blood-Urine 150 /ul (Negative); Protein-Dipstick 30 mg/dl (Negative); Urine Bilirubin Dipstick Negative (Negative); Urine Clarity Sl. Cloudy (Clear); Urine Urobilinogen Normal (Normal)
[2021-01-31 02:55] LABS: Bacteria 3+ /hpf (None Seen); Red Blood Cells-Urine 0-5 SEEN /hpf (0-5); Squamous Epithelial Cells - UA 0-5 SEEN /hpf (5-10); White Blood Cells >100 SEEN /hpf (0-5)
[2021-01-31] MEDS: oxyCODONE 5 MG Tablet PO ×3 (04:55→19:39)
[2021-01-31] MEDS: Levothyroxine 125 MCG Tablet PO (04:56)
[2021-01-31 06:16] LABS: Absolute Lymphocyte Count 1.27 X10^3/uL (0.83-4.51); Absolute Neutrophil Count 3.7 X10^3/uL (2.0-7.7); Basophil# 0.03 X10^3/uL; Basophil% 0.5 % (0-1); Eosinophil# 0.12 X10^3/uL; Eosinophils% 1.9 % (0-5); Hematocrit 27.7 % (37-47); Hemoglobin 8.6 g/dL (12.0-15.0); Lymphocyte # 1.27 X10^3/ul (0.83-4.51); Lymphocyte % 20.5 % (19-41); Mean Corpuscular Hgb 32.5 pg (27.0-32.0); Mean Corpuscular Volume 104.5 fL (81-99); Mean Platelet Vol. 11.4 fl (6.2-12.0); Monocyte# 1.04 X10^3/uL; Monocyte% 16.7 % (0-10); NRBC Flagged by Analyzer 0.3 % (0-5); Neutrophil # 3.72 X10^3/uL (2.7-7.7); Neutrophil % 59.9 % (47-70); POSITIVE MORPHOLOGY YES; Platelet Count 152 K/mm3 (150-450); RBC Distribution Width CV 19.1 % (11.6-14.6); RBC Distribution Width SD 71.2 fl (35.1-43.9); Red Blood Count 2.65 M/mm3 (4.2-5.4); White Blood Count 6.2 K/mm3 (4.4-11.0)
[2021-01-31 06:19] LABS: Differential Indicated SCAN CRITERIA MET
[2021-01-31 06:32] LABS: Anisocytosis 1+; Differential Comment SCANNED
[2021-01-31 06:33] LABS: Macrocytosis 1+; Microcytosis RARE
[2021-01-31 06:36] LABS: Bedside Glucose 124 mg/dL (70-110)
[2021-01-31 06:52] LABS: Anion Gap 8 (5-15); BUN 62 mg/dL (7-18); BUN/Creat Ratio 40.5 RATIO (10-20); Calcium,Total 8.8 mg/dL (8.5-10.1); Chloride 122 mmol/L (98-107); Creatinine, Serum 1.53 mg/dL (0.55-1.02); EST Glomerular Filtration Rate 35 mL/min (>60); Est Glom Filt Rate - Afr Amer 43 mL/min (>60); Estimated Creatinine Clearance 29.03 ml/min; Glucose 116 mg/dL (74-106); Potassium 4.3 mmol/L (3.5-5.1); Sodium Level 146 mmol/L (136-145); Thyroid Stim Hormone (TSH) 0.04 uIU/mL (0.358-3.74)
[2021-01-31 07:15] VITALS: O2SAT 92
[2021-01-31 08:21] VITALS: BP 117/41; PULSE 88; RESP 18; TEMP 36.6; O2SAT 96
[2021-01-31] MEDS: Aspirin 81 MG TAB.CHEW PO (08:38)
[2021-01-31] MEDS: predniSONE 5 MG Tablet 2.5 MG PO (08:38)
[2021-01-31] MEDS: Juven (unflavored) Packet 1 PACKET PO ×2 (08:39→16:55)
[2021-01-31 08:40] LABS: Bedside Glucose 126 mg/dL (70-110)
[2021-01-31] MEDS: Atorvastatin Calcium 10 MG Tablet PO (10:43)
[2021-01-31] MEDS: Atenolol 25 MG Tablet PO ×2 (10:44→22:53)
[2021-01-31] MEDS: Timolol 0.5% 5ML OPTH.BTL 1 DRP EACH EYE ×2 (10:44→22:53)
--- NOTE | 2021-01-31 11:11 | PCM.PN.HOSP ---
Subjective Subjective No issues overnight, feels a bit better. Still has some pain in her right foot. This was evaluated by podiatry, she does have a nondisplaced proximal phalanx fracture of the second toe that they ordered a surgical shoe for. Objective Data Objective Data Vital Signs: Vital Signs Temp Pulse Resp BP Pulse Ox 97.8 F 88 18 117/41 L 96 01/31/21 08:21 01/31/21 08:21 01/31/21 08:21 01/31/21 08:21 01/31/21 08:21 Oxygen Delivery Method Room Air Weight: 199 lb 4.766 oz Body Mass Index (BMI) 36.1 Intake & Output: Intake and Output for Last 24 Hours 01/30/21 01/31/21 02/01/21 03:59 03:59 03:59 Intake Total 1405 / 1405 Output Total 250 / 250 150 / 150 Balance 1155 / 1155 -150 / -150 Lab / Micro Data Result Diagrams: 01/31/21 06:05 01/31/21 06:05 Labs: Laboratory Results - last 24 hr 01/30/21 12:15: POC Glucose 162 H 01/30/21 16:37: POC Glucose 64 L 01/30/21 17:57: POC Glucose 115 H 01/30/21 22:21: POC Glucose 115 H 01/31/21 02:25: Urine Color Yellow, Urine Clarity Sl. Cloudy, Urine pH 6.0, Ur Specific [place] 1.010, Urine Protein 30 H, Urine Glucose (UA) Normal, Urine Ketones Negative, Urine Occult Blood 150 H, Urine Nitrite Negative, Urine Bilirubin Negative, Urine Urobilinogen Normal, Ur Leukocyte Esterase 500 H, Urine RBC 0-5 SEEN, Urine WBC >100 SEEN, Ur Squamous Epith Cells 0-5 SEEN, Urine Bacteria 3+, Urine Mucus 0 SEEN 01/31/21 06:05: WBC 6.2, RBC 2.65 L, Hgb 8.6 L, Hct 27.7 L, MCV 104.5 H, MCH 32.5 H, MCHC 31.0 L, RDW Std Deviation 71.2 H, RDW Coeff of Sarah 19.1 H, Plt Count 152, MPV 11.4, Immature Gran % (Auto) 0.500, Neut % (Auto) 59.9, Lymph % (Auto) 20.5, [place] % (Auto) 16.7 H, Eos % (Auto) 1.9, Baso % (Auto) 0.5, Absolute Neuts (auto) 3.7, Absolute Lymphs (auto) 1.27, Nucleated RBC % 0.3, Differential Comment SCANNED, Anisocytosis 1+, Microcytosis RARE, Macrocytosis 1+ 01/31/21 06:05: Sodium 146 H, Potassium 4.3, Chloride 122 H, Carbon Dioxide 16.0 L, Anion Gap 8, BUN 62 H, Creatinine 1.53 H, Estim Creat Clear Calc 29.03, Est GFR (MDRD) Af Amer 43 L, Est GFR (MDRD) Non-Af 35 L, BUN/Creatinine Ratio 40.5 H, Glucose 116 H, Calcium 8.8, TSH 0.04 L 01/31/21 06:13: POC Glucose 124 H 01/31/21 08:33: POC Glucose 126 H Rhythm Strip Rhythm Strip: Sinus Tach Rate: 136 Ectopy: None Physical Exam Const alert, oriented x3 and no apparent distress General Appearance: cooperative HEENT normocephalic and moist oral mucous membranes Eyes PERRL, EOMs intact bilaterally and conjunctivae normal Neck supple and no JVD Resp normal respiratory effort, no retractions, no use of accessory muscles and clear to auscultation bilaterally Auscultation: Negative for crackles, rales, rhonchi or wheezes Cardio regular rate, regular rhythm, S1 normal heart sound, S2 normal heart sound and no murmurs GI soft to palpation, non-tender and non-distended; Negative for hepatosplenomegaly Extremity no clubbing, cyanosis or edema Extremity Narrative: Right toe pain, currently in a bandage Skin no rashes or lesions noted Neuro no focal motor deficits and no sensory deficits noted Psych affect normal Appearance: appropriate Assessment & Plan Assessment/Plan (1) Acute on chronic renal insufficiency: (2) Ulcer of right lower extremity with fat layer exposed: (3) Closed fracture of phalanx of right second toe: QUALIFIERS: Encounter type: initial encounter Qualified Code(s): S92.501A - Displaced unspecified fracture of right lesser toe(s), initial encounter for closed fracture PLAN: 1. Acute kidney injury on CKD stage IIIb mainly prerenal from hypovolemia: Patient is being admitted on MedSurg. Patient is getting 1 L normal saline bolus and then start on Ringer lactate. Patient has hyponatremia, hyperchloremia, nonanion gap metabolic acidosis. Bicarb 13. If kidney function will not improve, will need nephrology consult, urine lites and renal ultrasound. 01/31/2021: Seems to be improving, unsure as to what her baseline is. In 2015 it was normal however in 2018 she had a kidney function of 1.76 2. Multiple recurrent fall, right second toe proximal phalanx fracture, right foot and lower extremity weakness: Right lower extremity foot weakness seems local from fall, pain, reactive, chronic from peripheral diabetic neuropathy, diabetic carotid arteriopathy, rheumatoid arthritis: PT and OT ordered. Finishing Supervisor consult for fracture. Wound care nurse and local wound care. 01/31/2021: We will continue with shoe for her right ankle. She is nonweightbearing at this time however when she has the shoe she can be partially weightbearing 3. Chronic rheumatological condition: Patient had chronic rheumatoid arthritis and follows Dr. Hayes. She is on leflunomide, prednisone, golimumab. Because of acute kidney, will hold leflunomide. Golimumab to be given as an outpatient when she is on baseline health. 4. Endocrinology diseases: Diabetes mellitus type 2 complicated with diabetic nephropathy, neuropathy and vasculopathy. Hypothyroidism status post thyroid surgery: Patient home dose of Novolin 70/30 and Novolin and continued along with sliding scale Humalog insulin coverage. TSH tomorrow a.m. On levothyroxine 125 mcg daily. 5. Other chronic conditions include hypertension, decreased physical/exercise capacity on walker: PT and OT ordered. DVT: Lovenox Charges/Coding Visit Charges Inpatient E&M: 14311 Subs Hosp L2
[2021-01-31] MEDS: Insulin Lispro 100 UNIT/ML INSULN.PEN SC ×2 (12:08→22:53)
[2021-01-31] MEDS: Insulin Human 75/25 Kwickpen 40 UNIT SC (12:09)
[2021-01-31 12:16] LABS: Bedside Glucose 296 mg/dL (70-110)
[2021-01-31] MEDS: Enoxaparin 30 MG/0.3 ML Syringe SC (14:54)
--- NOTE | 2021-01-31 14:59 | CASEMGMT ---
Social Work SW met with pt to discuss discharge plans. SW woke pt and attempted to discuss progress in therapy today as pt was Max A x2 for sit to stand and Dep x2 for stand pivot. Pt falling asleep several times during conversation and SW unable to discuss. Phone call to pt and VM left requesting return call to discuss discharge plans. JENI Interiano
[2021-01-31 16:00] VITALS: BP 133/52; PULSE 85; RESP 16; TEMP 36.4; O2SAT 99
[2021-01-31] MEDS: Insulin NPH Human 100 UNITS/ML PEN 70 UNITS SC (16:56)
[2021-01-31 17:06] LABS: Bedside Glucose 145 mg/dL (70-110)
[2021-01-31 22:48] VITALS: BP 121/52; PULSE 91; RESP 18; TEMP 36.9; O2SAT 98
[2021-01-31] MEDS: Doxazosin 4 MG Tablet PO (22:53)
[2021-01-31 23:40] LABS: Bedside Glucose 202 mg/dL (70-110)
[2021-02-01 05:51] VITALS: BP 91/45; PULSE 80; RESP 18; TEMP 36.6; O2SAT 96
[2021-02-01] MEDS: Levothyroxine 125 MCG Tablet PO (06:02)
[2021-02-01 06:46] LABS: Absolute Lymphocyte Count 1.33 X10^3/uL (0.83-4.51); Absolute Neutrophil Count 3.2 X10^3/uL (2.0-7.7); Basophil# 0.02 X10^3/uL; Basophil% 0.4 % (0-1); Eosinophil# 0.16 X10^3/uL; Eosinophils% 2.8 % (0-5); Hematocrit 31.1 % (37-47); Hemoglobin 9.1 g/dL (12.0-15.0); Lymphocyte # 1.33 X10^3/ul (0.83-4.51); Lymphocyte % 23.6 % (19-41); Mean Corp Hgb Conc 29.3 g/dL (32-36); Mean Corpuscular Hgb 32.7 pg (27.0-32.0); Mean Corpuscular Volume 111.9 fL (81-99); Mean Platelet Vol. 11.8 fl (6.2-12.0); Monocyte# 0.88 X10^3/uL; Monocyte% 15.6 % (0-10); NRBC Flagged by Analyzer 0.9 % (0-5); Neutrophil % 56.7 % (47-70); POSITIVE MORPHOLOGY YES; Platelet Count 139 K/mm3 (150-450); RBC Distribution Width SD 77.7 fl (35.1-43.9); Red Blood Count 2.78 M/mm3 (4.2-5.4); White Blood Count 5.6 K/mm3 (4.4-11.0)
[2021-02-01 06:53] LABS: Differential Indicated SCAN CRITERIA MET
[2021-02-01 07:20] VITALS: O2SAT 95
[2021-02-01 07:21] LABS: Anisocytosis 2+; Differential Comment SCANNED
[2021-02-01 07:24] LABS: Anion Gap 7 (5-15); BUN 82 mg/dL (7-18); BUN/Creat Ratio 40.4 RATIO (10-20); Calcium,Total 8.8 mg/dL (8.5-10.1); Chloride 121 mmol/L (98-107); Creatinine, Serum 2.03 mg/dL (0.55-1.02); EST Glomerular Filtration Rate 25 mL/min (>60); Est Glom Filt Rate - Afr Amer 31 mL/min (>60); Estimated Creatinine Clearance 21.88 ml/min; Glucose 122 mg/dL (74-106); Potassium 4.6 mmol/L (3.5-5.1); Sodium Level 142 mmol/L (136-145)
[2021-02-01 07:37] VITALS: BP 107/50; PULSE 82; RESP 18; TEMP 36.6; O2SAT 99
[2021-02-01] MEDS: Juven (unflavored) Packet 1 PACKET PO ×2 (07:47→17:33)
[2021-02-01] MEDS: Aspirin 81 MG TAB.CHEW PO (07:47)
[2021-02-01] MEDS: Insulin Human 75/25 Kwickpen 40 UNIT SC (07:48)
[2021-02-01] MEDS: predniSONE 5 MG Tablet 2.5 MG PO (07:53)
[2021-02-01 08:00] LABS: Bedside Glucose 116 mg/dL (70-110)
--- NOTE | 2021-02-01 08:12 | PN_ITS ---
Subjective Subjective Patient was seen this morning for follow up on right 2nd toe fracture, abrasions and right ankle wound. She relates sites are feeling better. She is resting comfortably in bed, no new complaints. Objective Data Objective Data Vital Signs: Vital Signs Temp Pulse Resp BP Pulse Ox 97.8 F 82 18 107/50 L 99 02/01/21 07:37 02/01/21 07:37 02/01/21 07:37 02/01/21 07:37 02/01/21 07:37 Oxygen Delivery Method Room Air Weight: 91.036 kg Body Mass Index (BMI) 36.1 Intake & Output: Intake and Output for Last 24 Hours 01/30/21 01/31/21 02/01/21 23:59 23:59 23:59 Intake Total 1405 / 1405 400 / 400 300 / 300 Output Total 600 / 600 200 / 200 Balance 1405 / 1155 -200 / -200 100 / 100 Lab / Micro Data Result Diagrams: 02/01/21 06:30 02/01/21 06:30 Labs: Laboratory Results - last 24 hr 01/31/21 08:33: POC Glucose 126 H 01/31/21 12:04: POC Glucose 296 H 01/31/21 16:52: POC Glucose 145 H 01/31/21 22:51: POC Glucose 202 H 02/01/21 06:30: WBC 5.6, RBC 2.78 L, Hgb 9.1 L, Hct 31.1 L, MCV 111.9 H D, MCH 32.7 H, MCHC 29.3 L D, RDW Std Deviation 77.7 H, RDW Coeff of Sarah 19.0 H, Plt Count 139 L, MPV 11.8, Immature Gran % (Auto) 0.900, Neut % (Auto) 56.7, Lymph % (Auto) 23.6, [place] % (Auto) 15.6 H, Eos % (Auto) 2.8, Baso % (Auto) 0.4, Absolute Neuts (auto) 3.2, Absolute Lymphs (auto) 1.33, Nucleated RBC % 0.9, Differential Comment SCANNED, Anisocytosis 2+ 02/01/21 06:30: Sodium 142, Potassium 4.6, Chloride 121 H, Carbon Dioxide 14.0 L , Anion Gap 7, BUN 82 H, Creatinine 2.03 H, Estim Creat Clear Calc 21.88, Est GFR (MDRD) Af Amer 31 L, Est GFR (MDRD) Non-Af 25 L, BUN/Creatinine Ratio 40.4 H , Glucose 122 H, Calcium 8.8 02/01/21 07:47: POC Glucose 116 H Radiography Diagnostic Testing: Radiology Impression Extremity Arterial Study 01/30/21 17:28 Interpretation Summary Noncompressible right calf making into see not calculable. Right PT index abnormal at 0.41 with a monophasic waveform consistent with severe disease. Noncompressible left posterior tibial dorsalis pedis vessels. Abnormal left posterior tibial dorsalis pedis monophasic Doppler waveforms consistent with severe disease. Abnormal left digital brachial index of 0.67. This is a technically limited study. Ordering Physician: Ramon Obrien Referring Physician: Adrien Kerr MD Performed By: Krystina Patel RVT Rhythm Strip Rhythm Strip: Sinus Tach Rate: 136 Ectopy: None Physical Exam Const alert, oriented x3 and no apparent distress Extremity Extremity Narrative: Right foot: There is noted to be some ecchymosis to the right forefoot, also noted to be a very superficial abrasion to the dorsal distal 2nd toe and also dorsal medial 1st toe, there is an open wound to the right lateral anterior ankle - down to subcutaneous tissue - there is improvement noted, there is no cellulitis, no purulence, no necrosis, no maloder, no fluctuance, no crepitus, no visible abscess, no evidence of in fection noted to the right foot. There is POP to the base of the right 2nd toe c/w fracture, there is no dislocations, no displacement to foot or ankle. Muscle strength decreased to foot and ankle but it is intact in all planes and to major muscle groups of the foot and ankle. There is no gross instability to the foot or ankle. No evidence of acute ischemia or charcot neuroarthropathy to the foot or ankle. CFT < 2 seconds to all toes. No acute ischemia to the right foot. Assessment & Plan Assessment/Plan (1) Ulcer of right lower extremity with fat layer exposed: (2) Type II diabetes mellitus: (3) Peripheral arterial disease: (4) Closed fracture of phalanx of right second toe: QUALIFIERS: Encounter type: initial encounter Qualified Code(s): S92.501A - Displaced unspecified fracture of right lesser toe(s), initial encounter for closed fracture (5) Abrasion of multiple sites of right lower extremity: PLAN: Re-evaluation performed. Reviewed diagnostic data. Labs and right foot and ankle xrays reviewed. Xrays of the right foot and ankle 3 views each show significant arterial calcification noted, there are degenerative (chronic) changes to foot and ankle, there is nondisplaced proximal phalanx fracture of the 2nd toe, no other fractures noted, no dislocations noted. LEAS reviewed - there is noted to be severe PAD to LE bilateral. Clinically this appears to be chronic - there is no evidence of acute ischemia to the foot or ankle. Continue with surgical shoe for right foot - use with all weightbearing and ambulation right foot. Ok for partial weightbearnig right foot with use of surgical shoe and walker as long as no pain. Wound care - cleanse with normal saline soln, the apply adaptic, cover with gauze and kerlix dressing - change daily. Consult placed to Dr. Carrizales from vascular standpoint. Will plan to debride toenails in near future - not urgent at this time. Podiatry will continue to follow.
--- NOTE | 2021-02-01 09:20 | PN.HOSP_ITS ---
Subjective Subjective She still has right foot pain and states that she has some general achiness but otherwise is okay Objective Data Objective Data Vital Signs: Vital Signs Temp Pulse Resp BP Pulse Ox 97.8 F 82 18 107/50 L 99 02/01/21 07:37 02/01/21 07:37 02/01/21 07:37 02/01/21 07:37 02/01/21 07:37 Oxygen Delivery Method Room Air Weight: 200 lb 11.2 oz Body Mass Index (BMI) 36.1 Intake & Output: Intake and Output for Last 24 Hours 01/31/21 02/01/21 02/02/21 03:59 03:59 03:59 Intake Total 1405 / 1405 400 / 400 300 / 300 Output Total 250 / 250 350 / 350 200 / 200 Balance 1155 / 1155 50 / 50 100 / 100 Lab / Micro Data Result Diagrams: 02/01/21 06:30 02/01/21 06:30 Labs: Laboratory Results - last 24 hr 01/31/21 12:04: POC Glucose 296 H 01/31/21 16:52: POC Glucose 145 H 01/31/21 22:51: POC Glucose 202 H 02/01/21 06:30: WBC 5.6, RBC 2.78 L, Hgb 9.1 L, Hct 31.1 L, MCV 111.9 H D, MCH 32.7 H, MCHC 29.3 L D, RDW Std Deviation 77.7 H, RDW Coeff of Sarah 19.0 H, Plt Count 139 L, MPV 11.8, Immature Gran % (Auto) 0.900, Neut % (Auto) 56.7, Lymph % (Auto) 23.6, [place] % (Auto) 15.6 H, Eos % (Auto) 2.8, Baso % (Auto) 0.4, Absolute Neuts (auto) 3.2, Absolute Lymphs (auto) 1.33, Nucleated RBC % 0.9, Differential Comment SCANNED, Anisocytosis 2+ 02/01/21 06:30: Sodium 142, Potassium 4.6, Chloride 121 H, Carbon Dioxide 14.0 L , Anion Gap 7, BUN 82 H, Creatinine 2.03 H, Estim Creat Clear Calc 21.88, Est GFR (MDRD) Af Amer 31 L, Est GFR (MDRD) Non-Af 25 L, BUN/Creatinine Ratio 40.4 H , Glucose 122 H, Calcium 8.8 02/01/21 07:47: POC Glucose 116 H Radiography Diagnostic Testing: Radiology Impression Extremity Arterial Study 01/30/21 17:28 Interpretation Summary Noncompressible right calf making into see not calculable. Right PT index abnormal at 0.41 with a monophasic waveform consistent with s evere disease. Noncompressible left posterior tibial dorsalis pedis vessels. Abnormal left posterior tibial dorsalis pedis monophasic Doppler waveforms consistent with severe disease. Abnormal left digital brachial index of 0.67. This is a technically limited study. Ordering Physician: Ramon Obrien Referring Physician: Adrien Kerr MD Performed By: Krystina Patel RVT Rhythm Strip Rhythm Strip: Sinus Tach Rate: 136 Ectopy: None Physical Exam Const alert, oriented x3 and no apparent distress General Appearance: cooperative HEENT normocephalic and moist oral mucous membranes Eyes PERRL, EOMs intact bilaterally and conjunctivae normal Neck supple and no JVD Resp normal respiratory effort, no retractions, no use of accessory muscles and clear to auscultation bilaterally Auscultation: Negative for crackles, rales, rhonchi or wheezes Cardio regular rate, regular rhythm, S1 normal heart sound, S2 normal heart sound and no murmurs GI soft to palpation, non-tender and non-distended; Negative for hepatosplenomegaly Extremity no clubbing, cyanosis or edema Extremity Narrative: Right toe pain, currently in a bandage Skin no rashes or lesions noted Neuro no focal motor deficits and no sensory deficits noted Psych affect normal Appearance: appropriate Assessment & Plan Assessment/Plan (1) Acute on chronic renal insufficiency: (2) Ulcer of right lower extremity with fat layer exposed: (3) Closed fracture of phalanx of right second toe: QUALIFIERS: Encounter type: initial encounter Qualified Code(s): S92.501A - Displaced unspecified fracture of right lesser toe(s), initial encounter for closed fracture PLAN: 1. Acute kidney injury on CKD stage IIIb mainly prerenal from hypovolemia: Patient is being admitted on MedSurg. Patient is getting 1 L normal saline bolus and then start on Ringer lactate. Patient has hyponatremia, hyperchloremia, nonanion gap metabolic acidosis. Bicarb 13. If kidney function will not improve, will need nephrology consult, urine lites and renal ultra sound. 01/31/2021: Seems to be improving, unsure as to what her baseline is. In 2015 it was normal however in 2018 she had a kidney function of 1.76 02/01/2021: Renal function is worse today at 2.03, will continue to monitor and will hydrate gently 2. Multiple recurrent fall, right second toe proximal phalanx fracture, right foot and lower extremity weakness: Right lower extremity foot weakness seems local from fall, pain, reactive, chronic from peripheral diabetic neuropathy, diabetic carotid arteriopathy, rheumatoid arthritis: PT and OT ordered. Extractor Machine Operator consult for fracture. Wound care nurse and local wound care. 01/31/2021: We will continue with shoe for her right ankle. She is nonweightbearing at this time however when she has the shoe she can be partially weightbearing 02/01/2021: Appreciate podiatry's input. Continue with physical therapy and possible placement 3. UTI ?Urine culture is pending today ?We will start her on Rocephin and monitor for improvement 4. Chronic rheumatological condition: Patient had chronic rheumatoid arthritis and follows Dr. Hayes. She is on leflunomide, prednisone, golimumab. Because of acute kidney, will hold leflunomide. Golimumab to be given as an outpatient when she is on baseline health. 5. Endocrinology diseases: Diabetes mellitus type 2 complicated with diabetic nephropathy, neuropathy and vasculopathy. Hypothyroidism status post thyroid surgery: Patient home dose of Novolin 70/30 and Novolin and continued along with sliding scale Humalog insulin coverage. TSH tomorrow a.m. On levothyroxine 125 mcg daily. 6. Other chronic conditions include hypertension, decreased physical/exercise capacity on walker: PT and OT ordered. DVT: Lovenox Charges/Coding Visit Charges Inpatient E&M: 45262 Subs Hosp L2
[2021-02-01] MEDS: Atorvastatin Calcium 10 MG Tablet PO (10:16)
[2021-02-01] MEDS: Atenolol 25 MG Tablet PO ×2 (10:16→21:19)
[2021-02-01] MEDS: Timolol 0.5% 5ML OPTH.BTL 1 DRP EACH EYE ×2 (10:16→21:19)
[2021-02-01] MEDS: Enoxaparin 30 MG/0.3 ML Syringe SC (10:16)
[2021-02-01] MEDS: Ceftriaxone 1 GM/50 ML BAG IV (10:17)
[2021-02-01 10:21] VITALS: BP 103/51; PULSE 84; RESP 20; TEMP 36.6; O2SAT 97
[2021-02-01] MEDS: oxyCODONE 5 MG Tablet PO (11:32)
[2021-02-01] MEDS: Acetaminophen 325 MG Tablet 650 MG PO ×2 (11:33→21:20)
[2021-02-01 11:45] LABS: Bedside Glucose 128 mg/dL (70-110)
--- NOTE | 2021-02-01 12:15 | CASEMGMT ---
Addendum entered by Gita Antunez 02/01/21 13:05: Social Work SW spoke with Christy at [facility] who states pt will have a 50% copay at their facility but they can accept. SW met with pt and spouse and explained [facility] is out of network with 50% copay, [facility] would be in network with 100% coverage. Pt and spouse choosing [facility]. Phone call to Felicia at [facility] and they do have beds available. Referral faxed, will await determination. JENI Interiano Original Note: Social Work SW met with pt and spouse and introduced self and role of SW. SW reviewed therapy notes and pt and spouse are agreeable to SNF placement for short term rehab. SW provided a list fo SNF providers including quality and resource use data and consistent with the patient's preferred geographic region, medical needs and insurance network. Pt first choice is [facility] and second choice is [facility]. YANN spoke with [facility] and they will review referral and determine if pt is in network with insurance and if they can accept. Referral faxed, SW will await determination. JENI Interiano
[2021-02-01 14:19] VITALS: BP 110/42; PULSE 79; RESP 16; TEMP 36.8; O2SAT 96
[2021-02-01 15:41] LABS: Bedside Glucose 142 mg/dL (70-110)
[2021-02-01] MEDS: Insulin NPH Human 100 UNITS/ML PEN 70 UNITS SC (17:28)
[2021-02-01 19:42] VITALS: BP 104/57; PULSE 77; RESP 16; TEMP 36.8; O2SAT 97
[2021-02-01] MEDS: Doxazosin 4 MG Tablet PO (21:19)
[2021-02-01 21:25] LABS: Bedside Glucose 139 mg/dL (70-110)
[2021-02-02 03:15] VITALS: BP 101/48; PULSE 79; RESP 16; TEMP 36.7; O2SAT 95
[2021-02-02] MEDS: Acetaminophen 325 MG Tablet 650 MG PO (03:21)
[2021-02-02] MEDS: Levothyroxine 125 MCG Tablet PO (05:49)
[2021-02-02] MEDS: oxyCODONE 5 MG Tablet PO ×2 (05:49→19:02)
[2021-02-02 06:51] LABS: Bedside Glucose 92 mg/dL (70-110)
[2021-02-02 06:59] LABS: Anion Gap 9 (5-15); BUN 91 mg/dL (7-18); BUN/Creat Ratio 51.1 RATIO (10-20); Calcium,Total 8.8 mg/dL (8.5-10.1); Chloride 118 mmol/L (98-107); Creatinine, Serum 1.78 mg/dL (0.55-1.02); EST Glomerular Filtration Rate 30 mL/min (>60); Est Glom Filt Rate - Afr Amer 36 mL/min (>60); Estimated Creatinine Clearance 24.95 ml/min; Glucose 97 mg/dL (74-106); Potassium 4.3 mmol/L (3.5-5.1); Sodium Level 144 mmol/L (136-145)
[2021-02-02 08:15] LABS: Bedside Glucose 85 mg/dL (70-110)
[2021-02-02 08:18] VITALS: BP 114/49; PULSE 94; RESP 18; TEMP 36.7; O2SAT 95
[2021-02-02] MEDS: Aspirin 81 MG TAB.CHEW PO (08:23)
[2021-02-02] MEDS: Juven (unflavored) Packet 1 PACKET PO ×2 (08:23→17:26)
[2021-02-02] MEDS: predniSONE 5 MG Tablet 2.5 MG PO (08:23)
[2021-02-02] MEDS: Enoxaparin 30 MG/0.3 ML Syringe SC (08:24)
[2021-02-02] MEDS: Atorvastatin Calcium 10 MG Tablet PO (08:24)
[2021-02-02] MEDS: Atenolol 25 MG Tablet PO ×2 (08:26→23:36)
[2021-02-02] MEDS: Timolol 0.5% 5ML OPTH.BTL 1 DRP EACH EYE ×2 (08:26→23:36)
--- NOTE | 2021-02-02 09:05 | PN.HOSP_ITS ---
Subjective Subjective Doing well still has some achiness in her right foot but otherwise is feeling better than she did yesterday. Objective Data Objective Data Vital Signs: Vital Signs Temp Pulse Resp BP Pulse Ox 98.0 F 94 18 114/49 L 95 02/02/21 08:18 02/02/21 08:18 02/02/21 08:18 02/02/21 08:18 02/02/21 08:18 Oxygen Delivery Method Room Air Weight: 208 lb 15.971 oz Body Mass Index (BMI) 36.1 Intake & Output: Intake and Output for Last 24 Hours 02/01/21 02/02/21 02/03/21 03:59 03:59 03:59 Intake Total 400 / 400 670 / 670 120 / 120 Output Total 350 / 350 650 / 650 50 / 50 Balance 50 / 50 70 / 70 Lab / Micro Data Result Diagrams: 02/01/21 06:30 02/02/21 06:22 Labs: Laboratory Results - last 24 hr 02/01/21 11:35: POC Glucose 128 H 02/01/21 15:32: POC Glucose 142 H 02/01/21 21:16: POC Glucose 139 H 02/02/21 06:22: Sodium 144, Potassium 4.3, Chloride 118 H, Carbon Dioxide 17.0 L , Anion Gap 9, BUN 91 H, Creatinine 1.78 H, Estim Creat Clear Calc 24.95, Est GFR (MDRD) Af Amer 36 L, Est GFR (MDRD) Non-Af 30 L, BUN/Creatinine Ratio 51.1 H , Glucose 97, Calcium 8.8 02/02/21 06:38: POC Glucose 92 02/02/21 08:08: POC Glucose 85 Rhythm Strip Rhythm Strip: Sinus Tach Rate: 136 Ectopy: None Physical Exam Const alert, oriented x3 and no apparent distress General Appearance: cooperative HEENT normocephalic and moist oral mucous membranes Eyes PERRL, EOMs intact bilaterally and conjunctivae normal Neck supple and no JVD Resp normal respiratory effort, no retractions, no use of accessory muscles and clear to auscultation bilaterally Auscultation: Negative for crackles, rales, rhonchi or wheezes Cardio regular rate, regular rhythm, S1 normal heart sound, S2 normal heart sound and no murmurs GI soft to palpation, non-tender and non-distended; Negative for hepatosplenomegaly Extremity no clubbing, cyanosis or edema Extremity Narrative: Right toe pain, currently in a bandage Skin no rashes or lesions noted Neuro no focal motor deficits and no sensory deficits noted Psych affect normal Appearance: appropriate Assessment & Plan Assessment/Plan (1) Acute on chronic renal insufficiency: (2) Ulcer of right lower extremity with fat layer exposed: (3) Closed fracture of phalanx of right second toe: QUALIFIERS: Encounter type: initial encounter Qualified Code(s): S92.501A - Displaced unspecified fracture of right lesser toe(s), initial encounter for closed fracture PLAN: 1. Acute kidney injury on CKD stage IIIb mainly prerenal from hypovolemia: Patient is being admitted on MedSurg. Patient is getting 1 L normal saline bolus and then start on Ringer lactate. Patient has hyponatremia, hyperchloremia, nonanion gap metabolic acidosis. Bicarb 13. If kidney function will not improve, will need nephrology consult, urine lites and renal ultrasound. 01/31/2021: Seems to be improving, unsure as to what her baseline is. In 2014 it was normal however in 2018 she had a kidney function of 1.76 02/01/2021: Renal function is worse today at 2.03, will continue to monitor and will hydrate gently 02/02/2021: Renal function is improving we will monitor 2. Multiple recurrent fall, right second toe proximal phalanx fracture, right foot and lower extremity weakness: Right lower extremity foot weakness seems local from fall, pain, reactive, chronic from peripheral diabetic neuropathy, diabetic carotid arteriopathy, rheumatoid arthritis: PT and OT ordered. Clerical Production Worker consult for fracture. Wound care nurse and local wound care. 01/31/2021: We will continue with shoe for her right ankle. She is nonweightbearing at this time however when she has the shoe she can be partially weightbearing 02/01/2021: Appreciate podiatry's input. Continue with physical therapy and possible placement 3. UTI ?Urine culture is pending ?We will start her on Rocephin and monitor for improvement 4. Chronic rheumatological condition: Patient had chronic rheumatoid arthritis and follows Dr. Hayes. She is on leflunomide, prednisone, golimumab. Because of acute kidney, will hold leflunomide. Golimumab to be given as an outpatient when she is on baseline health. 5. Endocrinology diseases: Diabetes mellitus type 2 complicated with diabetic nephropathy, neuropathy and vasculopathy. Hypothyroidism status post thyroid surgery: Patient home dose of Novolin 70/30 and Novolin and continued along with sliding scale Humalog insulin coverage. TSH tomorrow a.m. On levothyroxine 125 mcg daily. 6. Other chronic conditions include hypertension, decreased physical/exercise capacity on walker: PT and OT ordered. DVT: Lovenox Charges/Coding Visit Charges Inpatient E&M: 11861 Subs Hosp L2
--- NOTE | 2021-02-02 09:50 | CASEMGMT ---
Addendum entered by Gita Antunez 02/02/21 15:47: Social Work Felicia from [facility] called with questions regarding medication Golimumab as they cannot accept pt on this medication. YANN placed call to Dr. Pineda's office and spoke with nurse Shannon. Pt cannot receive this medication while she has an open wound or while she is ill. Pt currently has both therefore medication is contraindicated for near future. Felicia at [facility] updated and now [facility] can accept pt. Precert is to be started, clinical updates faxed. Pt and updated that [facility] can accept and precert is pending. Plan: [facility], pending insurance precert JENI Interiano Original Note: Social Work YANN spoke with Felicia at [facility]. Felicia has followup questions prior to accepting pt. Questions answered, and Felicia states she will get back with this YANN with determination. JENI Interiano
[2021-02-02] MEDS: Ceftriaxone 1 GM/50 ML BAG IV (11:30)
[2021-02-02] MEDS: 0.9% Saline Lock 10 ML Syringe IV (11:31)
[2021-02-02 11:46] LABS: Bedside Glucose 128 mg/dL (70-110)
[2021-02-02] MEDS: Nystatin Powder 15gm Bottle 1 APPLIC TOPICAL ×2 (12:55→23:35)
[2021-02-02] MEDS: Insulin Human 75/25 Kwickpen 30 UNIT SC (12:57)
[2021-02-02 14:00] VITALS: BP 106/48; PULSE 91; RESP 16; TEMP 36.5; O2SAT 99
[2021-02-02 16:36] LABS: Bedside Glucose 132 mg/dL (70-110)
[2021-02-02] MEDS: Insulin NPH Human 100 UNITS/ML PEN 50 UNITS SC (17:25)
[2021-02-02 23:26] VITALS: BP 120/68; PULSE 99; RESP 20; TEMP 37.1; O2SAT 94
[2021-02-02] MEDS: Doxazosin 4 MG Tablet PO (23:34)
[2021-02-02] MEDS: Insulin Lispro 100 UNIT/ML INSULN.PEN SC (23:35)
[2021-02-02 23:41] LABS: Bedside Glucose 161 mg/dL (70-110)
[2021-02-03] MEDS: Levothyroxine 125 MCG Tablet PO (06:33)
[2021-02-03] MEDS: 0.9% Saline Lock 10 ML Syringe IV (06:38)
[2021-02-03 06:39] VITALS: BP 142/87; PULSE 88; RESP 18; TEMP 36.3; O2SAT 98
[2021-02-03 06:46] LABS: Bedside Glucose 80 mg/dL (70-110)
[2021-02-03 08:06] LABS: Bedside Glucose 96 mg/dL (70-110)
[2021-02-03] MEDS: Aspirin 81 MG TAB.CHEW PO (09:19)
[2021-02-03] MEDS: Insulin Human 75/25 Kwickpen 30 UNIT SC ×2 (09:20→12:01)
[2021-02-03] MEDS: predniSONE 5 MG Tablet 2.5 MG PO (09:20)
[2021-02-03] MEDS: Juven (unflavored) Packet 1 PACKET PO (09:20)
[2021-02-03] MEDS: Atorvastatin Calcium 10 MG Tablet PO (09:21)
[2021-02-03] MEDS: Enoxaparin 30 MG/0.3 ML Syringe SC (09:21)
[2021-02-03] MEDS: Nystatin Powder 15gm Bottle 1 APPLIC TOPICAL (09:22)
[2021-02-03] MEDS: Ceftriaxone 1 GM/50 ML BAG IV (09:22)
[2021-02-03] MEDS: Atenolol 25 MG Tablet PO (09:22)
[2021-02-03] MEDS: Timolol 0.5% 5ML OPTH.BTL 1 DRP EACH EYE (09:23)
[2021-02-03 09:39] LABS: Absolute Lymphocyte Count 0.87 X10^3/uL (0.83-4.51); Absolute Neutrophil Count 3.3 X10^3/uL (2.0-7.7); Basophil# 0.03 X10^3/uL; Basophil% 0.6 % (0-1); Eosinophil# 0.12 X10^3/uL; Eosinophils% 2.3 % (0-5); Hematocrit 30.1 % (37-47); Hemoglobin 9.2 g/dL (12.0-15.0); Lymphocyte # 0.87 X10^3/ul (0.83-4.51); Lymphocyte % 16.6 % (19-41); Mean Corp Hgb Conc 30.6 g/dL (32-36); Mean Corpuscular Hgb 32.1 pg (27.0-32.0); Mean Corpuscular Volume 104.9 fL (81-99); Mean Platelet Vol. 11.9 fl (6.2-12.0); Monocyte# 0.85 X10^3/uL; Monocyte% 16.2 % (0-10); NRBC Flagged by Analyzer 0.4 % (0-5); Neutrophil # 3.34 X10^3/uL (2.7-7.7); Neutrophil % 63.5 % (47-70); POSITIVE MORPHOLOGY YES; Platelet Count 169 K/mm3 (150-450); RBC Distribution Width CV 17.9 % (11.6-14.6); RBC Distribution Width SD 68.4 fl (35.1-43.9); Red Blood Count 2.87 M/mm3 (4.2-5.4); White Blood Count 5.3 K/mm3 (4.4-11.0)
[2021-02-03 09:44] LABS: Differential Indicated SCAN CRITERIA MET
[2021-02-03 10:04] LABS: Anion Gap 8 (5-15); BUN 85 mg/dL (7-18); BUN/Creat Ratio 61.6 RATIO (10-20); Calcium,Total 9.4 mg/dL (8.5-10.1); Chloride 122 mmol/L (98-107); Creatinine, Serum 1.38 mg/dL (0.55-1.02); EST Glomerular Filtration Rate 40 mL/min (>60); Est Glom Filt Rate - Afr Amer 48 mL/min (>60); Estimated Creatinine Clearance 32.18 ml/min; Glucose 85 mg/dL (74-106); Potassium 4.4 mmol/L (3.5-5.1); Sodium Level 146 mmol/L (136-145)
[2021-02-03 10:17] LABS: Anisocytosis 2+; Differential Comment SCANNED; Macrocytosis 2+; Polychromasia 1+
--- NOTE | 2021-02-03 10:23 | TREXTCAR_ITS ---
Diet 01/30/21 09:54 Diet: Consistent Carb - Calorie Controlled Food consistency:: Easy to Chew Liquid Consistency:: Regular/Thin Dietary Modifications:: Cardiac / Heart Healthy Sodium Restricted Diet Comments: soft foods that are [id number]; pt forgot dentures at home How many daily calories?: 1800 calorie Routine Orders/Code Status Routine Lab Work: CBC and BMP Code Status: DNRCC-A Wound(s) right abernathy: Wound Type: open blister Dressing Change: Adaptic right 2nd toe: Wound Type: dry abrasion Dressing Change: Dry Sterile Dressing left buttock: Wound Type: shearing Dressing Change: applied Mepilex right buttocks: Wound Type: open areas Therapies Weight Bearing: Partial weight bearing (Right foot if no pain and wearing surgical shoe) Physical Therapy: Eval and Treat Occupational Therapy: Eval and Treat Allergies/Procedures Done in Hospital Allergies No Known Allergies Allergy (Verified 01/30/21 07:26) Procedures: - (MARLEN) Type of Care/Length of Stay Estimated LOS: Convalescent Care Less Than 30 days Type of Care Needed: Skilled Rehab Potential: Fair Prognosis: Fair Additional Orders/Day of Discharge Day of Discharge: 02/03/21 Dietary and Speech Recommendations Dietitian Recommendations/Changes: Will adjust diet to 1800 calorie; consistent carbohydrate; cardiac/sodium-restricted diet; pt needs [id number]/soft foods due to edentulous state. Will add Juventino BID w/ medpass for wound healing. Glucerna shake as needed if PO fails at meals; will defer for now. Discharge Plan Admission Admit Date/Time: 01/30/21 08:08 Attending Provider: Andrew Roberts Primary Care Provider: Adrien Kerr Consulting Providers: Ramon Obrien ; Ilia Carrizales Discharge Orders/Prescriptions Prescriptions: New atenolol 25 mg Tablet 25 mg PO BID Qty: 0 RF: 0 cefdinir 300 mg capsule 300 mg PO Q12H 3 Days Qty: 6 RF: 0 oxycodone 5 mg Tablet 5 mg PO Q4H PRN PRN (Reason: Pain Score 4-5) 1 Days Qty: 5 RF: 0 Continued prednisone 2.5 MG tablet 2.5 mg PO DAILY RF: 0 doxazosin 4 MG tablet 4 mg PO QHS RF: 0 aspirin 81 MG tablet,chewable 81 mg PO DAILY RF: 0 hydroxyzine HCl 25 MG tablet 25 mg PO Q4H PRN PRN (Reason: Itching) RF: 0 ergocalciferol (vitamin D2) [Vitamin D2] 50,000 UNIT capsule 50,000 unit PO Q7D RF: 0 albuterol sulfate [Ventolin HFA] 1 INHALER inhaler 2 puff inhalation Q4H PRN PRN (Reason: Wheezing) RF: 0 timolol maleate [Timoptic-XE] 1 DROP gel forming solution 1 drp Each Eye BID RF: 0 Simponi ARIA 50 MG/4 ML solution See Rx Instructions .ROUTE .COMPLEX RF: 0 metformin 500 MG tablet 500 mg PO BIDCM RF: 0 leflunomide 10 MG tablet 10 mg PO DAILY RF: 0 levothyroxine 125 MCG tablet 125 mcg PO DAILY RF: 0 lovastatin 20 MG tablet 40 mg PO DAILY RF: 0 Changed lisinopril 20 MG tablet 20 mg PO DAILY Qty: 0 RF: 0 Novolin 70/30 U-100 Insulin 100 UNITS/ML suspension 30 unit subcut BIDAC Qty: 0 RF: 0 amlodipine [Norvasc] 10 MG tablet 5 mg PO DAILY Qty: 0 RF: 0 Novolin N NPH U-100 Insulin 100 UNIT/ML suspension 50 unit SQ QHS Qty: 0 RF: 0 Held furosemide 40 MG tablet 40 mg PO DAILY RF: 0 Hold Instructions: Resume on 02/05/21. Discontinued atenolol 50 MG tablet 50 mg PO BID RF: 0 clindamycin HCl 300 MG capsule 300 mg PO 4X/DAY RF: 0 Referrals / Follow Up: Ilia Carrizales MD [STAFF PHYSICIAN] - Within 1 Month Adrien Kerr MD [Primary Care Provider] - Within 1 Week Disposition Disposition (needs filled in before D/C Order can be placed): Longterm Facility
--- NOTE | 2021-02-03 11:03 | PCM.DC.SUM ---
Providers Date of Admission: 01/30/21 Primary Care Physician: Dr. Adrien Kerr MD Consultations 01/30/21 09:54 Consult: Onc/Wound/health management consultant Routine Comment: Reason for Consult:: Right foot abrasion Consult: Podiatry Routine Consulting Provider: Ramon Obrien Reason for Consult: right 2nd toe fracture EMERGENT Consult: No MD Notified: Yes Date Notified: 01/30/21 Time Notified: 09:05 Method of Notification: via phone-message left 01/31/21 19:17 Consult: Vascular Surgery Routine Consulting Provider: Ilia Carrizales Reason for Consult: PAD, pain, wounds EMERGENT Consult: No Notified: Yes Date Notified: 01/31/21 Time Notified: 19:17 Method of Notification: Text Reason For Visit: NUMBNESS OF LEFT LEG Medications at Discharge Home Medications furosemide 40 mg PO DAILY 12/15/17 leflunomide 10 mg PO DAILY 12/15/17 levothyroxine 125 mcg PO DAILY 12/15/17 lovastatin 40 mg PO DAILY 12/15/17 metformin 500 mg PO BIDCM 12/15/17 Simponi ARIA See Rx Instructions .ROUTE .COMPLEX 12/17/17 albuterol sulfate [Ventolin HFA] 2 puff INHALATION Q4H PRN PRN 12/17/17 aspirin 81 mg PO DAILY 12/17/17 doxazosin 4 mg PO QHS 12/17/17 ergocalciferol (vitamin D2) [Vitamin D2] 50,000 unit PO Q7D 12/17/17 hydroxyzine HCl 25 mg PO Q4H PRN PRN 12/17/17 prednisone 2.5 mg PO DAILY 12/17/17 timolol maleate [Timoptic-XE] 1 drp EACH EYE BID 12/17/17 Novolin 70/30 U-100 Insulin 30 unit SUBCUT BIDAC #0 ml 02/03/21 Novolin N NPH U-100 Insulin 50 unit SQ QHS #0 ml 02/03/21 amlodipine [Norvasc] 5 mg PO DAILY #0 tab 02/03/21 atenolol 25 mg PO BID #0 tab 02/03/21 cefdinir 300 mg PO Q12H 3 Days #6 cap 02/03/21 lisinopril 20 mg PO DAILY #0 tab 02/03/21 oxycodone 5 mg PO Q4H PRN PRN 1 Days #5 tab 02/03/21 Hospital Course Operations None Procedures - (MARLEN) Summary of Care Provided Minutes Spent on Discharge: 42 Hospital Course: Per HPI: MILAGRO MEDRANO, is a 75 F with history of protracted rheumatoid arthritis, peripheral vascular disease on Biologics was brought to ED for fall 2 times in last 1 week, right foot and leg weakness ongoing for last 2 weeks, numbness of right foot chronic and generalized weakness and dehydration. Patient fell on her back. Mild left paraspinal muscle pain otherwise no bladder retention, fecal incontinence or signs or symptoms concerning of cauda equina syndrome or stroke. Denies fever or chills. Patient also has high creatinine 1.72.8 similar 1.76 in November 2017. BUN elevated. Sodium, chloride high, bicarb 13, anion gap 13. Isolated troponin 116 with patient does not have chest pain or shortness of breath. Patient twelve-lead EKG shows sinus tachycardia 136 bpm, QTC 454 ms. Low voltage QRS complexes. Patient vitals in the ER heart rate 142/min, BP, RR and pulse ox in normal range. Patient has bruise, skin laceration of right foot and toes Hospital Course: 1. Acute kidney injury on CKD stage IIIb mainly prerenal from hypovolemia: Patient is [facility]. Patient is getting 1 L normal saline bolus and then start on Ringer lactate. Patient has hyponatremia, hyperchloremia, nonanion gap metabolic acidosis. Bicarb 13. If kidney function will not improve, will need nephrology consult, urine lites and renal ultrasound. 01/31/2021: Seems to be improving, unsure as to what her baseline is. In 2014 it was normal however in 2018 she had a kidney function of 1.76 02/01/2021: Renal function is worse today at 2.03, will continue to monitor and will hydrate gently 02/02/2021: Renal function is improving we will monitor 02/03/2021: Creatinine today on the day of discharge is 1.38 2. Multiple recurrent fall, right second toe proximal phalanx fracture, right foot and lower extremity weakness: Right lower extremity foot weakness seems local from fall, pain, reactive, chronic from peripheral diabetic neuropathy, diabetic carotid arteriopathy, rheumatoid arthritis: PT and OT ordered. Poultry Pathologist consult for fracture. Wound care nurse and local wound care. 01/31/2021: We will continue with shoe for her right ankle. She is nonweightbearing at this time however when she has the shoe she can be partially weightbearing 02/01/2021: Appreciate podiatry's input. Continue with physical therapy and possible placement 02/03/2021: Continue with the surgical shoe and weightbearing as tolerated unless there is pain. Discussed with her the plan for discharge today to [facility] for physical therapy, she expressed understanding of the risks and benefits of discharge and would like to be discharged today. She is feeling a little bit achy today but this seems to wax and wane her foot is doing the same and she is being treated for her UTI. 3. UTI due to pansensitive E. coli ?Urine culture with pansensitive E. coli ?She has received 3 days of Rocephin and will continue with 3 more days of cefdinir on discharge 4. Chronic rheumatological condition: Patient had chronic rheumatoid arthritis and follows Dr. Hayes. She is on leflunomide, prednisone, golimumab. Because of acute kidney, will hold leflunomide. Golimumab to be given as an outpatient when she is on baseline health. 02/03/2021: This is likely the cause of her achiness secondary to holding her leflunomide. This can be continued on discharge 5. Endocrinology diseases: Diabetes mellitus type 2 complicated with diabetic nephropathy, neuropathy and vasculopathy. Hypothyroidism status post thyroid surgery: Patient home dose of Novolin 70/30 and Novolin and continued along with sliding scale Humalog insulin coverage. TSH tomorrow a.m. On levothyroxine 125 mcg daily. 02/03/2021: Her blood sugars have been on the lower end secondary to having an appropriate diet therefore her insulin dosing was decreased to 30 units twice daily of her Novolin 70/30 insulin 50 units at night of her NPH 6. Other chronic conditions include hypertension, decreased physical/exercise capacity on walker/PVD: PT and OT ordered. 02/03/2021: Given her kidney disease I elected to hold her Lasix for a few more days and I reduced the dosing of her lisinopril to 20 mg daily and I decreased her Norvasc to 5 mg daily. Also her atenolol was reduced to 25 mg p.o. twice daily, we also recommend she follow-up with vascular surgery as an outpatient to address her ABIs Physical Exam Const alert, oriented x3 and no apparent distress General Appearance: cooperative HEENT normocephalic and moist oral mucous membranes Eyes PERRL, EOMs intact bilaterally and conjunctivae normal Neck supple and no JVD Resp normal respiratory effort, no retractions, no use of accessory muscles and clear to auscultation bilaterally Auscultation: Negative for crackles, rales, rhonchi or wheezes Cardio regular rate, regular rhythm, S1 normal heart sound, S2 normal heart sound and no murmurs GI soft to palpation, non-tender and non-distended; Negative for hepatosplenomegaly Extremity no clubbing, cyanosis or edema Extremity Narrative: Right toe pain, currently in a bandage Skin no rashes or lesions noted Neuro no focal motor deficits and no sensory deficits noted Psych affect normal Appearance: appropriate Weight / BMI Weight Weight: 209 lb 7.026 oz Body Mass Index (BMI) 36.1 ABG / Lab / Microbiology Data Result Diagrams: 02/03/21 09:00 02/03/21 09:00 Laboratory: Laboratory Results - last 24 hr 02/02/21 11:36: POC Glucose 128 H 02/02/21 16:15: POC Glucose 132 H 02/02/21 23:31: POC Glucose 161 H 02/03/21 06:32: POC Glucose 80 02/03/21 08:00: POC Glucose 96 02/03/21 09:00: WBC 5.3, RBC 2.87 L, Hgb 9.2 L, Hct 30.1 L, MCV 104.9 H D, MCH 32.1 H, MCHC 30.6 L, RDW Std Deviation 68.4 H, RDW Coeff of Sarah 17.9 H, Plt Count 169, MPV 11.9, Immature Gran % (Auto) 0.800, Neut % (Auto) 63.5, Lymph % (Auto) 16.6 L, Hitchcock % (Auto) 16.2 H, Eos % (Auto) 2.3, Baso % (Auto) 0.6, Absolute Neuts (auto) 3.3, Absolute Lymphs (auto) 0.87, Nucleated RBC % 0.4, Differential Comment SCANNED, Polychromasia 1+, Anisocytosis 2+, Macrocytosis 2+ 02/03/21 09:00: Sodium 146 H, Potassium 4.4, Chloride 122 H, Carbon Dioxide 16.0 L, Anion Gap 8, BUN 85 H, Creatinine 1.38 H, Estim Creat Clear Calc 32.18, Est GFR (MDRD) Af Amer 48 L, Est GFR (MDRD) Non-Af 40 L, BUN/Creatinine Ratio 61.6 H, Glucose 85, Calcium 9.4 Microbiology: Microbiology 01/31/21 02:25 Urine, Random Urine Culture - Final Presumptive E. coli 02/02/21 11:20 Stool C. difficile DNA Amplification - Final Meaningful Use Info Meaningful Use Diagnoses (Choose all that apply): None applicable Discharge Plan Admission Admit Date/Time: 01/30/21 08:08 Attending Provider: Andrew Roberts Primary Care Provider: Adrien Kerr Consulting Providers: Ramon Obrien ; Ilia Carrizales Discharge Orders/Prescriptions Prescriptions: New atenolol 25 mg Tablet 25 mg PO BID Qty: 0 RF: 0 cefdinir 300 mg capsule 300 mg PO Q12H 3 Days Qty: 6 RF: 0 oxycodone 5 mg Tablet 5 mg PO Q4H PRN PRN (Reason: Pain Score 4-5) 1 Days Qty: 5 RF: 0 Continued prednisone 2.5 MG tablet 2.5 mg PO DAILY RF: 0 doxazosin 4 MG tablet 4 mg PO QHS RF: 0 aspirin 81 MG tablet,chewable 81 mg PO DAILY RF: 0 hydroxyzine HCl 25 MG tablet 25 mg PO Q4H PRN PRN (Reason: Itching) RF: 0 ergocalciferol (vitamin D2) [Vitamin D2] 50,000 UNIT capsule 50,000 unit PO Q7D RF: 0 albuterol sulfate [Ventolin HFA] 1 INHALER inhaler 2 puff inhalation Q4H PRN PRN (Reason: Wheezing) RF: 0 timolol maleate [Timoptic-XE] 1 DROP gel forming solution 1 drp Each Eye BID RF: 0 Simponi ARIA 50 MG/4 ML solution See Rx Instructions .ROUTE .COMPLEX RF: 0 metformin 500 MG tablet 500 mg PO BIDCM RF: 0 leflunomide 10 MG tablet 10 mg PO DAILY RF: 0 levothyroxine 125 MCG tablet 125 mcg PO DAILY RF: 0 lovastatin 20 MG tablet 40 mg PO DAILY RF: 0 Changed lisinopril 20 MG tablet 20 mg PO DAILY Qty: 0 RF: 0 Novolin 70/30 U-100 Insulin 100 UNITS/ML suspension 30 unit subcut BIDAC Qty: 0 RF: 0 amlodipine [Norvasc] 10 MG tablet 5 mg PO DAILY Qty: 0 RF: 0 Novolin N NPH U-100 Insulin 100 UNIT/ML suspension 50 unit SQ QHS Qty: 0 RF: 0 Held furosemide 40 MG tablet 40 mg PO DAILY RF: 0 Hold Instructions: Resume on 02/05/21. Discontinued atenolol 50 MG tablet 50 mg PO BID RF: 0 clindamycin HCl 300 MG capsule 300 mg PO 4X/DAY RF: 0 Referrals / Follow Up: Ilia Carrizales MD [STAFF PHYSICIAN] - Within 1 Month Adrien Kerr MD [Primary Care Provider] - Within 1 Week Disposition Disposition (needs filled in before D/C Order can be placed): [facility] Charges/Coding Visit Charges Inpatient E&M: 49404 Disch Hosp
[2021-02-03] MEDS: Acetaminophen 325 MG Tablet 650 MG PO (11:06)
--- NOTE | 2021-02-03 11:22 | CM.ED ---
YANN Note YANN was advised by the [employer] Machine Tender that patient's precert was approved. YANN attached transfer summary and discharge summary to ROBERT and Robert completed. Patient discharged to [facility]. Sia CEHN
[2021-02-03] MEDS: Insulin Lispro 100 UNIT/ML INSULN.PEN SC (12:00)
[2021-02-03 12:06] LABS: Bedside Glucose 153 mg/dL (70-110)
[2021-02-03 12:17] VITALS: BP 123/57; PULSE 87; RESP 16; TEMP 36.9; O2SAT 99
== END 2021-02-03 14:20 | disposition skilled nursing facility (03) | DRG 683 ==
LOC: ED 08:01 → PCU 08:35 → MS2 01-31 01:37
PROVIDERS: Emergency Medicine; Admitting Provider Internal Medicine; Emergency Provider Emergency Medicine; PCP Family Medicine; Visit Provider Family Medicine
DX: N17.9 Acute kidney failure, unspecified (principal); N39.0 Urinary tract infection, site not specified; L97.912 Non-pressure chronic ulcer of unspecified part of right lower leg with fat layer exposed; Z68.41 Body mass index [BMI] 40.0-44.9, adult; E87.1 Hypo-osmolality and hyponatremia; E86.0 Dehydration; E86.1 Hypovolemia; B96.20 Unspecified Escherichia coli [E. coli] as the cause of diseases classified elsewhere; S92.514A Nondisplaced fracture of proximal phalanx of right lesser toe(s), initial encounter for closed fracture; S90.811A Abrasion, right foot, initial encounter; S90.511A Abrasion, right ankle, initial encounter; W19.XXXA Unspecified fall, initial encounter; Z91.81 History of falling; Y93.9 Activity, unspecified; Y92.9 Unspecified place or not applicable; M19.90 Unspecified osteoarthritis, unspecified site; M06.9 Rheumatoid arthritis, unspecified; D64.9 Anemia, unspecified; E03.9 Hypothyroidism, unspecified; I12.9 Hypertensive chronic kidney disease with stage 1 through stage 4 chronic kidney disease, or unspecified chronic kidney disease; E11.22 Type 2 diabetes mellitus with diabetic chronic kidney disease; N18.32 Chronic kidney disease, stage 3b; E11.42 Type 2 diabetes mellitus with diabetic polyneuropathy; R62.7 Adult failure to thrive; E11.51 Type 2 diabetes mellitus with diabetic peripheral angiopathy without gangrene; E66.9 Obesity, unspecified; Z68.36 Body mass index [BMI] 36.0-36.9, adult; E87.8 Other disorders of electrolyte and fluid balance, not elsewhere classified; J45.909 Unspecified asthma, uncomplicated; Z66 Do not resuscitate; Z79.52 Long term (current) use of systemic steroids; Z79.4 Long term (current) use of insulin; Z79.899 Other long term (current) drug therapy; Z87.891 Personal history of nicotine dependence; Z23 Encounter for immunization
CPT/HCPCS: 36415; 70450; 71045; 73502; 73610; 73630; 80048; 81001; 82550; 82962; 83735; 84100; 84443; 84484; 85025; 87086; 87088; 87186; 87426; 87493; 90715; 93005; 93923; 97110; 97163; 97167; 97530; 97535; 97802; 99251; 99284; G0008; J7030; J7120; 90686; A4216; G0463